=== PATIENT | male | born 1950 | race Caucasian/White ===

== ENCOUNTER 2019-06-11 13:55 | Outpatient (CLI) | payer MEDICARE, OTHER, SELFPAY ==
[2019-06-11 15:05] LABS: Basophils % 0.5 %; Eosinophils # 0.2 10^3/uL (0.0-0.8); Eosinophils % 2.5 %; Hematocrit 45.7 % (42.0-52.0); Hemoglobin 15.5 g/dL (11.7-16.6); Lymphocytes # 1.8 10^3/uL (0.8-4.8); Lymphocytes % 28.9 %; Mean Corpuscular HGB Conc 33.9 g/dL (30.0-36.0); Mean Corpuscular Hemoglobin 32.7 pg (28.0-34.0); Mean Corpuscular Volume 96.4 fL (80-94); Mean Platelet Volume 9.3 fL (7.4-10.4); Monocytes # 0.4 10^3/uL (0.2-0.9); Monocytes % 7.2 %; Neutrophils # 3.7 10^3/uL (1.8-7.7); Neutrophils % 60.6 %; Nucleated Red Blood Cells % 0 %; Platelet Count 262 10^3/cmm (130-400); Red Blood Count 4.74 10^6/uL (4.1-5.3); Red Cell Distribution Width 12.4 % (12.1-15.1); White Blood Count 6.1 10^3/uL (4.0-10.0)
[2019-06-11 15:18] LABS: Alanine Aminotransferase 18 U/L (0-41); Albumin Level 4.1 g/dL (3.5-5.2); Alkaline Phosphatase 75 IU/L (40-130); Anion Gap 17.4 (5-19); Blood Urea Nitrogen 14 mg/dL (8-23); Calcium 9.3 mg/dL (8.5-10.5); Carbon Dioxide 23 mmol/L (22-29); Chloride 103 mmol/L (98-107); Globulin 2.5 g/dL (1.3-4.6); Glomerular Filtration Rate 96.1 mL/min (90-130); Glucose 145 mg/dL (65-115); Osmolality Calculated 287 mOsm/kg (285-295); Potassium 4.4 mmol/L (3.5-5.1); Sodium 139 mmol/L (136-145); Total Bilirubin 0.3 mg/dL (0.15-1.2); Total Protein 6.6 g/dL (6.6-8.7)
[2019-06-11 17:55] LABS: Aspartate Amino Transferase 20 U/L (0-40)
[2019-06-11 17:56] LABS: Lactate Dehydrogenase 202 U/L (135-225)
--- NOTE | 2019-06-11 19:25 | ONC FU_ITS ---
Dr. Pritchard Patient Follow-Up Note Patient: Oscar Marques Unit #: [id number]: 1950 Dicatated By: Earnest Pritchard M.D.Date of Visit:Jun 11, 2019 Onc Med Follow-up/Prog Note Chief Complaint: Lymphoma. History of Present Illness: This is a 68 year-old man with diffuse large B-cell lymphoma, germinal center subtype, by clinical evaluation stage IIA. On 05/04/2017 he had presented to the emergency room after become aware of a lump in his upper right thigh/right groin area. Contrast-enhanced CT of the abdomen/pelvis showed right proximal anterior thigh and inguinal lymphadenopathy measuring up to 4.8 x 3.3 x 5.0 cm. Also noted was central mesenteric adenopathy/mass measuring 3.0 x 2.0 cm. A right iliac chain lymph node measured 9.7 mm. The right midabdomen showed a short segment of small bowel demonstrating wall thickening and enhancement with adjacent fat stranding and nodularity, suspicious for nonobstructing lesion. The liver and spleen appeared unremarkable. He was referred to Dr. Talbot. On 05/09/2017 he underwent right inguinal femoral lymph node biopsy. Pathology showed a monotypic B-cell with germinal center phenotype. The cells were positive for CD19, CD20, CD10, FMC 7, and CD23. There was surface kappa light chain restriction noted. The cells were negative for CD5. Overall, the tumor was felt to be comprised 90% of diffuse large B-cell lymphoma, germinal center subtype, and 10% grade 3A follicular lymphoma. Staging PET/CT on 05/18/2017 showed at least 2 hypermetabolic right inguinal lymph nodes consistent with residual lymphoma, the dominant lesion measuring 1.8 cm with SUV 8.0. A central mesenteric lymph node measured 2.7 cm with SUV 6.0, indicating probable lymphoma. There was subtle, questionable activity noted in a right axillary lymph node. This was felt to be possibly reactive, though lymphoma could not be excluded. An irregular 1 cm right upper lobe pulmonary nodule was FDG negative. Mediastinal lymph nodes appeared radiographically benign and without significant FDG uptake. There were no other areas of abnormal uptake described. He began treatment with R-CHOP chemotherapy, cycle 1 day 1 on 05/23/2017. His baseline echocardiogram showed normal left ventricular ejection fraction at 60%. He tolerated the treatment without any acute toxicity. He did develop some mild constipation, which subsequently resolved. He had only moderately severe neutropenia with a dominique ANC of 900. He recovered uneventfully. He is able to proceed with cycle 2 on 06/19/2017. On 06/26/2017 he presented with acute onset of swelling in the right arm. His venous Doppler showed occlusive thrombus in the right subclavian and internal jugular veins. This was presumably Port-A-Cath related. He began anticoagulation with apixaban. He was seen by Dr. Talbot. At that point the swelling was improving, we opted to try and salvage the port. However, on a follow-up fluoroscopy study, the Port-A-Cath tip had migrated, and it did have to be repositioned. Restaging PET/CT on 07/06/2017 showed only subcentimeter residual right inguinal lymph nodes and residual central mesenteric lesion measuring 1 cm, both FDG negative. The questionable right axillary lymph node also was noted to be subcentimeter and FDG negative. Overall, the findings were consistent with complete response to treatment. He was then continued with cycle 3 of R-CHOP on 07/11/2017, with cycle 4 on 07/31/2017, with cycle 5 on 08/21/2017, and with cycle 6 on 09/11/2017. Restaging PET/CT on 10/05/2017 showed no evidence for recurrent or residual malignancy, consistent with complete response. His other medical illnesses include hypertension, hyperlipidemia, and coronary artery disease. He suffered a very mild heart attack 12 years ago. He also has mild asthma, and he has degenerative arthritis. He is a nonsmoker. INTERIM HISTORY: His surveillance CT scans of the chest, abdomen, and pelvis on 07/11/2018 showed no evidence for recurrent lymphoma. There was no adenopathy noted within the chest, abdomen, or pelvis. He continued on observation/expectant management. He is seen for a followup visit. He has been feeling pretty good generally, though he does have some new complaints. The most significant is that he has been having soreness in the right axillary area and also in the right popliteal area. This is been going on for about 2 months. He has not been aware of any injury or other precipitating cause. His energy is not as good as it used to be, but better than it was right after chemotherapy. He pretty much has normal activity. ECOG score is 0. His appetite is good. He has not had fever. Within the past few weeks he has developed some mild night sweating. His breathing is okay with normal activity. He does not complain of cough and he has not been having chest pain. He has no GI or complaints. He does have some achy joints, mainly the hips, knees, and shoulders. He does not complain of headache. He had a significant episode of vertigo which started shortly after his last visit here. It lasted for about a week. He has no focal neurologic symptoms. Medications: Aspir-81 1 (81 mg) Tablet, enteric coated Oral daily, Calcium 1 (650 mg) Tablet Oral daily, Cholecalciferol 1 (5000 Units) Tablet Oral daily, Co Q10 1 (120 mg) Capsule Oral daily, Colace 1 (100 mg) Capsule Oral daily, Lisinopril 1 (5 mg) Tablet Oral daily, Metoprolol Tartrate 1 (25 mg) Tablet Oral b.i.d., Multivitamin Adult 1 Tablet Oral daily, Saw [place] 1 (1000 mg) Capsule Oral daily, Simvastatin 1 (20 mg) Tablet Oral daily Allergies: bee sting and wasp stings. Review of Systems: Constitutional - His energy level is generally good. He is doing all his normal activity. His appetite is good and weight is stable. No fever, chills or hot flashes. Recently he has been having some sweating at night. ECOG score is 0, ENMT - No sinus congestion/drainage. No mouth sores. No sore throat or difficulty swallowing, Hematologic/Lymphatic - No abnormal bruising or bleeding, Respiratory - No shortness of breath. No cough. No pleuritic pain or hemoptysis, Cardiovascular - No angina pain. No palpitations, Gastrointestinal - No nausea or vomiting. No heartburn or acid reflux. No diarrhea or constipation. No blood in the stool or black stools, Genitourinary (M) - No dysuria or hematuria. No urinary frequency. No urgency or incontinence, Musculoskeletal - He has some new soreness/tenderness in his right axilla and in his right popliteal area. He has some arthritis pain in his hips, knees, and shoulders, Integumentary - No skin complications, Neurologic - No headache. He had an episode of vertigo after his last visit here. It lasted about a week. No numbness/paresthesias or other focal neurologic symptoms, Psychiatric - No anxiety or depression. No insomnia. Vital Signs: Performed on Jun 11, 2019 14:02 Height - 73.00 in Weight - 276.6 lbs (HIGH) BSA - 2.47 sq.m BMI - 36.49 (HIGH) Temperature - 98.4 F Pulse - 85 /min Respiration - 20 /min BP - 117/76 mm(hg) O2 Sat - 95 % (LOW) Pain - 0 Physical Examination: Constitutional - He looks good generally, Eyes - Sclerae nonicteric. Conjunctivae clear, ENMT - No lesions noted in the oral cavity, Hematologic/Lymphatic - There is tenderness in the right axilla and in the right popliteal node area. I do not feel any cervical, clavicular, or axillary, or inguinal adenopathy, Respiratory - Lungs are clear with good air movement bilaterally, Cardiovascular - Heart rhythm is regular. There is no murmur, gallop, or rub noted, Abdomen - Soft. Liver and spleen are not enlarged. There is no abdominal mass noted and there is no apparent ascites, Extremities - Slight edema at the ankles. Dorsalis pedis pulses are palpable bilaterally. The circumference of the upper right arm measures about 1 cm greater than the left, Neurologic - No focal neurologic deficits noted. Lab/Imaging: Test performed on Jun 11, 2019 14:45 LDH (Total) 202 U/L Sodium 139 mmol/L Potassium 4.4 mmol/L Chloride 103 mmol/L CO2 23 mmol/L Anion Gap 17.4 BUN 14 mg/dL Creatinine 0.8 mg/dL Cr Clearance (Est) 149.8000 mL/min eGFR 96.1 mL/min Glucose 145 mg/dL Calcium 9.3 mg/dL Protein, Total 6.6 g/dL Albumin 4.1 g/dL Globulin 2.5 g/dL Bilirubin, Total 0.3 mg/dL ALT (SGPT) 18 U/L AST (SGOT) 20 U/L Alkaline Phosphatase 75 IU/L WBC 6.1 10 3/uL RBC 4.74 10 6/uL HGB 15.5 g/dL HCT 45.7 % MCV 96.4 fL MCH 32.7 pg MCHC 33.9 g/dL RDW 12.4 % Platelet Count 262 10 3/cmm MPV 9.3 fL Neutrophils 3.7 10 3/uL Lymphocytes 1.8 10 3/uL Monocytes 0.4 10 3/uL Eosinophils 0.2 10 3/uL Basophils 0.0 10 3/uL Neutrophil % 60.6 % Lymphocyte % 28.9 % Monocyte % 7.2 % Eosinophil % 2.5 % Basophils % 0.5 % Impression: 1. Patient with diffuse large B-cell lymphoma, germinal center subtype. By clinical evaluation, his disease is stage IIA. 2. He underwent right inguinal femoral lymph node biopsy on 05/09/2017. His other medical illnesses include: 3. Hypertension. 4. Hyperlipidemia. 5. Coronary artery disease with history of light heart attack 12 years ago. He has been managed medically. 6. Mild asthma. 7. Degenerative arthritis. He underwent treatment with 6 cycles of R-CHOP chemotherapy, from 05/29/2017 to 09/11/2017. His treatment was complicated by a Port-A-Cath related thrombosis, requiring repositioning of the catheter tip and anticoagulation with apixaban. Other side effects included neutropenia, fatigue, and mild neuropathy. His restaging PET/CT on 10/05/2017 was consistent with complete response. During follow-up he has continued to have some fatigue and he still has some residual neuropathy, though it did show gradual improvement. His surveillance CT scans in June 2018 showed no evidence for recurrent lymphoma, and he continued observation/expectant management. During the past 2 months he has had soreness in the right axilla and right popliteal area. This is a little worrisome, as there is been no apparent cause for it and they are both lymph node bearing areas. He also has been having some mild night sweating. Plan: I am going to schedule him for a restaging whole-body PET/CT, subject to verification of insurance coverage. He will have further evaluation as indicated. Signed By: Earnest Pritchard M.D. <<Signature on File>>
== END 2019-06-11 13:56 | disposition home or self-care (01) ==
LOC: ONCMED 13:57
PROVIDERS: Family Provider Family Medicine; PCP Family Medicine; Visit Provider Internal Medicine Medical Oncology
DX: Z08 Encounter for follow-up examination after completed treatment for malignant neoplasm (principal); Z85.72 Personal history of non-Hodgkin lymphomas; I10 Essential (primary) hypertension; E78.5 Hyperlipidemia, unspecified; I25.10 Atherosclerotic heart disease of native coronary artery without angina pectoris; I25.2 Old myocardial infarction; J45.20 Mild intermittent asthma, uncomplicated; M19.90 Unspecified osteoarthritis, unspecified site; Z79.82 Long term (current) use of aspirin; Z79.899 Other long term (current) drug therapy; Z92.21 Personal history of antineoplastic chemotherapy
CPT/HCPCS: 36415; 80053; 83615; 85025; 99214

== ENCOUNTER 2020-01-07 14:04 | Outpatient (CLI) | payer MEDICARE, OTHER, SELFPAY ==
[2020-01-07 14:43] LABS: Basophils % 0.5 %; Eosinophils # 0.2 10^3/uL (0.0-0.8); Eosinophils % 2.3 %; Hematocrit 45.4 % (42.0-52.0); Hemoglobin 15.1 g/dL (11.7-16.6); Lymphocytes # 1.8 10^3/uL (0.8-4.8); Lymphocytes % 21.8 %; Mean Corpuscular HGB Conc 33.3 g/dL (30.0-36.0); Mean Corpuscular Hemoglobin 32.2 pg (28.0-34.0); Mean Corpuscular Volume 96.8 fL (80-94); Mean Platelet Volume 9.3 fL (7.4-10.4); Monocytes # 0.5 10^3/uL (0.2-0.9); Neutrophils # 5.83 10^3/uL (1.8-7.7); Nucleated Red Blood Cells % 0 %; Platelet Count 307 10^3/cmm (130-400); Red Blood Count 4.69 10^6/uL (4.1-5.3); Red Cell Distribution Width 12.6 % (12.1-15.1); White Blood Count 8.4 10^3/uL (4.0-10.0)
[2020-01-07 14:55] LABS: Alanine Aminotransferase 18 U/L (0-41); Albumin Level 4.4 g/dL (3.5-5.2); Alkaline Phosphatase 80 IU/L (40-130); Anion Gap 16.2 (5-19); Aspartate Amino Transferase 18 U/L (0-40); Blood Urea Nitrogen 18 mg/dL (8-23); Calcium 10.1 mg/dL (8.5-10.5); Carbon Dioxide 23 mmol/L (22-29); Chloride 102 mmol/L (98-107); Globulin 2.7 g/dL (1.3-4.6); Glomerular Filtration Rate 66.4 mL/min (90-130); Glucose 128 mg/dL (65-115); Lactate Dehydrogenase 184 U/L (135-225); Osmolality Calculated 288 mOsm/kg (285-295); Potassium 4.2 mmol/L (3.5-5.1); Sodium 137 mmol/L (136-145); Total Bilirubin 0.5 mg/dL (0.15-1.2); Total Protein 7.1 g/dL (6.6-8.7)
--- NOTE | 2020-01-11 07:31 | ONC FU_ITS ---
Dr. Pritchard Patient Follow-Up Note Patient: Oscar Marques Unit #: [id number]: 1950 Dicatated By: Earnest Pritchard M.D.Date of Visit:Jan 07, 2020 Onc Med Follow-up/Prog Note Chief Complaint: Lymphoma. History of Present Illness: This is a 69 year-old man with diffuse large B-cell lymphoma, germinal center subtype, by clinical evaluation stage IIA. On 05/04/2017 he had presented to the emergency room after become aware of a lump in his upper right thigh/right groin area. Contrast-enhanced CT of the abdomen/pelvis showed right proximal anterior thigh and inguinal lymphadenopathy measuring up to 4.8 x 3.3 x 5.0 cm. Also noted was central mesenteric adenopathy/mass measuring 3.0 x 2.0 cm. A right iliac chain lymph node measured 9.7 mm. The right midabdomen showed a short segment of small bowel demonstrating wall thickening and enhancement with adjacent fat stranding and nodularity, suspicious for nonobstructing lesion. The liver and spleen appeared unremarkable. He was referred to Dr. Talbot. On 05/09/2017 he underwent right inguinal femoral lymph node biopsy. Pathology showed a monotypic B-cell with germinal center phenotype. The cells were positive for CD19, CD20, CD10, FMC 7, and CD23. There was surface kappa light chain restriction noted. The cells were negative for CD5. Overall, the tumor was felt to be comprised 90% of diffuse large B-cell lymphoma, germinal center subtype, and 10% grade 3A follicular lymphoma. Staging PET/CT on 05/18/2017 showed at least 2 hypermetabolic right inguinal lymph nodes consistent with residual lymphoma, the dominant lesion measuring 1.8 cm with SUV 8.0. A central mesenteric lymph node measured 2.7 cm with SUV 6.0, indicating probable lymphoma. There was subtle, questionable activity noted in a right axillary lymph node. This was felt to be possibly reactive, though lymphoma could not be excluded. An irregular 1 cm right upper lobe pulmonary nodule was FDG negative. Mediastinal lymph nodes appeared radiographically benign and without significant FDG uptake. There were no other areas of abnormal uptake described. He began treatment with R-CHOP chemotherapy, cycle 1 day 1 on 05/23/2017. His baseline echocardiogram showed normal left ventricular ejection fraction at 60%. He tolerated the treatment without any acute toxicity. He did develop some mild constipation, which subsequently resolved. He had only moderately severe neutropenia with a dominique ANC of 900. He recovered uneventfully. He is able to proceed with cycle 2 on 06/19/2017. On 06/26/2017 he presented with acute onset of swelling in the right arm. His venous Doppler showed occlusive thrombus in the right subclavian and internal jugular veins. This was presumably Port-A-Cath related. He began anticoagulation with apixaban. He was seen by Dr. Talbot. At that point the swelling was improving, we opted to try and salvage the port. However, on a follow-up fluoroscopy study, the Port-A-Cath tip had migrated, and it did have to be repositioned. Restaging PET/CT on 07/06/2017 showed only subcentimeter residual right inguinal lymph nodes and residual central mesenteric lesion measuring 1 cm, both FDG negative. The questionable right axillary lymph node also was noted to be subcentimeter and FDG negative. Overall, the findings were consistent with complete response to treatment. He was then continued with cycle 3 of R-CHOP on 07/11/2017, with cycle 4 on 07/31/2017, with cycle 5 on 08/21/2017, and with cycle 6 on 09/11/2017. Restaging PET/CT on 10/05/2017 showed no evidence for recurrent or residual malignancy, consistent with complete response. His other medical illnesses include hypertension, hyperlipidemia, and coronary artery disease. He suffered a very mild heart attack 12 years ago. He also has mild asthma, and he has degenerative arthritis. He is a nonsmoker. INTERIM HISTORY: His surveillance CT scans of the chest, abdomen, and pelvis on 07/11/2018 showed no evidence for recurrent lymphoma. There was no adenopathy noted within the chest, abdomen, or pelvis. He continued on observation/expectant management. He is seen for a followup visit. He has been feeling pretty good generally. His most significant complaint is that both he and his have recently had COVID-19 infection, though at this point he has pretty well recovered. He still tires out real fast, but his energy is otherwise pretty good. His ECOG score is 1. His appetite had declined significantly, but it is getting better. He does not have fever or night sweats. He has some shortness of breath and he has occasional cough. He does not complain of chest pain. He has no GI/ complaints other than some constipation. He has joint pain, which he manages adequately with Excedrin. He does not complain of headache. He does have episodes of inner ear vertigo. 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 Medications: Aspir-81 1 (81 mg) Tablet, enteric coated Oral daily, Calcium 1 (650 mg) Tablet Oral daily, Cholecalciferol 1 (5000 Units) Tablet Oral daily, Co Q10 1 (120 mg) Capsule Oral daily, Colace 1 (100 mg) Capsule Oral daily, Lisinopril 1 (5 mg) Tablet Oral daily, Metoprolol Tartrate 1 (25 mg) Tablet Oral b.i.d., Multivitamin Adult 1 Tablet Oral daily, Saw [place] 1 (1000 mg) Capsule Oral daily, Simvastatin 1 (20 mg) Tablet Oral daily Allergies: bee sting and wasp stings. Review of Systems: Constitutional - His energy has been pretty good, but he does tire out real fast. Appetite had declined with the COVID-19 illness, but is getting better. He does not have fever or night sweats. ECOG score is 1, ENMT - No sinus congestion/drainage. No mouth sores. No sore throat or difficulty swallowing, Hematologic/Lymphatic - No abnormal bruising or bleeding, Respiratory - He has some shortness of breath. He has just occasional cough. No pleuritic pain or hemoptysis, Cardiovascular - No angina pain. No palpitations, Gastrointestinal - No nausea or vomiting. No heartburn or acid reflux. He has had some constipation. No blood in the stool or black stools, Genitourinary (M) - No dysuria or hematuria. No urinary frequency. No urgency or incontinence, Musculoskeletal - He has joint pain, but it is managed adequately with Excedrin, Integumentary - No skin rash, Neurologic - No headache. He has episodes of inner ear vertigo. 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 No other focal neurologic symptoms, Psychiatric - No anxiety or depression. No insomnia. Vital Signs: Performed on Jan 07, 2020 15:02 Height - 73.00 in Weight - 269.8 lbs (LOW) BSA - 2.44 sq.m BMI - 35.60 (HIGH) Temperature - 98.2 F (LOW) Pulse - 99 /min Respiration - 20 /min BP - 118/71 mm(hg) O2 Sat - 97 % Pain - 0 Physical Examination: Constitutional - He looks good generally, Eyes - Sclerae nonicteric. Conjunctivae clear, ENMT - No lesions noted in the oral cavity, Hematologic/Lymphatic - No cervical, clavicular, or axillary adenopathy, Respiratory - Lungs are clear with some decrease in air movement bilaterally, Cardiovascular - Heart rhythm is regular. There is no murmur, gallop, or rub noted, Abdomen - Soft. Liver and spleen are not enlarged. There is no abdominal mass noted and there is no apparent ascites, Extremities - No edema, Neurologic - No focal neurologic deficits noted. Lab/Imaging: Test performed on Jan 07, 2020 14:15 LDH (Total) 184 U/L Sodium 137 mmol/L Potassium 4.2 mmol/L Chloride 102 mmol/L CO2 23 mmol/L Anion Gap 16.2 BUN 18 mg/dL Creatinine 1.1 mg/dL Cr Clearance (Est) 107.4300 mL/min eGFR 66.4 mL/min Glucose 128 mg/dL Osmolality - Calculated 288 mOsm/kg Calcium 10.1 mg/dL Protein, Total 7.1 g/dL Albumin 4.4 g/dL Globulin 2.7 g/dL Bilirubin, Total 0.5 mg/dL ALT (SGPT) 18 U/L AST (SGOT) 18 U/L Alkaline Phosphatase 80 IU/L WBC 8.4 10 3/uL RBC 4.69 10 6/uL HGB 15.1 g/dL HCT 45.4 % MCV 96.8 fL MCH 32.2 pg MCHC 33.3 g/dL RDW 12.6 % Platelet Count 307 10 3/cmm MPV 9.3 fL Neutrophils 5.83 10 3/uL Lymphocytes 1.8 10 3/uL Monocytes 0.5 10 3/uL Eosinophils 0.2 10 3/uL Basophils 0.0 10 3/uL Neutrophil % 69.0 % Lymphocyte % 21.8 % Monocyte % 6.0 % Eosinophil % 2.3 % Basophils % 0.5 % NRBC % 0 % Impression: 1. Patient with diffuse large B-cell lymphoma, germinal center subtype. By clinical evaluation, his disease is stage IIA. 2. He underwent right inguinal femoral lymph node biopsy on 05/09/2017. His other medical illnesses include: 3. Hypertension. 4. Hyperlipidemia. 5. Coronary artery disease with history of light heart attack 12 years ago. He has been managed medically. 6. Mild asthma. 7. Degenerative arthritis. He underwent treatment with 6 cycles of R-CHOP chemotherapy, from 05/29/2017 to 09/11/2017. His treatment was complicated by a Port-A-Cath related thrombosis, requiring repositioning of the catheter tip and anticoagulation with apixaban. Other side effects included neutropenia, fatigue, and mild neuropathy. His restaging PET/CT on 10/05/2017 was consistent with complete response. During follow-up he has continued to have some fatigue and he still has some residual neuropathy, though it did show gradual improvement. His surveillance CT scans in June 2018 showed no evidence for recurrent lymphoma, and he continued observation/expectant management. He has had a recent COVID-19 infection, from which he has now pretty well recovered. He still has some fatigue, but that is getting better. His clinical status has otherwise been stable. He does have some residual neuropathy from the chemotherapy. There has been no evidence, though, of recurrence of the lymphoma. Plan: He remains on observation/expectant management. I will see him again in 6 months. Signed By: Earnest Pritchard M.D. <<Signature on File>>
== END 2020-01-07 14:05 | disposition home or self-care (01) ==
LOC: ONCMED 14:08
PROVIDERS: PCP Family Medicine; Visit Provider Internal Medicine Medical Oncology
DX: Z08 Encounter for follow-up examination after completed treatment for malignant neoplasm (principal); Z85.72 Personal history of non-Hodgkin lymphomas; R53.83 Other fatigue; G62.0 Drug-induced polyneuropathy; T45.1X5S Adverse effect of antineoplastic and immunosuppressive drugs, sequela; I10 Essential (primary) hypertension; I25.10 Atherosclerotic heart disease of native coronary artery without angina pectoris; E78.5 Hyperlipidemia, unspecified; J45.909 Unspecified asthma, uncomplicated; M19.90 Unspecified osteoarthritis, unspecified site; I25.2 Old myocardial infarction; Z92.21 Personal history of antineoplastic chemotherapy
CPT/HCPCS: 36415; 80053; 83615; 85025; G0463

== ENCOUNTER 2020-06-07 11:55 | Observation (INO) | payer MEDICARE, OTHER, SELFPAY ==
[2020-06-07] VITALS (11 sets, daily range): BP systolic 110–146; BP diastolic 69–102; PULSE 70–91; RESP 18–22; TEMP 36.5–37.2; O2SAT 93–99; BMI 34.2
--- NOTE | 2020-06-07 13:08 | ECG_ITS ---
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 Measurements Intervals Cotton Rate: 86 P: 32 NC: 176 QRS: -32 QRSD: 125 T: 9 QT: 368 QTc: 440 Interpretive Statements SINUS RHYTHM MARKED LEFT AXIS DEVIATION [QRS AXIS < -30] RIGHT BUNDLE BRANCH BLOCK [120+ ms QRS DURATION, UPRIGHT V1, 40+ ms S IN I/aVL/V4/V5/V6] No previous ECG available for comparison Electronically Signed On 06-07-2020 20:17:24 CDT by Kirby Santo M.D. [id number]
--- NOTE | 2020-06-07 13:08 | XRR_ITS ---
PROCEDURE INFORMATION: Exam: XR Chest Exam date and time: 06/07/2020 1:15 PM Age: 69 years old Clinical indication: Chest pain; Other: Central; Patient HX: HX of lymphoma; Additional info: Chest pain, central 2-3 days TECHNIQUE: Imaging protocol: XR of the chest Views: 1 view. COMPARISON: CT Chest/Abdomen/Pelvis w IV* 07/11/2018 9:43 AM FINDINGS: Lungs: Hyperinflation. No CHF or focal consolidation. Pleural spaces: Unremarkable. No pleural effusion. No pneumothorax. Heart/Mediastinum: Unremarkable. No cardiomegaly. Bones/joints: No acute findings. XR/XR chest 1V portable [id number] IMPRESSION: No acute findings.
--- NOTE | 2020-06-07 13:34 | W.ED.CHESTPA ---
HPI - Chest Pain General: Chief Complaint: Chest Pain Stated Complaint: CHEST PRESSURE Time Seen by Provider: 06/07/20 13:08 History of Present Illness: HPI narrative: 69-year-old male presents emergency room complaining of chest discomfort. He has no history of coronary disease last several days he has noticed that with exertion he gets chest pressure the last up to 30 minutes it is relieved by rest and nitroglycerin. Today he had some slight pressure in his chest while resting. He had an [place] several years ago but never had any stenting done. He is not had any stress test since then. MD complaint: chest heaviness and chest discomfort Pertinent past history: coronary artery disease Onset (ago): day(s) Timing of current episode: episodic Prior episodes: Yes Onset: during exertion Pain location: substernal and left chest Pain radiation: none Severity: moderate Quality: tightness and heaviness Relieving factors: nitroglycerin and rest Exacerbating factors: nothing Associated symptoms: Reports dyspnea, fever(s) and leg edema; Deny abdominal pain, diaphoresis, nausea, palpitations, sense of impending doom, syncope or vomiting Treatment prior to arrival: none Review of Systems Const: Reports: fever(s); Denies: diaphoresis ENMT: Denies: throat pain, ear or mastoid pain, nasal discharge or nasal congestion Card: Denies: palpitations or syncope Resp: Reports: dyspnea GI: Denies: abdominal pain, nausea or vomiting : Denies: flank pain, dysuria, urinary frequency or urinary urgency Skin/Breast: Denies: rash or pruritus PFS ED PFSH: Medical History Coronary artery disease HTN (hypertension) Hyperlipidemia Lymphoma Social History (Updated 06/07/20 @ 22:12 by John Martin M.D) Marital status: Physical Exam Const: COMMON NORMALS: no acute distress GENERAL APPEARANCE: cooperative and comfortable ORIENTATION/CONSCIOUSNESS: Yes awake, Yes oriented to person, Yes oriented to place and Yes oriented to time HENMT: COMMON NORMALS: normocephalic, atraumatic and hearing grossly normal bilaterally HEAD & SCALP: normocephalic and atraumatic Neck/C-Spine: COMMON NORMALS: no JVD Resp: COMMON NORMALS: normal respiratory effort, No retractions, No use of accessory muscles and clear to auscultation bilaterally AUSCULTATION: clear to auscultation bilaterally Cardio: COMMON NORMALS: no JVD, regular rate, regular rhythm and No murmurs present (Cardio) RATE: regular rate RHYTHM: regular rhythm GI: COMMON NORMALS: Soft to palpation and No hepatosplenomegaly present AUSCULTATION: Yes normoactive bowel sounds PALPATION: Yes Soft to palpation, No Tenderness to palpation present (GI), No Guarding due to palpation present (GI) and Yes No hepatosplenomegaly present Extremity: COMMON NORMALS: normal to inspection, capillary refill normal, no clubbing, cyanosis or edema, no calf tenderness and no pedal edema Neuro: SENSORIUM/ORIENTATION: Yes oriented to person, Yes oriented to place and Yes oriented to time Skin: COMMON NORMALS: no rashes or lesions noted GENERAL SKIN EXAM: no rashes or lesions noted Course Vital Signs: Vital signs: Vital Signs Temperature 98.9 F 06/08/20 12:51 Pulse Rate 86 06/08/20 13:00 Respiratory Rate 21 H 06/08/20 13:00 Blood Pressure 122/79 06/08/20 13:00 Pulse Oximetry 93 06/08/20 13:00 MDM - Chest Pain MDM Narrative: Medical decision making narrative: Patient has unstable angina. Symptoms have been relieved by nitro. We will go ahead and admit to consult Dr. Kelly. Orders have been written. Discussed with Dr. Cross. Lab Data: Labs: Lab Results 06/07/20 06/07/20 06/07/20 Range/Units 13:38 13:38 13:38 WBC 6.6 (4.0-10.0) 10^3/ uL RBC 4.85 (4.1-5.3) 10^6/u L Hgb 15.5 (11.7-16.6) g/dL Hct 47.4 (42.0-52.0) % MCV 97.7 H (80-94) fL MCH 32.0 (28.0-34.0) pg MCHC 32.7 (30.0-36.0) g/dL RDW 12.3 (12.1-15.1) % Plt Count 287 (130-400) 10^3/c mm MPV 9.4 (7.4-10.4) fL Neut % (Auto) 58.9 % Lymph % (Auto) 27.6 % [place] % (Auto) 8.7 % Eos % (Auto) 3.7 % Baso % (Auto) 0.8 % Neut # (Auto) 3.86 (1.8-7.7) 10^3/u L Lymph # (Auto) 1.8 (0.8-4.8) 10^3/u L [place] # (Auto) 0.6 (0.2-0.9) 10^3/u L Eos # (Auto) 0.2 (0.0-0.8) 10^3/u L Baso # (Auto) 0.1 (0.0-0.1) 10^3/u L Nucleated RBC % (a uto) 0 % Nucleated RBCs # 0.0 /100WBC Sodium 138 (136-145) mmol/L Potassium 4.3 (3.5-5.1) mmol/L Chloride 102 (98-107) mmol/L Carbon Dioxide 26 (22-29) mmol/L Anion Gap 14.3 (5-19) BUN 14 (8-23) mg/dL Creatinine 0.7 (0.7-1.2) mg/dL GFR Calculation 111.8 (90-130) mL/min Glucose 93 (65-115) mg/dL Calculated Osmolal ity 286 (285-295) mOsm/k g Calcium 9.8 (8.5-10.5) mg/dL Total Bilirubin 0.4 (0.15-1.2) mg/dL AST 16 (0-40) U/L ALT 17 (0-41) U/L Alkaline Phosphata se 79 (40-130) IU/L Creatine Kinase 106 (39-308) U/L Troponin T Baselin e 11 (0-15) ng/L Total Protein 6.8 (6.6-8.7) g/dL Albumin 4.4 (3.5-5.2) g/dL Globulin 2.4 (1.3-4.6) g/dL Discharge Plan Discharge Patient Disposition: Admitted As Inpatient Admit Provider: Sal Marks Clinical Impression: Unstable angina, Coronary artery disease Condition: Stable Discharge Diet: Cardiac Discharge Activity: Increase activity as tolerated Coding Level of Care Code ED Cable Testers Helper for Chg Fwd Exam Comprehensive
[2020-06-07] MEDS: aspirin 81 mg Chew Tablet 162 MG PO (14:08)
[2020-06-07 14:16] LABS: Basophils # 0.1 10^3/uL (0.0-0.1); Basophils % 0.8 %; Eosinophils # 0.2 10^3/uL (0.0-0.8); Eosinophils % 3.7 %; Hematocrit 47.4 % (42.0-52.0); Hemoglobin 15.5 g/dL (11.7-16.6); Lymphocytes # 1.8 10^3/uL (0.8-4.8); Lymphocytes % 27.6 %; Mean Corpuscular HGB Conc 32.7 g/dL (30.0-36.0); Mean Corpuscular Volume 97.7 fL (80-94); Mean Platelet Volume 9.4 fL (7.4-10.4); Monocytes # 0.6 10^3/uL (0.2-0.9); Monocytes % 8.7 %; Neutrophils # 3.86 10^3/uL (1.8-7.7); Neutrophils % 58.9 %; Nucleated Red Blood Cells % 0 %; Platelet Count 287 10^3/cmm (130-400); Red Blood Count 4.85 10^6/uL (4.1-5.3); Red Cell Distribution Width 12.3 % (12.1-15.1); White Blood Count 6.6 10^3/uL (4.0-10.0)
[2020-06-07 14:29] LABS: Alanine Aminotransferase 17 U/L (0-41); Albumin Level 4.4 g/dL (3.5-5.2); Alkaline Phosphatase 79 IU/L (40-130); Anion Gap 14.3 (5-19); Aspartate Amino Transferase 16 U/L (0-40); Blood Urea Nitrogen 14 mg/dL (8-23); Calcium 9.8 mg/dL (8.5-10.5); Carbon Dioxide 26 mmol/L (22-29); Chloride 102 mmol/L (98-107); Creatine Phosphokinase 106 U/L (39-308); Globulin 2.4 g/dL (1.3-4.6); Glomerular Filtration Rate 111.8 mL/min (90-130); Glucose 93 mg/dL (65-115); Osmolality Calculated 286 mOsm/kg (285-295); Potassium 4.3 mmol/L (3.5-5.1); Sodium 138 mmol/L (136-145); Total Bilirubin 0.4 mg/dL (0.15-1.2); Total Protein 6.8 g/dL (6.6-8.7)
[2020-06-07 14:33] LABS: Troponin(5th) Baseline 11 ng/L (0-15)
--- NOTE | 2020-06-07 15:08 | ECG_ITS ---
[facility] Test Date: 2020-06-07 Pat Name: Oscar Marques Department: Room: Gender: Male Proofer Prepress: : 1950 Requested By: Marco A Alan Order Number: [id number] Varun MD: Kirby Santo M.D. Measurements Intervals [place] Rate: 67 P: 63 NE: 179 QRS: -24 QRSD: 129 T: 26 QT: 407 QTc: 432 Interpretive Statements SINUS RHYTHM WITH SINUS ARRHYTHMIA BORDERLINE LEFT AXIS DEVIATION [QRS AXIS < -20] RIGHT BUNDLE BRANCH BLOCK [120+ ms QRS DURATION, UPRIGHT V1, 40+ ms S IN I/aVL/V4/V5/V6] No previous ECG available for comparison Electronically Signed On 06-07-2020 20:24:21 CDT by Kirby Santo M.D. [id number]
--- NOTE | 2020-06-07 16:38 | P.HP_ITS ---
Providers/Chief Complaint Admitting Physician: Sal Marks Primary Care Provider: Wiley Clifford MD Chief Complaint: CHEST PRESSURE History of Present Illness Oscar Marques is a 69 year old male with past medical history of coronary artery disease, remote [place], hypertension, dyslipidemia who presented to emergency room with complaints of substernal chest pain which started Saturday. The pain is intermittent. Triggered and exacerbated by exertion. Nitroglycerin provides partial relief. He also reports associated shortness of breath which started long time ago but progressively got worse over time. Denies diaphoresis. Reports some palpitations. In the emergency room chest x-ray did not show any acute ischemic changes. First troponin was unremarkable. Currently the pain has resolved. Review of Systems General: Reports: 10 or more systems reviewed and unremarkable except in HPI and below Medications/Allergies Home Medications Medication Instructions Recorded Confirmed Last Taken Type sysusfw-fyvsubpeoapnv-vkekwuqy 1 tab PO DAILY@06/07/20 06/07/20 06/07/20 History [Excedrin Extra Strength] ibuprofen 600 mg PO BEDTIME 06/07/20 06/07/20 06/06/20 History lisinopril 5 mg PO DAILY@06/07/20 06/07/20 06/07/20 History metoprolol tartrate 25 mg PO BID@06/07/20 06/07/20 06/07/20 History simvastatin 20 mg PO DAILY@209906/07/20 06/07/20 06/06/20 History Allergies Allergy/AdvReac Type Severity Reaction Status Date / Time No Known Allergies Allergy Verified 06/07/20 12:21 Vitals/I&O/Wt Last Vital Signs Temp 97.7 F 06/07/20 12:10 Pulse 72 06/07/20 14:12 Resp 22 H 06/07/20 14:12 BP 117/69 06/07/20 14:12 Pulse Ox 98 06/07/20 14:12 Weight last 48 hrs Weight 117.934 kg Physical Exam Narrative: EXAM NARRATIVE: The patient is awake alert and oriented. No acute distress. Mood and affect are appropriate. Responses are adequate. Skin is warm and dry. Moist mucous membranes Neck supple. No JVD Eyes PERRLA, extraocular muscles are intact. Normal speech No focal deficits Heart S1, S2, regular Abdomen is soft, nontender, bowel sounds are present Lungs are clear to auscultation bilaterally. No wheezes or crackles Extremities trace edema. No cyanosis or calf tenderness bilaterally. Data : 06/07/20 13:38 06/07/20 13:38 Other Labs: Laboratory Results WBC 6.6 10^3/uL (4.0-10.0) 06/07/20 13:38 RBC 4.85 10^6/uL (4.1-5.3) 06/07/20 13:38 Hgb 15.5 g/dL (11.7-16.6) 06/07/20 13:38 Hct 47.4 % (42.0-52.0) 06/07/20 13:38 MCV 97.7 fL (80-94) H 06/07/20 13:38 MCH 32.0 pg (28.0-34.0) 06/07/20 13:38 MCHC 32.7 g/dL (30.0-36.0) 06/07/20 13:38 RDW 12.3 % (12.1-15.1) 06/07/20 13:38 Plt Count 287 10^3/cmm (130-400) 06/07/20 13:38 MPV 9.4 fL (7.4-10.4) 06/07/20 13:38 Neut % (Auto) 58.9 % 06/07/20 13:38 Lymph % (Auto) 27.6 % 06/07/20 13:38 [place] % (Auto) 8.7 % 06/07/20 13:38 Eos % (Auto) 3.7 % 06/07/20 13:38 Baso % (Auto) 0.8 % 06/07/20 13:38 Neut # (Auto) 3.86 10^3/uL (1.8-7.7) 06/07/20 13:38 Lymph # (Auto) 1.8 10^3/uL (0.8-4.8) 06/07/20 13:38 [place] # (Auto) 0.6 10^3/uL (0.2-0.9) 06/07/20 13:38 Eos # (Auto) 0.2 10^3/uL (0.0-0.8) 06/07/20 13:38 Baso # (Auto) 0.1 10^3/uL (0.0-0.1) 06/07/20 13:38 Nucleated RBC % (auto) 0 % 06/07/20 13:38 Nucleated RBCs # 0.0 /100WBC 06/07/20 13:38 Sodium 138 mmol/L (136-145) 06/07/20 13:38 Potassium 4.3 mmol/L (3.5-5.1) 06/07/20 13:38 Chloride 102 mmol/L (98-107) 06/07/20 13:38 Carbon Dioxide 26 mmol/L (22-29) 06/07/20 13:38 Anion Gap 14.3 (5-19) 06/07/20 13:38 BUN 14 mg/dL (8-23) 06/07/20 13:38 Creatinine 0.7 mg/dL (0.7-1.2) 06/07/20 13:38 GFR Calculation 111.8 mL/min (90-130) 06/07/20 13:38 Glucose 93 mg/dL (65-115) 06/07/20 13:38 Calculated Osmolality 286 mOsm/kg (285-295) 06/07/20 13:38 Calcium 9.8 mg/dL (8.5-10.5) 06/07/20 13:38 Total Bilirubin 0.4 mg/dL (0.15-1.2) 06/07/20 13:38 AST 16 U/L (0-40) 06/07/20 13:38 ALT 17 U/L (0-41) 06/07/20 13:38 Alkaline Phosphatase 79 IU/L (40-130) 06/07/20 13:38 Creatine Kinase 106 U/L (39-308) 06/07/20 13:38 Troponin T Baseline 11 ng/L (0-15) 06/07/20 13:38 Troponin T 120 Minute 10.22 ng/L (0-15) 06/07/20 15:43 Delta Troponin T -0.78 ABS# (0-10) L 06/07/20 15:43 Total Protein 6.8 g/dL (6.6-8.7) 06/07/20 13:38 Albumin 4.4 g/dL (3.5-5.2) 06/07/20 13:38 Globulin 2.4 g/dL (1.3-4.6) 06/07/20 13:38 Impressions Chest X-Ray 06/07/20 13:08 IMPRESSION: No acute findings. A&P Additional A&P Information 69-year-old male with past medical history of coronary artery disease, dyslipidemia and hypertension who presents with chest pain. Acute coronary syndrome, suspected angina. The patient will be admitted to cardiac unit. Dr. Martin is consulted. The patient was given aspirin. We will continue aspirin, beta-gino, statin, as needed morphine and nitrogl ycerin. Will wait for additional recommendations from recreation therapy director. Hypertension. Currently well controlled. Dyslipidemia. We will check his fasting lipids in the morning. DVT prophylaxis. Teds and SCDs. If he remains longer than 1 midnight we will consider Lovenox. CODE STATUS. He wants to be full code. The plan of care was discussed with the patient and his at the bedside. They verbalized understanding and agreement. Attestations Medical Necessity Statement*: Possible discharge tomorrow Coding Level of Care Code Acute Bootmaker Hand for Yolette Glaser
[2020-06-07 16:39] LABS: Troponin 5 2HR 10.22 ng/L (0-15); Troponin 5 2HR Delta -0.78 ABS# (0-10)
--- NOTE | 2020-06-07 17:13 | PC.NURSE ---
Pt transferred to room 112-1 from ED. Pt A&Ox4, Resp even and non-labored no distress or c/o sob noted. Pt had no c/o chest pain or other pain or discomfort at the present time. Pts IV patent no redness or swelling noted. at bedside. no needs voiced. Pts call light in reach. Will cont to monitor.
--- NOTE | 2020-06-07 18:03 | P.CONIM_ITS ---
Providers/Reason For Consult Consulting Physican/Specialty*: John Martin MD/ Cardiology Reason for Consult*: Chest pain Requesting Physcian: Dr Rueda Attending Physician: Sal Marks Primary Care Provider: Wiley Clifford MD History of Present Illness History of Present Illness Oscar Marques is a 69 year old male with past medical history of coronary artery disease, remote [place], hypertension, dyslipidemia who presented to emergency room with complaints of substernal chest pain which started Saturday. According to patient he was lifting some heavy objects when first noted substernal chest discomfort. Got better with rest but on and off continued with activities through the day. On saturday again he had episodes of chest pain with exertion. Today he decided to come to hospital as he was still having these episodes. Nitros help partially with the discomfort. Says that he had a heart attack in the past during which angiogram showed a small vessel was the culprit. over the last several months he has noted shortness of breath as well that is worsening. EKG in the ER did not show acute ischemic changes. First 2 troponin are not significantly elevated. Review of Systems General: Reports: 10 or more systems reviewed and unremarkable except in HPI and below Const: Denies: diaphoresis Eyes: Denies: change in vision ENMT: Denies: throat pain, ear or mastoid pain, nasal discharge or nasal congestion Card: Reports: chest pain; Denies: palpitations or syncope Resp: Reports: dyspnea GI: Denies: abdominal pain, nausea or vomiting : Denies: flank pain, dysuria, urinary frequency or urinary urgency Skin/Breast: Denies: rash or pruritus Neuro: Denies: headache(s) Psych: Denies: anxiety Meds/Allergies Home Medications and Allergies Home Medications Medication Instructions Recorded Confirmed Last Taken Type jcsysqg-lzabhzubgmhvn-xlplmiws 1 tab PO DAILY@06/07/20 06/07/20 06/07/20 History [Excedrin Extra Strength] ibuprofen 600 mg PO BEDTIME 06/07/20 06/07/20 06/06/20 History lisinopril 5 mg PO DAILY@06/07/20 06/07/20 06/07/20 History metoprolol tartrate 25 mg PO BID@06/07/20 06/07/20 06/07/20 History simvastatin 20 mg PO DAILY@2100 06/07/20 06/07/20 06/06/20 History Allergies Allergy/AdvReac Type Severity Reaction Status Date / Time No Known Allergies Allergy Verified 06/07/20 12:21 PFSH Acute PFSH: Medical History Coronary artery disease HTN (hypertension) Hyperlipidemia Lymphoma Social History (Updated 06/07/20 @ 22:12 by John Martin M.D) Marital status: Vitals/I&O/Wt Last Vital Signs Temp 97.7 F 06/07/20 12:10 Pulse 73 06/07/20 16:35 Resp 21 H 06/07/20 16:25 BP 127/79 06/07/20 16:35 Pulse Ox 99 06/07/20 16:35 Weight last 48 hrs Weight 260 lb Physical Exam Narrative: EXAM NARRATIVE: GENERAL:Alert and oriented x3 Skin is warm and dry. Moist mucous membranes Neck: supple. No JVD Eyes:PERRLA Heart: S1, S2, regular. No lower extremity edema Abdomen is soft, nontender, bowel sounds are present Lungs are clear to auscultation bilaterally. No wheezes or crackles A&P Assessment and plan (1) Coronary artery disease: Status: Acute (2) Hyperlipidemia: Status: Acute (3) HTN (hypertension): Status: Acute (4) Unstable angina: Status: Acute Patient has been having exertional and rest chest pain symptoms that are concerning for unstable angina. We will assess with coronary angiography with possible percutaneous coronary intervention. Risks and benefits of the procedure have been discussed. Risks including bleeding, infection, abnormal heart rhythm, kidney function worsening, heart attack, stroke and discussed.Patient understands the risks and benefits and wants to proceed with the procedure. Aspirin, beta gino, lisinopril and atorvastatin Order echocardiogram Trend troponin NPO past midnight Thank you for involving us with care of this patient. We will continue to follow. 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
[2020-06-07] MEDS: atorvastatin 40 mg Tablet PO (20:47)
[2020-06-07] MEDS: metoprolol tartrate 25 mg Tablet PO (20:47)
[2020-06-07 21:27] LABS: Troponin 5 6HR Delta 0 ng/L (0-12)
[2020-06-08] VITALS (27 sets, daily range): BP systolic 106–159; BP diastolic 53–104; PULSE 72–115; RESP 15–29; TEMP 36.6–37.2; O2SAT 90–97
[2020-06-08 04:52] LABS: Basophils % 0.6 %; Eosinophils # 0.3 10^3/uL (0.0-0.8); Eosinophils % 3.6 %; Lymphocytes # 1.6 10^3/uL (0.8-4.8); Lymphocytes % 22.7 %; Mean Corpuscular HGB Conc 33.3 g/dL (30.0-36.0); Mean Corpuscular Hemoglobin 31.9 pg (28.0-34.0); Mean Corpuscular Volume 95.7 fL (80-94); Mean Platelet Volume 9.2 fL (7.4-10.4); Monocytes # 0.6 10^3/uL (0.2-0.9); Monocytes % 8.5 %; Neutrophils # 4.64 10^3/uL (1.8-7.7); Neutrophils % 64.3 %; Nucleated Red Blood Cells % 0 %; Platelet Count 252 10^3/cmm (130-400); Red Blood Count 4.39 10^6/uL (4.1-5.3); Red Cell Distribution Width 12.2 % (12.1-15.1); White Blood Count 7.2 10^3/uL (4.0-10.0)
[2020-06-08 05:16] LABS: Chol HDL Ratio 3.48 mg/dL (1.0-5.00); Cholesterol 108 mg/dL (0-200); HDL Cholesterol 31 mg/dL (60-100); LDL Cholesterol Calculated 50 mg/dL (50-129); LDL HDL Ratio 1.61 RATIO (0.00-3.22); Triglycerides 134 mg/dL (0-150)
[2020-06-08 05:17] LABS: Alanine Aminotransferase 15 U/L (0-41); Albumin Level 3.7 g/dL (3.5-5.2); Alkaline Phosphatase 71 IU/L (40-130); Anion Gap 12.8 (5-19); Aspartate Amino Transferase 14 U/L (0-40); Blood Urea Nitrogen 11 mg/dL (8-23); Calcium 8.7 mg/dL (8.5-10.5); Carbon Dioxide 25 mmol/L (22-29); Chloride 104 mmol/L (98-107); Globulin 2.4 g/dL (1.3-4.6); Glomerular Filtration Rate 111.8 mL/min (90-130); Glucose 99 mg/dL (65-115); Osmolality Calculated 285 mOsm/kg (285-295); Potassium 3.8 mmol/L (3.5-5.1); Sodium 138 mmol/L (136-145); Total Bilirubin 0.5 mg/dL (0.15-1.2); Total Protein 6.1 g/dL (6.6-8.7)
[2020-06-08] MEDS: diphenhydrAMINE 50 mg Capsule PO (05:47)
[2020-06-08] MEDS: sodium chloride 0.9% 1,000 ML 50 ML IV (05:47)
--- NOTE | 2020-06-08 06:21 | XACV_ITS ---
Exam Room: [facility] Ht: 185 cm Wt: 118 kg BSA: 2.50 m2 Gender: Male : 1950 Exam Priority: Routine Procedure(s): Procedure Description: Diagnostic procedure Procedure Description: Coronary angiography Diagnostic Cath Status: Urgent Diagnostic Findings * LM has luminal irregularities. * LAD has luminal irregularities, gives rise to 3 diagonal arteries that do not have significant disease. * RCA has diffuse luminal irregularities without significant stenosis. * LCx gives rise to a large OM branch. Luminal irregularies are seen. Mid Left circumflex artery is totally occluded after takoff of the OM branch. mCIRC: Severe 100% stenosis, JOHN: 0 flow. * Coronary angiography shows right dominance. Interventional Findings * Procedure detail: We planned on attempting to intervene on BOTTLE ASSEMBLER of left circumflex artery. We engaged the left main artery with XB 3.5 guide catheter. We used 0.014 run-through guidewire to attempt to cross the totally occluded segment. This was followed by attempt with a Fielder XT guidewire. However wire could not cross the occluded segment. Procedure was aborted. Final angiogram showed unchanged findings from before without any complications. Guidewire and guide catheter were removed. TR band was applied to achieve hemostasis.. * ;. Conclusions 1. 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 Unsuccessful revascularization attempt. 2. Otherwise no obstructive coronary artery disease. 3. Normal left ventricular systolic function. Ejection fraction of 50%. Recommendations * Aggressive risk factor modification. * Aspirin and statint therapy. * Blood pressure control. * Outpatient cardiology follow up. Interventional RX Recommendation: medical therapy and/or counseling Diagnostic RX Recommendation: medical therapy and/or counseling Ventriculography Ejection Fraction: 50.0 % Pressures Phase:Rest AO : 118 / 52 ( 78 ) @ 3:01:00 AM LV : 131 / -20 / @ 2:59:00 AM 129 / -11 / @ 3:00:00 AM 288 / 242 / @ 3:01:00 AM 95 / 39 / @ 3:01:00 AM Clinical Evaluation EBL: 5mL-10mL Procedural Details Admit Source: In Patient. Pre-Procedure Time Out. Identified patient by full name and date of as verbalized by the patient/guarantor. Does the consent match the physician's order: Yes. Accurate & Complete Informed Consent: Yes. Inpatient/Outpatient History & Physical on Chart: Yes. If H&P is completed, is and addenduem needed: N/A; If yes, is the addendum complete: N/A. Visualize and Verify Site with Patient/Guarantor: N/A. Relevant Radiology Images available: N/A. Pre-op teaching completed and patient verbalized understanding. The risks, benefits, and alternatives of sedation and/or procedure were discussed by physician. The patient agrees to continue. Procedure started. [facility] Clinical Fraility Score: 3: Managing Well. 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 Chest Pain Symptom Assessment: Typical Angina Symptoms. Cardiovascular Instability: No. PERRLA. Strong, equal hand baseball inspector and repairer bilaterally. Lungs clear x 5 lobes. IV Site on Arrival: 20 gauge in the left anticubital. Oxygen started at 2liters/min via nasal canula. bilateral groins was prepped with chloroprep then draped in the usual sterile fashion. right radial was prepped with chloroprep then draped in the usual sterile fashion. Baseline sample Acquired. HR: 92 BPM. Physician notified. Physician arrived. Physician scrubbed in. Immediate Pre-Procedure Time Out. Correct Patient: Yes; Correct Procedure: Yes; Correct Site: Yes; Correct Patient Position: Yes; Correct Supplies: Yes; Dried Flammable Prep: Yes; Blood Products Available: N/A;. Lidocaine 1% infiltrated to the right radial. Arterial access obtained. A 5 spanish TIG catheter in over wire. Multiple views taken of left coronary artery. Catheter redirected to the RCA. Multiple views taken of right coronary artery. Catheter out. 6 spanish XB 3.5 guide catheter was inserted over the wire. Runthrough guidewire was advanced through the guide catheter to lesion in the mid Circ. PTCA Guidewire Fielder XT, was advanced through the guide catheter to lesion in the mid Circ. both wires out. Catheter out. A 6 spanish Angled Pig catheter in over wire. LV gram performed in MUSTAFA @ 10 mL/second for a total of 30 mL. EDP Sample taken: LV 129/-12,3; HR: 98 BPM; SpO2: 99%. EDP Sample taken: LV 95/39,46; HR: 156 BPM; SpO2: 99%. Pullback taken: LV Off; AO Off; Mean: , Peak to Peak: , SEP: ; HR: 136 BPM; SpO2: 99%. Catheter out. TR band placed. Hemostasis obtained. Post Procedure: Pulses reassessed and unchanged. PERRLA. Strong, equal hand baseball inspector and repairer bilaterally. No VTE prophylaxis required. A TR Band was successful obtaining hemostatsis at the Right Radial artery insertion site. Contrast type used: Omnipaque 300 mgI/mL, 500 mL bottle. Omnipaque 134mL. Complications: none. Medication's Wasted: Lidocaine 1% = 18 mL. Medication's Wasted: Nitro = 49.8 mg. Medication's Wasted: Heparin = 2000 units. Total IV fluids: 100 mL. Estimated blood loss: 5mL-10mL. Post-op diagnosis: BOTTLE ASSEMBLER of left circ. Procedure completed. Patient transferred by wheelchair to 1st floor. Vital chart was stopped. Access Site Site: Right Radial artery Sheath Size: 6 Fr Hemostasis Method: TR Band Hemostasis Success: Successful Procedure Medications Start: 7:25 AM Stop: 7:25 AM Medication: Versed Amount: 1 mg Route: I.V. Start: 7:25 AM Stop: 7:25 AM Medication: Fentanyl Amount: 50 mcg Route: I.V. Start: 7:33 AM Stop: 7:33 AM Medication: Nitrogylcerin Amount: 200 mcg Route: I.A. Start: 7:35 AM Stop: 7:35 AM Medication: Heparin Amount: 5000 units Route: I.V. Start: 7:43 AM Stop: 7:43 AM Medication: Heparin Amount: 5000 units Route: I.V. Start: 7:58 AM Stop: 7:58 AM Medication: Versed Amount: 1 mg Route: I.V. Start: 7:58 AM Stop: 7:58 AM Medication: Fentanyl Amount: 50 mcg Route: I.V. I, the attending physician, have reviewed and verified all procedure medications. Yes, all medications given per verbal order History/Risk Factors Hypertension: Yes Dyslipidemia: Yes Peripheral Arterial Disease (PAD): No Myocardial Infarction (FL): No Obesity: No Renal Disease: No Tobacco Use: Never Prior Interventions PCI: No CABG: No Valve Surgery: No Report Signatures Finalized by John Martin MD on 06/21/2020 09:51 AM
--- NOTE | 2020-06-08 07:24 | W.PM.OPSUD ---
Surgery/Procedure H&P Update DATE OF PROCEDURE: June 08, 2020 DATE H&P PERFORMED: 06/07/20 H&P UPDATE INFORMATION: I have reviewed H&P completed within last 30 days, I have examined patient prior to procedure and No changes to prior documentation PREOP DIAGNOSIS: Unstable angina PRIMARY INDICATION FOR PROCEDURE: Unstable angina PLANNED PROCEDURE: Operation Date: 06/08/20 07:00 Proposed Procedures p Cardiac Catheterization(Not Applicable) - John Martin M.D PATIENT REASSESSED PRIOR TO SEDATION, WITH NO CHANGE NOTED: Yes PHYSICAL EXAM: alert, oriented x 3 and clear to auscultation bilaterally AIRWAY EVAL/ANESTHESIA PLAN: ASA III, Risks, benefits & alternatives of sedation and/or procedure discussed and Patient agrees to continue as planned
--- NOTE | 2020-06-08 08:37 | P.PN_ITS ---
Subjective Subjective: Interval history: Patient is doing well. he underwent coronary angiogram yesterday that showed LUMBER HACKER of LCx in distal segment but otherwise no significant coronary artery disease. Bried attempt at revascularization of the LUMBER HACKER was made but was not successful and given patient's lack of symptoms and relatively small distal vessel, procedure was aborted Vitals/I&O/Wt Last Vital Signs Temp 98 F 06/08/20 04:00 Pulse 84 06/08/20 05:02 Resp 20 H 06/08/20 04:00 BP 111/71 06/08/20 04:00 Pulse Ox 97 06/08/20 04:00 06/07/20 06/08/20 06/08/20 22:59 06:59 14:59 Output Total 350 / 350 Balance -350 / -350 Weight last 48 hrs Weight 260 lb Physical Exam Narrative: EXAM NARRATIVE: GENERAL:Alert and oriented x3 Skin is warm and dry. Moist mucous membranes Neck: supple. No JVD Eyes:PERRLA Heart: S1, S2, regular. No lower extremity edema Abdomen is soft, nontender, bowel sounds are present Lungs are clear to auscultation bilaterally. No wheezes or crackles Data : 06/08/20 04:25 06/08/20 04:25 A&P Assessment and plan (1) Coronary artery disease: Status: Acute (2) Hyperlipidemia: (3) HTN (hypertension): (4) Unstable angina: Status: Acute Patient's chest pain was typical however does not have acute lesions. There is a LUMBER HACKER of the distal LCx which could not be revascularized. Medical therapy. Patient could be from microvascular dysfunction. Will add Imdur. ECHO shows normal LV function Outpatient cardiology follow up Thank you for involving us with care of this patient. Patient is stable to be discharged home today. Please call with questions Attestations Medical Necessity Statement*: Care expected to cross 2 midnights. 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
--- NOTE | 2020-06-08 09:23 | PC.CHAP ---
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 record press supervisor visit [] Patient/Family/Request visit [] Outpatient visit [] Follow-up visit [] Physician referral [] Code/Alert [x] Routine visit [] Staff referral [] Actively dying [] Patient sleeping [x] Family support [] [] Out of room [] Palliative care [] [] Receiving care in room [] Pre-surgical visit [] Trauma [] Long length of stay [] ICU visit [] Other: Relational/Emotional Strength [] Patient feels connected with others/family/visitors/staff [] Distress [] Loneliness/isolation [] Abandonment Spirituality of Patient [] Person of Arlette [] Attends Buddhism of their [place] [] Believes in Prayer [] Reads Bible or Amish materials [] There are Spiritual issues to be addressed Gear Lapper Interventions x] Prayer [x] Active listening [x] Non-anxious presence [x] Spiritual/emotional support [] Crisis/trauma care [] Spiritual counseling [] Bereavement support [] Provided bereavement packet [] Provided Bible/devotional materials [] Provided toy/stuffed animal, coloring book to patient or family member [] Provided Communion [] Anointing/[place] [] Salvation [x] Completed spiritual assessment [] Other: Impact on Illness or Injury [] Angry [] Fearful [] Anxious [] Often cries [] Exhaustion [] Unable to work [] Unable to attend adventism [] Unable to walk/stand [] Unable to read [] Unable to drive [] Unable to eat/drink [] Unable to sleep [] Unable to be with family [] Patient intubated [] Other: Summary present with patient.. 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 all seems normal.. waiting on doctor for additional reports Time spent with patient 10 min
--- NOTE | 2020-06-08 09:27 | USCV_ITS ---
Oscar Marques Age: 69 Gender: M : 1950 Exam Date: 06/08/2020 09:59 Ordering Phys: Sal Marks MD Technologist: Catracho Snyder [place]am [place] [facility] [place]ication: ABNORMAL ANGIOGRAM BP: 125 / 77 HR: 99 Rhythm: Sinus Technical Quality: Adequate MEASUREMENTS (Male / Female) Normal Values 2D ECHO LV Diastolic Diameter PLAX 4.5 cm 4.2 - 5.9 / 3.9 - 5.3 cm LV Systolic Diameter PLAX 2.4 cm IVS Diastolic Thickness 0.9 cm 0.6 - 1.0 / 0.6 - 0.9 cm IVS Systolic Thickness 1.7 cm LVPW Diastolic Thickness 1.0 cm 0.6 - 1.0 / 0.6 - 0.9 cm LVPW Systolic Thickness 1.2 cm LVOT Diameter 2.0 cm LV Ejection Fraction 2D Teich 76.4 % LV Ejection Fraction MOD 2C 67.0 % LV Ejection Fraction 2C AL 67.1 % LA Diameter 3.8 cm M-MODE LV Diastolic Diameter MM 5.4 cm 4.2 - 5.9 / 3.9 - 5.3 cm LV Systolic Diameter MM 3.3 cm LV Ejection Fraction MM Teich 69.1 % IVS Diastolic Thickness MM 1.2 cm 0.6 - 1.0 / 0.6 - 0.9 cm IVS Systolic Thickness MM 1.7 cm LVPW Diastolic Thickness MM 0.9 cm 0.6 - 1.0 / 0.6 - 0.9 cm LVPW Systolic Thickness MM 1.5 cm RV Diastolic Diameter MM 1.8 cm Aortic Annulus Diameter 3.6 cm LA Ao Ratio MM 1.1 MV E Point Septal Separation 1.3 cm DOPPLER AV Peak Velocity 124.0 cm/s LVOT Peak Velocity 89.0 cm/s AV Area Cont Eq vti 3.0 cm squared AV Area Cont Eq pk 2.3 cm squared MV Area PHT 5.0 cm squared Mitral E to A Ratio 0.9 MV E' Velocity 36.5 cm/s Mitral E to MV E' Ratio 11.0 Mitral E to LV E' Lateral Ratio 8.6 Mitral E to LV E' Septal Ratio 15.9 TR Peak Velocity 115.7 cm/s TR Peak Gradient 5.4 mmHg TV Peak E Velocity 85.0 cm/s Right Atrial Pressure 3.0 mmHg Pulmonary Artery Systolic Pressu 8.4 mmHg PV Peak Velocity 100.0 cm/s FINDINGS Left Ventricle Normal left ventricular size and systolic function, EF 67%. No gross wall motion abnormalities. Right Ventricle The right ventricle is normal in size and function. Right Atrium The right atrium is normal in size. Left Atrium The left atrium is normal in size. Mitral Valve No Gross abnormalities noted Aortic Valve No Gross abnormalities noted Tricuspid Valve No Gross abnormalities noted Pulmonic Valve Pulmonic valve not well visualized. Pericardium Normal pericardium without effusion. Aorta Normal ascending aorta dimension. CONCLUSIONS Normal left ventricular size and systolic function, EF 67%. No gross wall motion abnormalities. No significant stenotic or regurgitant lesions. Normal cardiac chamber sizes. There is no pericardial effusion. Compared to the previous study from May 22, 2017, there may not be a significant change Dr Kirby Santo MD FACC (Electronically Signed) Final Date: 08 June 2020 21:04 S
[2020-06-08] MEDS: metoprolol tartrate 25 mg Tablet PO (09:38)
[2020-06-08] MEDS: lisinopril 5 mg Tablet PO (09:38)
[2020-06-08] MEDS: aspirin 81 mg EC Tablet PO (09:39)
--- NOTE | 2020-06-08 10:22 | PM.DCS ---
Discharge Providers Date of Admission: 06/07/20 14:53 Date of Discharge: June 08, 2020 Attending Provider at Admission: Sal Marks Attending Provider at Discharge: Sal Marks Primary Care Provider: Wiley Clifford MD Diagnoses at Discharge Discharge Diagnosis (1) Coronary artery disease: Status: Acute (2) Hyperlipidemia: Status: Acute (3) HTN (hypertension): Status: Acute (4) Unstable angina: Status: Acute Reason for Visit Reason for Visit: CHEST PRESSURE Hospital Course Hospital Course 69-year-old male with past medical history of coronary artery disease, dyslipidemia and hypertension who presents with chest pain. Acute coronary syndrome, unstable angina. Dr. Martin was consulted. The patient underwent cardiac catheterization. Defect in distal segment of circumflex artery was identified. No PCI or stent placement was performed due to caliber of the vessel. Medical management was recommended. The patient is started on aspirin and isosorbide. We will continue beta-gino, statin, lisinopril. The patient was cleared for discharge by Dr. Martin with close outpatient follow-up. Chest pain has currently resolved. The patient is eager to go home. He also denies any shortness of breath, diaphoresis, dizziness or lightheadedness. He is instructed to come back to emergency room if he develops any new symptoms. He verbalized understanding and agreement. Echo is pending. Hypertension. Currently well controlled. Dyslipidemia. Well-controlled. Physical Exam Narrative: EXAM NARRATIVE: The patient is awake alert and oriented. No acute distress. Mood and affect are appropriate. Responses are adequate. Skin is warm and dry. Moist mucous membranes Neck supple. No JVD Eyes PERRLA, extraocular muscles are intact. Normal speech No focal deficits Heart S1, S2, regular Abdomen is soft, nontender, bowel sounds are present Lungs are clear to auscultation bilaterally. No wheezes or crackles Extremities trace edema. No cyanosis or calf tenderness bilaterally. Discharge Data Data Completed and Pending: Completed Studies During Hospitalization Category Date Time Status XR chest 1V noman ble [id number] Stat Exams 06/07/20 13:08 Completed Pending at discharge Category Date Time Status [employer] request for service Routin e Exams 06/08/20 06:21 Ordered CV echo complete* [id number] Routine Ultrasound 06/08/20 09:27 Taken Labs from last 24 hours 06/08/20 06/08/2006/08/21 04:25 04:25 04:25 WBC 7.2 RBC 4.39 Hgb 14.0 Hct 42.0 MCV 95.7 H MCH 31.9 MCHC 33.3 RDW 12.2 Plt Count 252 MPV 9.2 Neut % (Auto) 64.3 Lymph % (Auto) 22.7 [place] % (Auto) 8.5 Eos % (Auto) 3.6 Baso % (Auto) 0.6 Neut # (Auto) 4.64 Lymph # (Auto) 1.6 [place] # (Auto) 0.6 Eos # (Auto) 0.3 Baso # (Auto) 0.0 Nucleated RBC % (a uto) 0 Nucleated RBCs # 0.0 Sodium 138 Potassium 3.8 Chloride 104 Carbon Dioxide 25 Anion Gap 12.8 BUN 11 Creatinine 0.7 GFR Calculation 111.8 Glucose 99 Calculated Osmolal ity 285 Calcium 8.7 Total Bilirubin 0.5 AST 14 ALT 15 Alkaline Phosphata se 71 Creatine Kinase Troponin T Baselin e Troponin T 120 Min elizabeth Delta Troponin T Troponin T Hi Sens 6Hr Troponin T Hi Sens 6Hr Delta Total Protein 6.1 L Albumin 3.7 Globulin 2.4 Triglycerides 134 Cholesterol 108 LDL Cholesterol, C alc 50 HDL Cholesterol 31 L LDL/HDL Ratio 1.61 Cholesterol/HDL Ra latrice 3.48 06/07/20 06/07/20 06/07/20 20:02 15:43 13:38 WBC RBC Hgb Hct MCV MCH MCHC RDW Plt Count MPV Neut % (Auto) Lymph % (Auto) [place] % (Auto) Eos % (Auto) Baso % (Auto) Neut # (Auto) Lymph # (Auto) [place] # (Auto) Eos # (Auto) Baso # (Auto) Nucleated RBC % (a uto) Nucleated RBCs # Sodium Potassium Chloride Carbon Dioxide Anion Gap BUN Creatinine GFR Calculation Glucose Calculated Osmolal ity Calcium Total Bilirubin AST ALT Alkaline Phosphata se Creatine Kinase Troponin T Baselin e 11 Troponin T 120 Min elizabeth 10.22 Delta Troponin T -0.78 L Troponin T Hi Sens 6Hr 11.00 Troponin T Hi Sens 6Hr Delta 0 Total Protein Albumin Globulin Triglycerides Cholesterol LDL Cholesterol, C alc HDL Cholesterol LDL/HDL Ratio Cholesterol/HDL Ra latrice 06/07/20 06/07/20 13:38 13:38 WBC 6.6 RBC 4.85 Hgb 15.5 Hct 47.4 MCV 97.7 H MCH 32.0 MCHC 32.7 RDW 12.3 Plt Count 287 MPV 9.4 Neut % (Auto) 58.9 Lymph % (Auto) 27.6 [place] % (Auto) 8.7 Eos % (Auto) 3.7 Baso % (Auto) 0.8 Neut # (Auto) 3.86 Lymph # (Auto) 1.8 [place] # (Auto) 0.6 Eos # (Auto) 0.2 Baso # (Auto) 0.1 Nucleated RBC % (a uto) 0 Nucleated RBCs # 0.0 Sodium 138 Potassium 4.3 Chloride 102 Carbon Dioxide 26 Anion Gap 14.3 BUN 14 Creatinine 0.7 GFR Calculation 111.8 Glucose 93 Calculated Osmolal ity 286 Calcium 9.8 Total Bilirubin 0.4 AST 16 ALT 17 Alkaline Phosphata se 79 Creatine Kinase 106 Troponin T Baselin e Troponin T 120 Min elizabeth Delta Troponin T Troponin T Hi Sens 6Hr Troponin T Hi Sens 6Hr Delta Total Protein 6.8 Albumin 4.4 Globulin 2.4 Triglycerides Cholesterol LDL Cholesterol, C alc HDL Cholesterol LDL/HDL Ratio Cholesterol/HDL Ra latrice Vitals: Last Vital Signs Temp 98 F 06/08/20 04:00 Pulse 101 H 06/08/20 09:45 Resp 21 H 06/08/20 09:45 BP 134/81 06/08/20 09:45 Pulse Ox 97 (confirmed by t nurse) 06/08/20 09:30 Discharge Plan Discharge Patient Disposition: Home Condition: Stable Prescriptions: New acetaminophen 325 mg Tablet 650 mg PO Q6H PRN (Reason: Mild/Mod Pain Or Temp >/= 101) Qty: 0 RF: 0 aspirin 81 mg Tablet,Delayed Release (Dr/Ec) 81 mg PO DAILY Qty: 30 RF: 0 isosorbide mononitrate 30 mg tablet extended release 24 hr 30 mg PO DAILY Qty: 30 RF: 0 Continued simvastatin 20 mg tablet 20 mg PO DAILY@2099 RF: 0 lisinopril 5 mg tablet 5 mg PO DAILY@ RF: 0 metoprolol tartrate 25 mg tablet 25 mg PO BID@ RF: 0 Discontinued ibuprofen 600 mg Tablet 600 mg PO BEDTIME RF: 0 Excedrin Extra Strength 250-250-65 mg Tablet 1 tab PO DAILY@ RF: 0 Discharge Orders: Discharge Order (Routine); Ordered 06/08/20 Ordered By: Sal Marks Referrals: John Martin M.D [Physician] - 1 week Wiley Clifford MD [Primary Care Provider] - 2 weeks Discharge Diet: Cardiac Discharge Activity: Increase activity as tolerated Patient Instructions: Coronary Artery Disease (DC), Left Heart Catheterization (DC), Right Heart Catheterization (DC), Chronic Hypertension (DC) Activity Restrictions/Additional Instructions: Please follow-up with Dr. Martin and your primary care physician as instructed. Please return to emergency room if you develop any new chest pain, diaphoresis, shortness of breath, dizziness or lightheadedness, low blood pressure, or any other new complaints. Please monitor your blood pressure regularly and discuss with your primary care provider possible adjustments of your medications if needed. Discharge Attestations Time Spent in Discharge Care*: less than 30 min Quality Metrics Clinical Quality Measures During this hospital stay, did patient experience: AMI Clinical Trial Participant: No Contraindication to aspirin (AMI): Aspirin given Contraindication to statin: Statin prescribed Coding Level of Care Code Acute Chg FW DC note Diagnoses Coronary artery disease I25.10 Hyperlipidemia E78.5 HTN (hypertension) I10 Unstable angina I20.0
== END 2020-06-08 13:40 | disposition home or self-care (01) ==
LOC: ER 13:08 → CSU 06-08 02:39
PROVIDERS: Internal Medicine; Admitting Provider Internal Medicine; Emergency Provider Family Medicine; PCP Family Medicine; Visit Provider Internal Medicine
DX: I25.110 Atherosclerotic heart disease of native coronary artery with unstable angina pectoris (principal); E78.5 Hyperlipidemia, unspecified; I10 Essential (primary) hypertension; I25.2 Old myocardial infarction; Z79.82 Long term (current) use of aspirin
CPT/HCPCS: 36415; 71045; 80053; 80061; 82550; 84484; 85025; 93005; 93306; 93452; 96360; 96361; 99285; C1769; C1887; C1894; G0378; J1644; J2250; J3010; J3490; J7030; J7050; Q0163; Q9967

== ENCOUNTER → 2020-06-21 15:33 | Outpatient (BNVA) | payer MEDICARE, OTHER, SELFPAY | PROVIDERS: PCP Family Medicine; Visit Provider Nurse Practitioner Family | DX: I25.10 Atherosclerotic heart disease of native coronary artery without angina pectoris (principal); I10 Essential (primary) hypertension | CPT/HCPCS: 80048 ==

== ENCOUNTER 2020-07-19 14:20 | Outpatient (CLI) | payer MEDICARE, OTHER, SELFPAY ==
[2020-07-19 15:10] LABS: Basophils % 0.6 %; Eosinophils # 0.2 10^3/uL (0.0-0.8); Eosinophils % 3.3 %; Hematocrit 43.5 % (42.0-52.0); Hemoglobin 14.4 g/dL (11.7-16.6); Lymphocytes # 1.6 10^3/uL (0.8-4.8); Lymphocytes % 23.6 %; Mean Corpuscular HGB Conc 33.1 g/dL (30.0-36.0); Mean Corpuscular Hemoglobin 31.4 pg (28.0-34.0); Mean Platelet Volume 9.4 fL (7.4-10.4); Monocytes # 0.5 10^3/uL (0.2-0.9); Monocytes % 7.4 %; Neutrophils # 4.48 10^3/uL (1.8-7.7); Neutrophils % 64.8 %; Nucleated Red Blood Cells % 0 %; Platelet Count 278 10^3/cmm (130-400); Red Blood Count 4.58 10^6/uL (4.1-5.3); Red Cell Distribution Width 12.3 % (12.1-15.1); White Blood Count 6.9 10^3/uL (4.0-10.0)
[2020-07-19 15:31] LABS: Alanine Aminotransferase 17 U/L (0-41); Alkaline Phosphatase 80 IU/L (40-130); Aspartate Amino Transferase 16 U/L (0-40); Blood Urea Nitrogen 14 mg/dL (8-23); Calcium 8.6 mg/dL (8.5-10.5); Carbon Dioxide 24 mmol/L (22-29); Chloride 105 mmol/L (98-107); Globulin 2.2 g/dL (1.3-4.6); Glomerular Filtration Rate 83.4 mL/min (90-130); Glucose 118 mg/dL (65-115); Lactate Dehydrogenase 166 U/L (135-225); Osmolality Calculated 290 mOsm/kg (285-295); Sodium 139 mmol/L (136-145); Total Bilirubin 0.3 mg/dL (0.15-1.2); Total Protein 6.2 g/dL (6.6-8.7)
--- NOTE | 2020-07-20 07:41 | ONC FU_ITS ---
Dr. Pritchard Patient Follow-Up Note Patient: Oscar Marques Unit #: [id number]: 1950 Dicatated By: Earnest Pritchard M.D.Date of Visit:July 19, 2020 Onc Med Follow-up/Prog Note Chief Complaint: Lymphoma. 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 On 05/04/2017 he had presented to the emergency room after become aware of a lump in his upper right thigh/right groin area. Contrast-enhanced CT of the abdomen/pelvis showed right proximal anterior thigh and inguinal lymphadenopathy measuring up to 4.8 x 3.3 x 5.0 cm. Also noted was central mesenteric adenopathy/mass measuring 3.0 x 2.0 cm. A right iliac chain lymph node measured 9.7 mm. The right midabdomen showed a short segment of small bowel demonstrating wall thickening and enhancement with adjacent fat stranding and nodularity, suspicious for nonobstructing lesion. The liver and spleen appeared unremarkable. He was referred to Dr. Talbot. On 05/09/2017 he underwent right inguinal femoral lymph node biopsy. Pathology showed a monotypic B-cell with germinal center phenotype. The cells were positive for CD19, CD20, CD10, FMC 7, and CD23. There was surface kappa light chain restriction noted. The cells were negative for CD5. Overall, the tumor was felt to be comprised 90% of diffuse large B-cell lymphoma, germinal center subtype, and 10% grade 3A follicular lymphoma. Staging PET/CT on 05/18/2017 showed at least 2 hypermetabolic right inguinal lymph nodes consistent with residual lymphoma, the dominant lesion measuring 1.8 cm with SUV 8.0. A central mesenteric lymph node measured 2.7 cm with SUV 6.0, indicating probable lymphoma. There was subtle, questionable activity noted in a right axillary lymph node. This was felt to be possibly reactive, though lymphoma could not be excluded. An irregular 1 cm right upper lobe pulmonary nodule was FDG negative. Mediastinal lymph nodes appeared radiographically benign and without significant FDG uptake. There were no other areas of abnormal uptake described. He began treatment with R-CHOP chemotherapy, cycle 1 day 1 on 05/23/2017. His baseline echocardiogram showed normal left ventricular ejection fraction at 60%. He tolerated the treatment without any acute toxicity. He did develop some mild constipation, which subsequently resolved. He had only moderately severe neutropenia with a dominique ANC of 900. He recovered uneventfully. He is able to proceed with cycle 2 on 06/19/2017. On 06/26/2017 he presented with acute onset of swelling in the right arm. His venous Doppler showed occlusive thrombus in the right subclavian and internal jugular veins. This was presumably Port-A-Cath related. He began anticoagulation with apixaban. He was seen by Dr. Talbot. At that point the swelling was improving, we opted to try and salvage the port. However, on a follow-up fluoroscopy study, the Port-A-Cath tip had migrated, and it did have to be repositioned. Restaging PET/CT on 07/06/2017 showed only subcentimeter residual right inguinal lymph nodes and residual central mesenteric lesion measuring 1 cm, both FDG negative. The questionable right axillary lymph node also was noted to be subcentimeter and FDG negative. Overall, the findings were consistent with complete response to treatment. He was then continued with cycle 3 of R-CHOP on 07/11/2017, with cycle 4 on 07/31/2017, with cycle 5 on 08/21/2017, and with cycle 6 on 09/11/2017. Restaging PET/CT on 10/05/2017 showed no evidence for recurrent or residual malignancy, consistent with complete response. His other medical illnesses include hypertension, hyperlipidemia, and coronary artery disease. He suffered a very mild heart attack 12 years ago. He also has mild asthma, and he has degenerative arthritis. He is a nonsmoker. INTERIM HISTORY: His surveillance CT scans of the chest, abdomen, and pelvis on 07/11/2018 showed no evidence for recurrent lymphoma. There was no adenopathy noted within the chest, abdomen, or pelvis. A repeat PET/CT on 06/27/2019 showed no evidence for recurrent or residual malignancy. He continued on observation/expectant management. In May 2020 he had a sewed of significant chest pain. He ultimately was evaluated with coronary angiography. It showed total occlusion of the mid circumflex artery, but it was not able to be successfully revascularized. There was no other obstructive coronary disease noted. His left ventricular systolic function was normal with ejection fraction 50%. He is seen for a followup visit. He has been feeling pretty good generally. He says his energy still is not great, but he works and he still has normal activity. ECOG score is 0. His appetite is good. He has continued to gain weight. He does not have fever or night sweats. He has some shortness of breath with activity. Overall his breathing is not as good. He does not complain of cough. He has had no further chest pain. He has no GI/ complaints other than occasional upset stomach. He does have some osteoarthritis, which is unchanged. He does not complain of headache. He has occasional inner ear dizziness. He still has numbness in his feet, which does tend to affect his balance/equilibrium. Medications: Aspir-81 1 (81 mg) Tablet, enteric coated Oral daily, Calcium 1 (650 mg) Tablet Oral daily, Cholecalciferol 1 (5000 Units) Tablet Oral daily, Co Q10 1 (120 mg) Capsule Oral daily, Colace 1 (100 mg) Capsule Oral daily, Lisinopril 1 (5 mg) Tablet Oral daily, Metoprolol Tartrate 1 (25 mg) Tablet Oral b.i.d., Multivitamin Adult 1 Tablet Oral daily, Saw [place] 1 (1000 mg) Capsule Oral daily, Simvastatin 1 (20 mg) Tablet Oral daily Allergies: bee sting and wasp stings. Vital Signs: Performed on July 19, 2020 16:03 Height - 73.00 in Weight - 276 lbs (HIGH) BSA - 2.47 sq.m BMI - 36.41 (HIGH) Temperature - 98.4 F Pulse - 79 /min Respiration - 18 /min BP - 137/75 mm(hg) O2 Sat - 96 % Pain - 0 Fatigue - 3 Physical Examination: Constitutional - He looks good generally, Eyes - Sclerae nonicteric. Conjunctivae clear, ENMT - No lesions noted in the oral cavity, Hematologic/Lymphatic - No cervical, clavicular, or axillary adenopathy, Respiratory - Lungs are clear, Cardiovascular - Heart rhythm is regular. There is no murmur, gallop, or rub noted, Abdomen - Soft. Liver and spleen are not enlarged. There is no abdominal mass noted and there is no apparent ascites, Extremities - Slight edema, Neurologic - No focal neurologic deficits noted. Lab/Imaging: Test performed on July 19, 2020 14:35 LDH (Total) 166 U/L Sodium 139 mmol/L Potassium 4.0 mmol/L Chloride 105 mmol/L CO2 24 mmol/L Anion Gap 14.0 BUN 14 mg/dL Creatinine 0.9 mg/dL Cr Clearance (Est) 129.4600 mL/min eGFR 83.4 mL/min Glucose 118 mg/dL Osmolality - Calculated 290 mOsm/kg Calcium 8.6 mg/dL Protein, Total 6.2 g/dL Albumin 4.0 g/dL Globulin 2.2 g/dL Bilirubin, Total 0.3 mg/dL ALT (SGPT) 17 U/L AST (SGOT) 16 U/L Alkaline Phosphatase 80 IU/L WBC 6.9 10 3/uL RBC 4.58 10 6/uL HGB 14.4 g/dL HCT 43.5 % MCV 95.0 fL MCH 31.4 pg MCHC 33.1 g/dL RDW 12.3 % Platelet Count 278 10 3/cmm MPV 9.4 fL Neutrophils 4.48 10 3/uL Lymphocytes 1.6 10 3/uL Monocytes 0.5 10 3/uL Eosinophils 0.2 10 3/uL Basophils 0.0 10 3/uL Neutrophil % 64.8 % Lymphocyte % 23.6 % Monocyte % 7.4 % Eosinophil % 3.3 % Basophils % 0.6 % NRBC % 0 % Problem List: 1. Diffuse large B-cell lymphoma, germinal center subtype. By clinical evaluation, his disease was stage IIA. 2. Hypertension. 3. Hyperlipidemia. 4. Coronary artery disease with history of light heart attack 12 years ago. He has been managed medically. 5. Mild asthma. 6. Degenerative arthritis. 7. He had COVID-19 infection in 2020. Problems Addressed with this Encounter and Plan: Patient with diffuse large B-cell lymphoma, germinal center subtype. He underwent right inguinal femoral lymph node biopsy on 05/09/2017. By clinical evaluation, his disease was stage IIA. He underwent treatment with 6 cycles of R-CHOP chemotherapy, from 05/29/2017 to 09/11/2017. His treatment was complicated by a Port-A-Cath related thrombosis, requiring repositioning of the catheter tip and anticoagulation with apixaban. Other side effects included neutropenia, fatigue, and mild neuropathy. His restaging PET/CT on 10/05/2017 was consistent with complete response. During follow-up he has had some residual fatigue and neuropathy, but overall he has been doing well clinically with no evidence of recurrence of the lymphoma. He remains on observation/expectant management. He will be scheduled for surveillance CT scans of the chest, abdomen, and pelvis. Assuming those are negative, I will see him again in 6 months. Signed By: Earnest Pritchard M.D. <<Signature on File>>
== END 2020-07-19 14:21 | disposition home or self-care (01) ==
LOC: ONCMED 14:23
PROVIDERS: PCP Family Medicine; Visit Provider Internal Medicine Medical Oncology
DX: C83.30 Diffuse large B-cell lymphoma, unspecified site (principal); I10 Essential (primary) hypertension; E78.5 Hyperlipidemia, unspecified; I25.10 Atherosclerotic heart disease of native coronary artery without angina pectoris; J45.20 Mild intermittent asthma, uncomplicated; M19.90 Unspecified osteoarthritis, unspecified site; Z86.16 Personal history of COVID-19; Z79.899 Other long term (current) drug therapy
CPT/HCPCS: 36415; 80053; 83615; 85025; G0463

== ENCOUNTER 2020-07-26 11:21 | Outpatient (CLI) | payer MEDICARE, OTHER, SELFPAY ==
--- NOTE | 2020-07-26 11:32 | CT_ITS ---
WS: [id number] CT CHEST, ABDOMEN, AND PELVIS TECHNIQUE: Contrast-enhanced CT of the chest, abdomen, and pelvis with coronal and sagittal reformatt ed images. CLINICAL INFORMATION: LYMPHOMA COMPARISON: CT , PET/CT June 27, 2019, October 05, 2017 and . Additional PET/CT May. DLP: 2335.[address] scans at [facility] use at least one of these dose optimization techniques: automat ed exposure control; mA and/or kV adjustment per patient size (includes targeted exams where dose is matched to clinical indication); or iterative reconstruction. CT CHEST: Mild chronic emphysematous changes. No acute pulmonary infiltrates. No focal pneumonia or pleural flu id. No suspicious pulmonary parenchymal opacities. Coronary calcification. Minimal aortic calcificati on. No mediastinal or hilar lymphadenopathy. No axillary lymphadenopathy. Hypertrophic changes thoracic spine. Normal caliber thoracic aorta. Small esophageal hiatal hernia. CT ABDOMEN AND PELVIS: Diffuse fatty infiltration of the liver. Normal gallbladder. Small esophageal hiatal hernia. Portal v ein and splenic vein are normal. Tiny hepatic cyst undersurface right hepatic lobe unchanged. Normal spleen. Fatty atrophy of the pancreas. Adrenal glands are normal. Normal renal parenchymal enhancemen t. No hydronephrosis. Normal caliber abdominal aorta. Enlarged calcified prostate 4.7 x 6.1 cm. Diffuse bladder wall thickening likely due to bladder outle t obstruction. Normal sigmoid colon. No evidence of small or large bowel obstruction. Small inferior pole right renal cyst. No abdominal or retroperitoneal lymphadenopathy. No pelvic or i nguinal lymphadenopathy. No inguinal lymphadenopathy. Fat-containing right inguinal hernia. Slight an terolisthesis L5 on S1. CT/CT chest abd pel w con* IMPRESSION: 1. No adenopathy in the chest abdomen or pelvis. 2. No evidence of new or progressive disease. 3. Mild diffuse fatty infiltration of the liver. Normal spleen. 4. Small esophageal hiatal hernia. 5. Enlarged prostate with evidence of bladder outlet obstruction. Recommend co rrelation PSA. 6. Fat-containing right inguinal hernia unchanged.
== END 2020-07-26 11:22 | disposition home or self-care (01) ==
LOC: RAD 11:26
PROVIDERS: PCP Family Medicine; Visit Provider Internal Medicine Medical Oncology
DX: C83.38 Diffuse large B-cell lymphoma, lymph nodes of multiple sites (principal); K76.0 Fatty (change of) liver, not elsewhere classified; K44.9 Diaphragmatic hernia without obstruction or gangrene; N40.0 Benign prostatic hyperplasia without lower urinary tract symptoms; K40.90 Unilateral inguinal hernia, without obstruction or gangrene, not specified as recurrent
CPT/HCPCS: 71260; 74177; Q9967

== ENCOUNTER → 2020-11-11 08:33 | Outpatient (BNVA) | payer MEDICARE, OTHER, SELFPAY | PROVIDERS: PCP Family Medicine; Visit Provider Urology | DX: N20.1 Calculus of ureter; N40.1 Benign prostatic hyperplasia with lower urinary tract symptoms; Z12.5 Encounter for screening for malignant neoplasm of prostate | CPT/HCPCS: 81003; G0103 ==

== ENCOUNTER 2021-02-02 13:02 | Outpatient (CLI) | payer MEDICARE, OTHER, SELFPAY ==
[2021-02-02 13:55] LABS: Basophils # 0.1 10^3/uL (0.0-0.1); Basophils % 0.9 %; Eosinophils # 0.3 10^3/uL (0.0-0.8); Hematocrit 44.6 % (42.0-52.0); Hemoglobin 15.3 g/dL (11.7-16.6); Lymphocytes # 1.6 10^3/uL (0.8-4.8); Lymphocytes % 22.6 %; Mean Corpuscular HGB Conc 34.3 g/dL (30.0-36.0); Mean Corpuscular Hemoglobin 32.6 pg (28.0-34.0); Mean Corpuscular Volume 95.1 fl (80-94); Mean Platelet Volume 9.2 fL (7.4-10.4); Monocytes # 0.5 10^3/uL (0.2-0.9); Monocytes % 6.8 %; Neutrophils # 4.61 10^3/uL (1.8-7.7); Neutrophils % 65.4 %; Nucleated Red Blood Cells % 0 %; Platelet Count 295 10^3/cmm (130-400); Red Blood Count 4.69 10^6/uL (4.1-5.3); Red Cell Distribution Width 12.2 % (12.1-15.1)
[2021-02-02 14:06] LABS: Alanine Aminotransferase 17 U/L (0-41); Albumin Level 4.1 g/dL (3.5-5.2); Alkaline Phosphatase 81 IU/L (40-130); Anion Gap 19.4 (5-19); Aspartate Amino Transferase 16 U/L (0-40); Blood Urea Nitrogen 18 mg/dL (8-23); Carbon Dioxide 21 mmol/L (22-29); Chloride 103 mmol/L (98-107); Globulin 2.9 g/dL (1.3-4.6); Glomerular Filtration Rate 95.6 mL/min (90-130); Glucose 110 mg/dL (65-115); Lactate Dehydrogenase 172 U/L (135-225); Osmolality Calculated 291 mOsm/kg (285-295); Potassium 4.4 mmol/L (3.5-5.1); Sodium 139 mmol/L (136-145); Total Bilirubin 0.4 mg/dL (0.15-1.2)
--- NOTE | 2021-02-06 06:45 | ONC FU_ITS ---
Dr. Pritchard Patient Follow-Up Note Patient: Oscar Marques Unit #: [id number]: 1950 Dicatated By: Earnest Pritchard M.D.Date of Visit:Feb 02, 2021 Onc Med Follow-up/Prog Note Chief Complaint: Lymphoma. 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 On 05/04/2017 he had presented to the emergency room after become aware of a lump in his upper right thigh/right groin area. Contrast-enhanced CT of the abdomen/pelvis showed right proximal anterior thigh and inguinal lymphadenopathy measuring up to 4.8 x 3.3 x 5.0 cm. Also noted was central mesenteric adenopathy/mass measuring 3.0 x 2.0 cm. A right iliac chain lymph node measured 9.7 mm. The right midabdomen showed a short segment of small bowel demonstrating wall thickening and enhancement with adjacent fat stranding and nodularity, suspicious for nonobstructing lesion. The liver and spleen appeared unremarkable. He was referred to Dr. Talbot. On 05/09/2017 he underwent right inguinal femoral lymph node biopsy. Pathology showed a monotypic B-cell with germinal center phenotype. The cells were positive for CD19, CD20, CD10, FMC 7, and CD23. There was surface kappa light chain restriction noted. The cells were negative for CD5. Overall, the tumor was felt to be comprised 90% of diffuse large B-cell lymphoma, germinal center subtype, and 10% grade 3A follicular lymphoma. Staging PET/CT on 05/18/2017 showed at least 2 hypermetabolic right inguinal lymph nodes consistent with residual lymphoma, the dominant lesion measuring 1.8 cm with SUV 8.0. A central mesenteric lymph node measured 2.7 cm with SUV 6.0, indicating probable lymphoma. There was subtle, questionable activity noted in a right axillary lymph node. This was felt to be possibly reactive, though lymphoma could not be excluded. An irregular 1 cm right upper lobe pulmonary nodule was FDG negative. Mediastinal lymph nodes appeared radiographically benign and without significant FDG uptake. There were no other areas of abnormal uptake described. He began treatment with R-CHOP chemotherapy, cycle 1 day 1 on 05/23/2017. His baseline echocardiogram showed normal left ventricular ejection fraction at 60%. He tolerated the treatment without any acute toxicity. He did develop some mild constipation, which subsequently resolved. He had only moderately severe neutropenia with a dominique ANC of 900. He recovered uneventfully. He is able to proceed with cycle 2 on 06/19/2017. On 06/26/2017 he presented with acute onset of swelling in the right arm. His venous Doppler showed occlusive thrombus in the right subclavian and internal jugular veins. This was presumably Port-A-Cath related. He began anticoagulation with apixaban. He was seen by Dr. Talbot. At that point the swelling was improving, we opted to try and salvage the port. However, on a follow-up fluoroscopy study, the Port-A-Cath tip had migrated, and it did have to be repositioned. Restaging PET/CT on 07/06/2017 showed only subcentimeter residual right inguinal lymph nodes and residual central mesenteric lesion measuring 1 cm, both FDG negative. The questionable right axillary lymph node also was noted to be subcentimeter and FDG negative. Overall, the findings were consistent with complete response to treatment. He was then continued with cycle 3 of R-CHOP on 07/11/2017, with cycle 4 on 07/31/2017, with cycle 5 on 08/21/2017, and with cycle 6 on 09/11/2017. Restaging PET/CT on 10/05/2017 showed no evidence for recurrent or residual malignancy, consistent with complete response. His other medical illnesses include hypertension, hyperlipidemia, and coronary artery disease. He suffered a very mild heart attack 12 years ago. He also has mild asthma, and he has degenerative arthritis. He is a nonsmoker. INTERIM HISTORY: His surveillance CT scans of the chest, abdomen, and pelvis on 07/11/2018 showed no evidence for recurrent lymphoma. There was no adenopathy noted within the chest, abdomen, or pelvis. A repeat PET/CT on 06/27/2019 showed no evidence for recurrent or residual malignancy. In May 2020 he had an episode of significant chest pain. He ultimately was evaluated with coronary angiography. It showed total occlusion of the mid circumflex artery, but it was not able to be successfully revascularized. There was no other obstructive coronary disease noted. His left ventricular systolic function was normal with ejection fraction 50%. Surveillance CT scans on 07/26/2020 showed no adenopathy in the chest, abdomen, or pelvis. There was evidence of diffuse fatty infiltration of the liver. The prostate was noted to be enlarged with evidence of bladder outlet obstruction. He continued expectant management for the lymphoma. He is seen for a followup visit. He has been feeling pretty good generally, though he continues to have some fatigue. His ECOG score is 1. His appetite is good. He has no fever or night sweats. He has not had sore mouth or throat. He does not complain of cough, and he has not been having shortness of breath or chest pain. He has a little bit of acid reflux and he complains it is bowels tend to be a little slow. He has no complaints. He does have some joint pain, which is about the same. He does not complain of headache. 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 Medications: Aspir-81 1 (81 mg) Tablet, enteric coated Oral daily, Cholecalciferol 1 (5000 Units) Tablet Oral daily, Co Q10 1 (120 mg) Capsule Oral daily, Colace 1 (100 mg) Capsule Oral daily, Lisinopril 1 (5 mg) Tablet Oral daily, Metoprolol Tartrate 1 (25 mg) Tablet Oral b.i.d., Multivitamin Adult 1 Tablet Oral daily, Red Yeast Rice 1 (600 mg) Tablet Oral daily, Saw [place] 1 (1000 mg) Capsule Oral daily Allergies: bee sting and wasp stings. Vital Signs: Performed on Feb 02, 2021 15:16 Height - 73.00 in Weight - 273.6 lbs (LOW) BSA - 2.46 sq.m BMI - 36.10 (HIGH) Temperature - 97.7 F (LOW) Pulse - 83 /min Respiration - 20 /min BP - 128/78 mm(hg) O2 Sat - 97 % Pain - 0 Fatigue - 0 Physical Examination: Constitutional - He looks good generally, Eyes - Sclerae nonicteric. Conjunctivae clear, ENMT - No lesions noted in the oral cavity, Hematologic/Lymphatic - No cervical, clavicular, or axillary adenopathy, Respiratory - Lungs are clear, Cardiovascular - Heart rhythm is regular. There is no murmur, gallop, or rub noted, Abdomen - Soft. Liver and spleen are not enlarged. There is no abdominal mass noted and there is no apparent ascites, Extremities - No edema, Neurologic - No focal neurologic deficits noted. Lab/Imaging: Test performed on Feb 02, 2021 13:22 LDH (Total) 172 U/L Sodium 139 mmol/L Potassium 4.4 mmol/L Chloride 103 mmol/L CO2 21 mmol/L Anion Gap 19.4 BUN 18 mg/dL Creatinine 0.8 mg/dL Cr Clearance (Est) 145.6400 mL/min eGFR 95.6 mL/min Glucose 110 mg/dL Osmolality - Calculated 291 mOsm/kg Calcium 9.0 mg/dL Protein, Total 7.0 g/dL Albumin 4.1 g/dL Globulin 2.9 g/dL Bilirubin, Total 0.4 mg/dL ALT (SGPT) 17 U/L AST (SGOT) 16 U/L Alkaline Phosphatase 81 IU/L WBC 7.0 10 3/uL RBC 4.69 10 6/uL HGB 15.3 g/dL HCT 44.6 % MCV 95.1 fl MCH 32.6 pg MCHC 34.3 g/dL RDW 12.2 % Platelet Count 295 10 3/cmm MPV 9.2 fL Neutrophils 4.61 10 3/uL Lymphocytes 1.6 10 3/uL Monocytes 0.5 10 3/uL Eosinophils 0.3 10 3/uL Basophils 0.1 10 3/uL Neutrophil % 65.4 % Lymphocyte % 22.6 % Monocyte % 6.8 % Eosinophil % 4.0 % Basophils % 0.9 % NRBC % 0 % Problem List: 1. Diffuse large B-cell lymphoma, germinal center subtype. By clinical evaluation, his disease was stage IIA. 2. Hypertension. 3. Hyperlipidemia. 4. Coronary artery disease with history of light heart attack 12 years ago. He has been managed medically. 5. Mild asthma. 6. Degenerative arthritis. 7. He had COVID-19 infection in 2019. Problems Addressed with this Encounter and Plan: Patient with diffuse large B-cell lymphoma, germinal center subtype. He underwent right inguinal femoral lymph node biopsy on 05/09/2017. By clinical evaluation, his disease was stage IIA. He underwent treatment with 6 cycles of R-CHOP chemotherapy, from 05/29/2017 to 09/11/2017. His treatment was complicated by a Port-A-Cath related thrombosis, requiring repositioning of the catheter tip and anticoagulation with apixaban. Other side effects included neutropenia, fatigue, and mild neuropathy. His restaging PET/CT on 10/05/2017 was consistent with complete response. During follow-up he has had persistent fatigue and he has residual neuropathy, but overall he has been doing well clinically with no evidence of recurrence of the lymphoma. He continues expectant management. I will see him again in 6 months. Signed By: Earnest Pritchard M.D. <<Signature on File>>
== END 2021-02-02 13:03 | disposition home or self-care (01) ==
LOC: ONCMED 13:04
PROVIDERS: PCP Family Medicine; Visit Provider Internal Medicine Medical Oncology
DX: Z08 Encounter for follow-up examination after completed treatment for malignant neoplasm (principal); Z85.72 Personal history of non-Hodgkin lymphomas; I10 Essential (primary) hypertension; E78.5 Hyperlipidemia, unspecified; I25.10 Atherosclerotic heart disease of native coronary artery without angina pectoris; J45.20 Mild intermittent asthma, uncomplicated; M19.90 Unspecified osteoarthritis, unspecified site; Z86.16 Personal history of COVID-19; Z79.899 Other long term (current) drug therapy; Z92.21 Personal history of antineoplastic chemotherapy
CPT/HCPCS: 36415; 80053; 83615; 85025; 99214

== ENCOUNTER → 2021-06-12 16:22 | Outpatient (BNVA) | payer MEDICARE, OTHER, SELFPAY | PROVIDERS: PCP Family Medicine; Visit Provider Urology | DX: N40.1 Benign prostatic hyperplasia with lower urinary tract symptoms (principal) | CPT/HCPCS: 81003 ==

== ENCOUNTER 2021-09-13 10:24 | Outpatient (CLI) | payer MEDICARE, OTHER, SELFPAY ==
[2021-09-13 11:26] LABS: Basophils % 0.7 %; Eosinophils # 0.2 10^3/uL (0.0-0.8); Eosinophils % 3.3 %; Hematocrit 41.6 % (42.0-52.0); Hemoglobin 14.5 g/dL (11.7-16.6); Lymphocytes # 1.7 10^3/uL (0.8-4.8); Lymphocytes % 27.2 %; Mean Corpuscular HGB Conc 34.9 g/dL (30.0-36.0); Mean Corpuscular Hemoglobin 32.9 pg (28.0-34.0); Mean Corpuscular Volume 94.3 fl (80-94); Mean Platelet Volume 9.5 fL (7.4-10.4); Monocytes # 0.5 10^3/uL (0.2-0.9); Monocytes % 7.3 %; Neutrophils # 3.78 10^3/uL (1.8-7.7); Neutrophils % 61.3 %; Nucleated Red Blood Cells % 0 %; Platelet Count 281 10^3/cmm (130-400); Red Blood Count 4.41 10^6/uL (4.1-5.3); Red Cell Distribution Width 12.5 % (12.1-15.1); White Blood Count 6.2 10^3/uL (4.0-10.0)
[2021-09-13 11:43] LABS: Albumin Level 4.3 g/dL (3.5-5.2); Chloride 104 mmol/L (98-107); Potassium 4.2 mmol/L (3.5-5.1); Sodium 139 mmol/L (136-145)
[2021-09-13 12:05] LABS: Alanine Aminotransferase 16 U/L (0-41); Alkaline Phosphatase 84 IU/L (40-130); Anion Gap 15.2 (5-19); Aspartate Amino Transferase 19 U/L (0-40); Blood Urea Nitrogen 16 mg/dL (8-23); Calcium 9.1 mg/dL (8.5-10.5); Carbon Dioxide 24 mmol/L (22-29); Globulin 2.5 g/dL (1.3-4.6); Glucose 117 mg/dL (65-115); Lactate Dehydrogenase 158 U/L (135-225); Osmolality Calculated 290 mOsm/kg (285-295); Total Bilirubin 0.6 mg/dL (0.15-1.2); Total Protein 6.8 g/dL (6.6-8.7)
== END 2021-09-13 10:25 | disposition home or self-care (01) ==
PROVIDERS: PCP Family Medicine; Visit Provider Internal Medicine Medical Oncology
DX: C83.38 Diffuse large B-cell lymphoma, lymph nodes of multiple sites (principal)
CPT/HCPCS: 80053; 83615; 85025

== ENCOUNTER 2021-10-06 09:20 | Oncology outpatient (recurring) (ONCR) | payer MEDICARE, OTHER, SELFPAY | END 2021-10-06 23:59 | disposition home or self-care (01) | PROVIDERS: PCP Family Medicine; Visit Provider Nurse Practitioner Family | DX: C83.38 Diffuse large B-cell lymphoma, lymph nodes of multiple sites (principal); G62.0 Drug-induced polyneuropathy; T45.1X5A Adverse effect of antineoplastic and immunosuppressive drugs, initial encounter; Z79.899 Other long term (current) drug therapy; Z79.01 Long term (current) use of anticoagulants | CPT/HCPCS: 99214 ==

== ENCOUNTER → 2022-03-29 13:03 | Outpatient (BNVA) | payer MEDICARE, OTHER, SELFPAY | PROVIDERS: PCP Family Medicine; Visit Provider Internal Medicine | DX: I25.119 Atherosclerotic heart disease of native coronary artery with unspecified angina pectoris (principal); I10 Essential (primary) hypertension | CPT/HCPCS: 99214 ==

== ENCOUNTER → 2022-07-26 10:38 | Outpatient (BNVA) | payer MEDICARE, OTHER, SELFPAY | PROVIDERS: PCP Family Medicine; Visit Provider Nurse Practitioner Family | DX: L57.8 Other skin changes due to chronic exposure to nonionizing radiation (principal); L24.4 Irritant contact dermatitis due to drugs in contact with skin; Z85.828 Personal history of other malignant neoplasm of skin; L81.4 Other melanin hyperpigmentation; D22.5 Melanocytic nevi of trunk; Z71.89 Other specified counseling; L85.3 Xerosis cutis | CPT/HCPCS: 99214 ==

== ENCOUNTER 2022-08-22 06:21 | Observation (INO) | payer MEDICARE, OTHER, SELFPAY ==
[2022-08-22] VITALS (13 sets, daily range): BP systolic 115–158; BP diastolic 75–109; PULSE 58–88; RESP 14–22; TEMP 36.9–37.2; O2SAT 94–97; BMI 34.7
--- NOTE | 2022-08-22 06:26 | ECG_ITS ---
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 Measurements Intervals [place] Rate: 70 P: 50 ND: 185 QRS: -24 QRSD: 129 T: 34 QT: 392 QTc: 423 Interpretive Statements SINUS RHYTHM BORDERLINE LEFT AXIS DEVIATION [QRS AXIS < -20] RIGHT BUNDLE BRANCH BLOCK [120+ ms QRS DURATION, UPRIGHT V1, 40+ ms S IN I/aVL/V4/V5/V6] Compared to ECG 06/07/2020 15:13:53 Sinus arrhythmia no longer present Electronically Signed On 08-22-2022 12:29:21 CDT by John Martin M.D. [id number]
--- NOTE | 2022-08-22 06:35 | XRR_ITS ---
PROCEDURE INFORMATION: Exam: XR Chest Exam date and time: 08/22/2022 6:39 AM Age: 72 years old Clinical indication: Pain; Chest pressure; Additional info: Chest pain TECHNIQUE: Imaging protocol: Radiologic exam of the chest. Views: 1 view. COMPARISON: CT chest abdpel w/*[id number] 07/26/2020 1:17 PM FINDINGS: Lungs: Lungs are well aerated without a focal area of consolidation. Pleural spaces: Unremarkable. No pleural effusion. No pneumothorax. Heart/Mediastinum: The cardiac silhouette appears enlarged, some of which is magnification related to the AP projection. Bones/joints: Unremarkable. XR/XR chest 1V portable [id number] IMPRESSION: Lungs are well aerated without a focal area of consolidation.
--- NOTE | 2022-08-22 06:36 | ED_ITS ---
HPI - Chest Pain General: Chief Complaint: ER Hold Stated Complaint: chest pain Time Seen by Provider: 08/22/22 06:32 Source: patient History of Present Illness: 72 yo male who presents to the ER with complaints of chest pain that was present on awakening. Pt took nitro and had relief of chest pain from 5-6/10 to 1-2. Pt has known history of CAD with cath in 06/05 with finding of chronic total occlusion of mid circ that was not ammenable to intervention. Pt reports a episode of excessive dyspnea 1 wk ago with no chest pain. Pt denies chest pain at that time. Hx of HTN and hyperlipidemia. MD complaint: chest pain Pertinent past history: coronary artery disease Onset (ago): hour(s) Timing of current episode: episodic Onset: during rest Pain location: left chest Relieving factors: nothing Exacerbating factors: nothing Associated symptoms: Reports dyspnea; Deny abdominal pain, diaphoresis, fever(s), leg edema, nausea, palpitations, sense of impending doom, syncope or vomiting Review of Systems Const: Denies: fever(s), chills, night sweats or diaphoresis ENMT: Denies: throat pain, ear or mastoid pain, nasal discharge or nasal congestion Card: Reports: chest pain; Denies: palpitations, irregular heart rhythm, edema, swelling of feet/ankles, lightheadedness or syncope Resp: Reports: dyspnea; Denies: productive cough, non-productive cough or wheezing GI: Denies: abdominal pain, nausea or vomiting : Denies: flank pain, dysuria, urinary frequency or urinary urgency Musc: Denies: neck pain Skin/Breast: Denies: rash or pruritus PFSH ED PFSH: Medical History Asthma BPH loc w urin obs/LUTS Coronary artery disease Diverticulitis Enlarged prostate History of nonmelanoma skin cancer HTN (hypertension) Hyperlipidemia Lymphoma Osteoarthritis Port-A-Cath in place 05/23/2017 - right side Surgical History History of colonoscopy 2009 History of ventral hernia repair x2 Hx of bilateral inguinal hernia repair Hx of umbilical hernia repair Family History Father , AT AGE 65 CAD (coronary artery disease) Mother , AT AGE 86 Lung disease Hypertension Brother Cancer PROSTATE Denies family history of Diabetes Clotting disorder Dementia Hyperlipidemia Psychiatric illness Chronic kidney disease (CKD) Suicide Anesthesia complication Bleeding disorder Stroke Social History Smoking and tobacco status: never smoked Alcohol intake: never Marital status: Current occupational status: retired Physical Exam Const: GENERAL APPEARANCE: cooperative and comfortable ORIENTATION/CONSCIOUSNESS: Yes awake, Yes oriented to person, Yes oriented to place and Yes oriented to time HENMT: COMMON NORMALS: normocephalic, atraumatic and hearing grossly normal bilaterally HEAD & SCALP: normocephalic and atraumatic Resp: COMMON NORMALS: normal respiratory effort, No retractions, No use of accessory muscles and clear to auscultation bilaterally AUSCULTATION: clear to auscultation bilaterally Cardio: COMMON NORMALS: regular rate, regular rhythm and No murmurs present (Cardio) RATE: regular rate RHYTHM: regular rhythm GI: COMMON NORMALS: Soft to palpation and No hepatosplenomegaly present AUSCULTATION: Yes normoactive bowel sounds PALPATION: Yes Soft to palpation, No Tenderness to palpation present (GI), No Guarding due to palpation present (GI) and Yes No hepatosplenomegaly present Extremity: COMMON NORMALS: normal to inspection, capillary refill normal, no clubbing, cyanosis or edema, no calf tenderness and no pedal edema Neuro: SENSORIUM/ORIENTATION: Yes oriented to person, Yes oriented to place and Yes oriented to time Skin: COMMON NORMALS: no rashes or lesions noted GENERAL SKIN EXAM: no rashes or lesions noted Course Vital Signs: Vital signs: Vital Signs Temperature 98.9 F 08/22/22 06:27 Pulse Rate 81 08/22/22 12:57 Respiratory Rate 20 H 08/22/22 12:57 Blood Pressure 142/86 08/22/22 12:57 Pulse Oximetry 96 08/22/22 12:57 Oxygen Delivery Me thod Room Air 08/22/22 12:57 MDM - Chest Pain Medical Decision Making Positive delta troponin and 2-hour. Given his known history of coronary disease and findings on his angiogram from 2 years ago. We will heparinize the patient he is pain-free now with a topical nitro discussed Dr. Martin and with hospitalist will admit for further evaluation. Medical Records I reviewed the patient's medical records. Lab Data I reviewed the patient's lab results. 08/22/22 06:31 08/22/22 07:18 Radiology Impressions Chest X-Ray 08/22/22 06:35 IMPRESSION: Lungs are well aerated without a focal area of consolidation. Laboratory Results WBC 8.5 10^3/uL (4.0-10.0) 08/22/22 06:31 RBC 4.54 10^6/uL (4.1-5.3) 08/22/22 06:31 Hgb 14.5 g/dL (11.7-16.6) 08/22/22 06:31 Hct 43.5 % (42.0-52.0) 08/22/22 06:31 MCV 95.8 fl (80-94) H 08/22/22 06:31 MCH 31.9 pg (28.0-34.0) 08/22/22 06:31 MCHC 33.3 g/dL (30.0-36.0) 08/22/22 06:31 RDW 12.8 % (12.1-15.1) 08/22/22 06:31 Plt Count 238 10^3/cmm (130-400) 08/22/22 06:31 MPV 9.1 fL (7.4-10.4) 08/22/22 06:31 Neut % (Auto) 58.6 % 08/22/22 06:31 Lymph % (Auto) 27.6 % 08/22/22 06:31 [place] % (Auto) 7.5 % 08/22/22 06:31 Eos % (Auto) 5.1 % 08/22/22 06:31 Baso % (Auto) 0.8 % 08/22/22 06:31 Neut # (Auto) 4.97 10^3/uL (1.8-7.7) 08/22/22 06:31 Lymph # (Auto) 2.3 10^3/uL (0.8-4.8) 08/22/22 06:31 [place] # (Auto) 0.6 10^3/uL (0.2-0.9) 08/22/22 06:31 Eos # (Auto) 0.4 10^3/uL (0.0-0.8) 08/22/22 06:31 Baso # (Auto) 0.1 10^3/uL (0.0-0.1) 08/22/22 06:31 Nucleated RBC % (auto) 0 % 08/22/22 06:31 Nucleated RBCs # 0.0 /100WBC 08/22/22 06:31 PT 13.50 SECONDS (12.1-14.9) 08/22/22 06:31 INR 1.00 (0.8-1.2) 08/22/22 06:31 APTT 31.5 SECONDS (23.9-36.7) 08/22/22 06:31 Sodium 138 mmol/L (136-145) 08/22/22 07:18 Potassium 4.2 mmol/L (3.5-5.1) 08/22/22 07:18 Chloride 103 mmol/L (98-107) 08/22/22 07:18 Carbon Dioxide 26 mmol/L (22-29) 08/22/22 07:18 Anion Gap 13.2 (5-19) 08/22/22 07:18 BUN 11 mg/dL (8-23) 08/22/22 07:18 Creatinine 0.9 mg/dL (0.7-1.2) 08/22/22 07:18 GFR Calculation Not Reportable 08/22/22 07:18 Glucose 96 mg/dL (65-115) 08/22/22 07:18 Calculated Osmolality 285 mOsm/kg (285-295) 08/22/22 07:18 Calcium 9.2 mg/dL (8.5-10.5) 08/22/22 07:18 Total Bilirubin 0.3 mg/dL (0.15-1.2) 08/22/22 07:18 AST 18 U/L (0-40) 08/22/22 07:18 ALT 16 U/L (0-41) 08/22/22 07:18 Alkaline Phosphatase 81 U/L (40-130) 08/22/22 07:18 Troponin T Baseline 6 ng/L (0-15) 08/22/22 06:31 Troponin T 120 Minute 16.01 ng/L (0-15) H 08/22/22 08:52 Delta Troponin T 10.01 ABS# (0-10) H* 08/22/22 08:52 Total Protein 6.4 g/dL (6.6-8.7) L 08/22/22 07:18 Albumin 3.9 g/dL (3.5-5.2) 08/22/22 07:18 Globulin 2.5 g/dL (1.3-4.6) 08/22/22 07:18 Urine Color Yellow (Yellow) 08/22/22 06:55 Urine Appearance Clear (CLEAR) 08/22/22 06:55 Urine pH 5 (5-7) 08/22/22 06:55 Ur Specific [place] 1.015 (1.005-1.030) 08/22/22 06:55 Urine Protein Neg (Negative) 08/22/22 06:55 Urine Glucose (UA) Norm (Normal) 08/22/22 06:55 Urine Ketones Negative (Negative) 08/22/22 06:55 Urine Blood Neg (Negative) 08/22/22 06:55 Urine Nitrate Negative (Negative) 08/22/22 06:55 Urine Bilirubin Neg (Negative) 08/22/22 06:55 Urine Urobilinogen Neg mg/dL (Negative) 08/22/22 06:55 Ur Leukocyte Esterase Negative (Negative) 08/22/22 06:55 Discharge Plan Discharge Patient Disposition: Admitted As Inpatient Admit Provider: Nader uBsch Clinical Impression: Unstable angina, HTN (hypertension), Coronary artery disease, Non-ST elevation VT (NSTEMI) Condition: Stable Coding Level of Care Code ED Assistant Financial Accountant for Yolette Glaser
[2022-08-22] MEDS: aspirin 81 mg Chew Tablet 324 MG PO (06:38)
[2022-08-22 06:48] LABS: Basophils # 0.1 10^3/uL (0.0-0.1); Basophils % 0.8 %; Eosinophils # 0.4 10^3/uL (0.0-0.8); Eosinophils % 5.1 %; Hematocrit 43.5 % (42.0-52.0); Hemoglobin 14.5 g/dL (11.7-16.6); Lymphocytes # 2.3 10^3/uL (0.8-4.8); Lymphocytes % 27.6 %; Mean Corpuscular HGB Conc 33.3 g/dL (30.0-36.0); Mean Corpuscular Hemoglobin 31.9 pg (28.0-34.0); Mean Corpuscular Volume 95.8 fl (80-94); Mean Platelet Volume 9.1 fL (7.4-10.4); Monocytes # 0.6 10^3/uL (0.2-0.9); Monocytes % 7.5 %; Neutrophils # 4.97 10^3/uL (1.8-7.7); Neutrophils % 58.6 %; Nucleated Red Blood Cells % 0 %; Platelet Count 238 10^3/cmm (130-400); Red Blood Count 4.54 10^6/uL (4.1-5.3); Red Cell Distribution Width 12.8 % (12.1-15.1); White Blood Count 8.5 10^3/uL (4.0-10.0)
[2022-08-22 07:02] LABS: Add Urine Microscopic? NO; Charge for UA Resulting for Rev
[2022-08-22 07:05] LABS: Troponin(5th) Baseline 6 ng/L (0-15)
[2022-08-22 07:13] LABS: Bilirubin Urine Neg (Negative); Blood Urine Neg (Negative); Glucose Urine UA Norm (Normal); Ketones Urine Negative (Negative); Leukocyte Esterase Urine Negative (Negative); Nitrate Urine Negative (Negative); Protein Urine Neg (Negative); Specific Gravity, Urine 1.015 (1.005-1.030); Urine Appearance Clear (CLEAR); Urine Color Yellow (Yellow); Urobilinogen Urine Neg (Negative); pH Urine 5 (5-7)
[2022-08-22] MEDS: nitroglycerin 1 gm/inch oint Pkt 1 INCH TOPICAL (07:19)
[2022-08-22 07:41] LABS: Alanine Aminotransferase 16 U/L (0-41); Albumin Level 3.9 g/dL (3.5-5.2); Alkaline Phosphatase 81 U/L (40-130); Anion Gap 13.2 (5-19); Aspartate Amino Transferase 18 U/L (0-40); Blood Urea Nitrogen 11 mg/dL (8-23); Calcium 9.2 mg/dL (8.5-10.5); Carbon Dioxide 26 mmol/L (22-29); Chloride 103 mmol/L (98-107); Globulin 2.5 g/dL (1.3-4.6); Glucose 96 mg/dL (65-115); Osmolality Calculated 285 mOsm/kg (285-295); Potassium 4.2 mmol/L (3.5-5.1); Sodium 138 mmol/L (136-145); Total Bilirubin 0.3 mg/dL (0.15-1.2); Total Protein 6.4 g/dL (6.6-8.7)
--- NOTE | 2022-08-22 08:36 | ECG_ITS ---
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 Measurements Intervals [place] Rate: 66 P: 60 [place]: 194 QRS: -22 QRSD: 121 T: 5 QT: 424 QTc: 447 Interpretive Statements SINUS RHYTHM BORDERLINE LEFT AXIS DEVIATION [QRS AXIS < -20] RIGHT BUNDLE BRANCH BLOCK [120+ ms QRS DURATION, UPRIGHT V1, 40+ ms S IN I/aVL/V4/V5/V6] Compared to ECG 08/22/2022 06:26:43 No significant changes Electronically Signed On 08-22-2022 12:30:54 CDT by John Martin M.D. [id number]
[2022-08-22 09:19] LABS: Troponin 5 2HR 16.01 ng/L (0-15)
[2022-08-22 09:21] LABS: Troponin 5 2HR Delta 10.01 ABS# (0-10)
[2022-08-22] MEDS: heparin 5,000 unit/mL INJ 1 mL IV (10:21)
[2022-08-22 10:30] LABS: Partial Thromboplastin Time 31.5 SECONDS (23.9-36.7)
[2022-08-22] MEDS: heparin drip 25,000 UNIT/500 ML PREMIX 34.29 UNIT IV (10:30)
[2022-08-22 12:30] LABS: Troponin 5 6HR 11.69 ng/L (0-15)
--- NOTE | 2022-08-22 12:36 | ECG_ITS ---
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 Measurements Intervals [place] Rate: 67 P: 50 CO: 189 QRS: -33 QRSD: 124 T: 12 QT: 419 QTc: 443 Interpretive Statements SINUS RHYTHM WITH SINUS ARRHYTHMIA LEFT AXIS DEVIATION [QRS AXIS < -30] RIGHT BUNDLE BRANCH BLOCK [120+ ms QRS DURATION, UPRIGHT V1, 40+ ms S IN I/aVL/V4/V5/V6] Compared to ECG 08/22/2022 08:42:47 No significant changes Electronically Signed On 08-22-2022 18:20:37 CDT by John Martin M.D. [id number]
[2022-08-22 12:51] LABS: Troponin 5 6HR Delta 5.69 ng/L (0-12)
--- NOTE | 2022-08-22 13:01 | USCV_ITS ---
Oscar Marques Age: 72 Gender: M : 1950 Exam Date: 08/22/2022 15:12 Ordering Phys: Nader Busch MD Technologist: MACHO Exam Location: [facility] Indication: CAD, CHEST PAIN, ELEVATED TROP BP: 142 / 86 HR: 74 Rhythm: Sinus Technical Quality: Adequate MEASUREMENTS (Male / Female) Normal Values 2D ECHO LVOT Diameter 2.0 cm LV Ejection Fraction MOD 2C 64.0 % LV Ejection Fraction 2C AL 64.4 % LA Diameter 3.8 cm LA Width 3.7 cm LA Height 4.7 cm RA Width 3.5 cm RA Height 4.1 cm Aorta at Sinotubular Diameter 3.1 cm M-MODE Aortic Annulus Diameter 3.4 cm LA Ao Ratio MM 1.2 MV E Point Septal Separation 0.9 cm DOPPLER AV Peak Velocity 124.0 cm/s LVOT Peak Velocity 80.0 cm/s AV Area Cont Eq vti 1.9 cm squared AV Area Cont Eq pk 2.0 cm squared MV Peak Velocity 87.0 cm/s MV Area PHT 3.7 cm squared Mitral E to A Ratio 0.8 MV E' Velocity 31.0 cm/s Mitral E to MV E' Ratio 6.3 Mitral E to LV E' Lateral Ratio 7.4 Mitral E to LV E' Septal Ratio 5.5 TR Peak Velocity 153.4 cm/s TR Peak Gradient 9.4 mmHg TR Mean Velocity 128.3 cm/s TR Mean Gradient 6.8 mmHg TR Velocity Time Integral 35.8 cm TV Peak E Velocity 46.0 cm/s Right Atrial Pressure 8.0 mmHg Pulmonary Artery Systolic Pressu 17.4 mmHg PV Peak Velocity 103.0 cm/s RV Acceleration Time 0.1 s RV Ejection Time 0.4 s RV AcT/ET 0.2 FINDINGS Left Ventricle Left ventricle is normal in size. LV systolic function is normal with EF 55 to 60%. No regional wall motion abnormalities are seen. Grade 1 diastolic dysfunction Right Ventricle Normal in size and function Right Atrium Normal in size Left Atrium Normal in size Mitral Valve Structurally normal mitral valve. Trace mitral regurgitation. Aortic Valve Structurally normal aortic valve. No significant stenosis or regurgitation. Tricuspid Valve Mild tricuspid regurgitation. Insufficient TR jet to calculate RVSP Pulmonic Valve Not well visualized Pericardium Normal Aorta Normal in size IVC Appears to be normal CONCLUSIONS LV systolic function is normal with EF of 55 to 60%. Grade 1 diastolic dysfunction. Trace mitral regurgitation. Mild tricuspid regurgitation. Compared to prior echocardiogram from 2020, no significant changes are seen John Martin MD (Electronically Signed) Final Date: 23 August 2022 07:15 S
--- NOTE | 2022-08-22 13:05 | PM.HP ---
Providers/Chief Complaint Admitting Physician: Nader Busch Primary Care Provider: Wiley Clifford MD Chief Complaint: chest pain History of Present Illness Oscar Marques is a 72 year old male Pleasant 72-year-old gentleman was admitted for assessment management after episode of chest pain which woke him up at 4 AM this morning. On and off he has been having some chest discomfort last several days and noticed has been getting more short of breath with exertion. Denies lower extremity edema. No orthopnea. Chest pain did not improve after he took antacids at home. Symptoms did show improvement with nitro. In ER troponin is 6 at baseline, at 2 hours up to 16 with positive delta of 10. EKG without acute ischemic changes. He is currently free of chest pain. 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 Review of Systems Const: Denies: fever(s), chills, body aches or malaise Eyes: Denies: change in vision, eye discomfort or eye redness ENMT: Denies: throat pain, oral sores or ear or mastoid pain Card: Reports: chest pain and dyspnea on exertion; Denies: edema or pre-syncope Resp: Denies: dyspnea, productive cough, change in phlegm color or hemoptysis GI: Denies: abdominal pain, nausea, vomiting, diarrhea, constipation, hematochezia or melena : Denies: flank pain, difficulty urinating, urinary frequency or hematuria Musc: Denies: back pain, joint swelling or joint redness Skin/Breast: Denies: rash or new lesions Neuro: Denies: headache(s), numbness in extremities, weakness in extremities, dizziness, confusion or seizure-like activity Endo: Denies: polyuria or polydipsia Joel/Lymph: Denies: easy bleeding or tender lymph nodes All/Imm: Denies: urticaria or tongue swelling Medications/Allergies Home Medications Medication Instructions Recorded Confirmed Last Taken Type metoprolol tartrate 25 mg tablet 25 mg PO BID@06/07/20 08/22/22 08/22/22 05:30 History simvastatin 20 mg tablet 20 mg PO DAILY@06/07/20 08/22/22 08/21/22 History rerghjw-dpolttazhqrnr-ghemsscv 250 1 tab PO DAILY@06/21/20 08/22/22 08/21/22 History mg-250 mg-65 mg tablet (Excedrin Extra Strength) coenzyme Q10 75 mg capsule (Ultra 75 mg PO BEDTIME 11/11/20 08/22/22 08/21/22 History CoQ10) saw palm 160 mg-vit E 100 1 tab PO DAILY@08 11/11/20 08/22/22 08/21/22 History unit-selen 100 odi-jlqs-pgvhih-pygeum tablet (Prostate Health) cholecalciferol (vitamin D3) 125 5,000 unit PO BEDTIME 08/22/22 08/22/22 08/21/22 History mcg (5,000 unit) tablet (Vitamin D3) docusate sodium 100 mg capsule 100 mg PO BEDTIME 08/22/22 08/22/22 08/21/22 History (Colace) inulin 2 gram chewable tablet 4 g PO BEDTIME 08/22/22 08/22/22 08/21/22 History (Fiber Gummies) lisinopril 2.5 mg tablet 2.5 mg PO DAILY@08/22/22 08/22/22 08/22/22 05:30 History multivitamin with minerals-folic 2 tab PO DAILY@08/22/22 08/22/22 08/21/22 History acid 200 mcg chewable tablet (Adult Multivitamin Gummies) tamsulosin 0.4 mg capsule 0.4 mg PO DAILY@08/22/22 08/22/22 08/21/22 History Allergies Allergy/AdvReac Type Severity Reaction Status Date / Time Bee and Wasps Allergy shock Uncoded 03/29/22 14:33 PFSH Acute PFSH: Medical History Asthma BPH loc w urin obs/LUTS Coronary artery disease Diverticulitis Enlarged prostate History of nonmelanoma skin cancer HTN (hypertension) Hyperlipidemia Lymphoma Osteoarthritis Port-A-Cath in place 05/23/2017 - right side Surgical History History of colonoscopy 2009 History of ventral hernia repair x2 Hx of bilateral inguinal hernia repair Hx of umbilical hernia repair Family History Father , AT AGE 65 CAD (coronary artery disease) Mother , AT AGE 86 Lung disease Hypertension Brother Cancer PROSTATE Denies family history of Diabetes Clotting disorder Dementia Hyperlipidemia Psychiatric illness Chronic kidney disease (CKD) Suicide Anesthesia complication Bleeding disorder Stroke Social History Smoking and tobacco status: never smoked Alcohol intake: never Marital status: Current occupational status: retired Vitals/I&O/Wt Last Vital Signs Temp 98.9 F 08/22/22 06:27 Pulse 81 08/22/22 12:57 Resp 20 H 08/22/22 12:57 BP 142/86 08/22/22 12:57 Pulse Ox 96 08/22/22 12:57 O2 Del Method Room Air 08/22/22 12:57 Weight last 48 hrs Weight 122.47 kg Physical Exam Const: COMMON NORMALS: patient oriented x3 and alert GENERAL APPEARANCE: cooperative ORIENTATION/CONSCIOUSNESS: Yes awake HENMT: COMMON NORMALS: oropharynx normal Neck/C-Spine: COMMON NORMALS: no JVD Resp: COMMON NORMALS: normal respiratory effort and clear to auscultation bilaterally AUSCULTATION: clear to auscultation bilaterally Cardio: COMMON NORMALS: no JVD, regular rhythm, S1 normal heart sound present, S2 normal heart sound present and No murmurs present (Cardio) RHYTHM: regular rhythm HEART SOUNDS: S1 normal heart sound present and S2 normal heart sound present GI: COMMON NORMALS: Normal to inspection, nondistended, normoactive bowel sounds present, Soft to palpation and non-tender PALPATION: Yes Soft to palpation Extremity: COMMON NORMALS: no joint enlargement and no pedal edema Neuro: COMMON NORMALS: patient oriented x3 and moves all extremities SENSORIUM/ORIENTATION: Yes alert Skin: COMMON NORMALS: no rashes or lesions noted GENERAL SKIN EXAM: no rashes or lesions noted Data 08/22/22 06:31 08/22/22 07:18 A&P Assessment and plan (1) Non-ST elevation AL (NSTEMI): Possible NSTEMI, episode of chest pain woke him up this morning, with some response to nitro's. Troponin with mild elevation at 2 hours, but positive delta over 10. 6-hour troponin noted normal with some decrease. Chest x-ray unremarkable. Will check D-dimer as discussed with him. Chest pain is not pleuritic. Denies any cough. He has received nitro and aspirin. Continue nitro as needed, currently he is chest pain-free. He was started on heparin drip, for now continue. Pending cardiology evaluation. Requested TTE. Risk of severe and/or life-threatening complications, including arrhythmia, monitor on telemetry. Discussed with ER physician. ER documentation reviewed. Plan History of childhood asthma BPH: Continue Flomax HTN: Continue metoprolol, lisinopril HLD OA Lymphoma Port-A-Cath: On my review of x-ray I do not see Port-A-Cath so this must of been removed. Attestations Medical Necessity Statement*: Place in observation for additional assessment of possible NSTEMI after episode of chest pain, abnormal troponin delta gentleman with underlying CAD. Diagnoses Non-ST elevation AL (NSTEMI) I21.4
[2022-08-22 13:41] LABS: Magnesium 2.1 mg/dL (1.7-2.3)
--- NOTE | 2022-08-22 14:30 | PC.NURSE ---
Patient arrives to [facility] at 1420 from the ER.
[2022-08-22] MEDS: perflutren protein-a microsphr 0.22 mg/mL SDV 3 mL IV (15:49)
--- NOTE | 2022-08-22 17:05 | P.CONIM_ITS ---
Providers/Reason For Consult Consulting Physician/Specialty*: John Martin MD/ Cardiology Reason for Consult*: Chest pain Requesting Physician: Dr Rueda Attending Physician: Nader Busch Primary Care Provider: Wiley Clifford MD History of Present Illness History of Present Illness Oscar Marques is a 72 year old male with past medical history of CAD, hypertension who presented to hospital after he woke up with significant substernal chest discomfort. For the last several days he is noticing subst ernal pressure. Also is getting more short of breath. His baseline troponin was 6 mild elevation to 16 at 2 hours. EKG does not show significant ischemic changes. Review of Systems Const: Denies: fatigue Card: Reports: dyspnea on exertion; Denies: chest pain, palpitations, irregular heart rhythm, swelling of feet/ankles, lightheadedness, pre-syncope, orthopnea or leg pain with exertion Resp: Denies: dyspnea Musc: Denies: neck pain or back pain Neuro: Denies: headache(s) or dizziness Psych: Denies: anxiety, depression, suicidal ideation or homicidal ideation Joel/Lymph: Denies: easy bruising or easy bleeding Medications/Allergies Home Medications Medication Instructions Recorded Confirmed Last Taken Type metoprolol tartrate 25 mg tablet 25 mg PO BID@06/07/20 08/22/22 08/22/22 05:30 History simvastatin 20 mg tablet 20 mg PO DAILY@06/07/20 08/22/22 08/21/22 History ohabvzl-gfwspxnhwtnvq-cklwerqw 250 1 tab PO DAILY@06/21/20 08/22/22 08/21/22 History mg-250 mg-65 mg tablet (Excedrin Extra Strength) coenzyme Q10 75 mg capsule (Ultra 75 mg PO BEDTIME 11/11/20 08/22/22 08/21/22 History CoQ10) saw palm 160 mg-vit E 100 1 tab PO DAILY@11/11/20 08/22/22 08/21/22 History unit-selen 100 cay-yjhn-lmeqqu-pygeum tablet (Prostate Health) cholecalciferol (vitamin D3) 125 5,000 unit PO BEDTIME 08/22/22 08/22/22 08/21/22 History mcg (5,000 unit) tablet (Vitamin D3) docusate sodium 100 mg capsule 100 mg PO BEDTIME 08/22/22 08/22/22 08/21/22 History (Colace) inulin 2 gram chewable tablet 4 g PO BEDTIME 08/22/22 08/22/22 08/21/22 History (Fiber Gummies) lisinopril 2.5 mg tablet 2.5 mg PO DAILY@08/22/22 08/22/22 08/22/22 05:30 History multivitamin with minerals-folic 2 tab PO DAILY@08/22/22 08/22/22 08/21/22 History acid 200 mcg chewable tablet (Adult Multivitamin Gummies) tamsulosin 0.4 mg capsule 0.4 mg PO DAILY@08/22/22 08/22/22 08/21/22 History Allergies Allergy/AdvReac Type Severity Reaction Status Date / Time Bee and Wasps Allergy shock Uncoded 03/29/22 14:33 Current Medications Generic Name Dose Route Start Last Admin Trade Name Freq PRN Reason Stop Dose Admin Heparin Sodium (Porcine) 0 unit 08/22/22 10:01 08/22/22 10:21 Heparin 5,000 Unit/Ml Inj 1 Ml IV 4,000 unit PRN PRN Administration Heparin weight-base protocol Protocol Heparin Sodium/Sodium Chloride 25,000 unit in 500 mls @ 0 mls/hr 08/22/22 10:15 08/22/22 10:30 Heparin Drip IV 14 unit/kg/hr .Q0M DILLON 34.29 mls/hr Administration Protocol Per Protocol PFSH Acute PFSH: Medical History Asthma BPH loc w urin obs/LUTS Coronary artery disease Diverticulitis Enlarged prostate History of nonmelanoma skin cancer HTN (hypertension) Hyperlipidemia Lymphoma Osteoarthritis Port-A-Cath in place 05/23/2017 - right side Surgical History History of colonoscopy 2009 History of ventral hernia repair x2 Hx of bilateral inguinal hernia repair Hx of umbilical hernia repair Family History Father , AT AGE 65 CAD (coronary artery disease) Mother , AT AGE 86 Lung disease Hypertension Brother Cancer PROSTATE Denies family history of Diabetes Clotting disorder Dementia Hyperlipidemia Psychiatric illness Chronic kidney disease (CKD) Suicide Anesthesia complication Bleeding disorder Stroke Social History Smoking and tobacco status: never smoked Alcohol intake: never Marital status: Current occupational status: retired Vitals/I&O/Wt Last Vital Signs Temp 98.9 F 08/22/22 06:27 Pulse 85 08/22/22 16:00 Resp 17 08/22/22 16:00 BP 116/80 08/22/22 16:12 Pulse Ox 94 08/22/22 16:00 O2 Del Method Room Air 08/22/22 16:00 Weight last 48 hrs Weight 270 lb Physical Exam Narrative: GENERAL: Patient is alert, awake and oriented x3. [] NECK: No jugular vein distension. [] HEENT: No cyanosis. No icterus. No pallor. [] HEART: Regular S1 and S2. No murmur, rub or gallop. [] LUNGS: Clear to auscultate bilaterally. [] CENTRAL NERVOUS SYSTEM: Grossly nonfocal. [] EXTREMITIES: Lower extremities with 1+ Data 08/22/22 06:31 08/22/22 07:18 A&P Assessment and plan (1) HTN (hypertension): (2) Coronary artery disease: (3) Unstable angina: Plan Patient has presented with typical chest pain symptoms that have been worsening recently. His troponin had mild increase from 6-16 at 2 hours with a delta of 10. Given his symptoms and prior coronary artery disease history, we will proceed with coronary angiogram with possible percutaneous coronary intervention. Risks and benefits of the procedure have been discussed with the patient. N.p.o. past midnight. Echocardiogram ordered. Continue heparin gtt for now Thank you for involving us with care of this patient. We will continue to follow. Please call with questions. Consult Attestations Medical Necessity Statement: Care expected to cross 2 midnights. Coding Level of Care Code Acute Code for Chg Fwd Diagnoses HTN (hypertension) I10 Coronary artery disease I25.10 Unstable angina I20.0
[2022-08-22 18:17] LABS: D Dimer 3.39 ug/mIFEU (0-0.59)
[2022-08-22] MEDS: metoprolol tartrate 25 mg Tablet PO (19:54)
[2022-08-22] MEDS: docusate sodium 100 mg Capsule PO (19:54)
[2022-08-22 20:31] LABS: Partial Thromboplastin Time 159.5 SECONDS (23.9-36.7)
--- NOTE | 2022-08-22 20:36 | PC.NURSE ---
Dr. Shea contacted about critical PTT of 159.5. Given verbal order to hold Heparin for 30 mins, the decrease the rate by 5 mls/ hr for a toatl of 29/ mls per hour. Recheck PTT in one hour.
[2022-08-22 22:38] LABS: Partial Thromboplastin Time 93.1 SECONDS (23.9-36.7)
[2022-08-23] VITALS (13 sets, daily range): BP systolic 111–138; BP diastolic 67–90; PULSE 72–88; RESP 15–24; TEMP 36.9; O2SAT 90–97
[2022-08-23] MEDS: heparin drip 25,000 UNIT/500 ML PREMIX 27 UNIT IV (03:19)
--- NOTE | 2022-08-23 05:24 | XACV_ITS ---
Exam Room: [facility] Ht: 188 cm Wt: 122 kg BSA: 2.57 m2 Gender: Male : 1950 Exam Priority: Routine Procedure(s): Procedure Description: Diagnostic procedure Procedure Description: Left Heart Catheterization Procedure Description: Left ventriculography Procedure Description: Miscellaneous Procedure Description: Angio-Seal Procedure Description: Coronary Angiography Diagnostic Cath Status: Urgent Diagnostic Findings * INDICATION: 72 year old male with past medical history of CAD, hypertension who presented to hospital after he woke up with significant substernal chest discomfort. For the last several days he is noticing substernal pressure. Also is getting more short of breath. His baseline troponin was 6 mild elevation to 16 at 2 hours. EKG does not show significant ischemic changes. Initially I recommended a stress test however patient does not want to have stress testing done. Plan for coronary angiogram with possible percutaneous coronary intervention.. * No significant disease noted in the Left Main, Left Anterior Descending, right coronary artery.. * AV groove circumflex artery is chronic total occlusion after giving ofF large sized OM branch. * first Obtuse Marginal Branch Segment: mild 40% stenosis, JOHN: 3 flow. * Coronary angiography shows right dominance. Conclusions 1. No significant disease noted in the Left Main, Left Anterior Descending, right coronary artery.. 2. AV groove circumflex artery has ICU MANAGER. OM branch has mild to 40% stenosis. 3. Normal left ventricular systolic function. Ejection fraction of 50%. Recommendations * Aggressive risk factor modification. * Further work-up for alternative causes of chest discomfort and shortness of breath. * Outpatient cardiology follow-up in 2 weeks. Interventional RX Recommendation: medical therapy and/or counseling Diagnostic RX Recommendation: medical therapy and/or counseling Anticoagulation: Heparin Ventriculography Ejection Fraction: 50.0 % Pressures Phase:Rest AO : 104 / 84 ( 95 ) @ 7:36:00 AM 102 / 86 ( 94 ) @ 7:39:00 AM 129 / 52 ( 56 ) @ 7:44:00 AM 121 / 61 ( 85 ) @ 7:47:00 AM 119 / 60 ( 82 ) @ 7:47:00 AM LV : 138 / -14 / 11 @ 7:43:00 AM 122 / -17 / 5 @ 7:44:00 AM 129 / -21 / 6 @ 7:47:00 AM 127 / -17 / 5 @ 7:47:00 AM Valves Phase:DefaultPhase AV : 2.0 @ 10:18:03 AM 2.0 @ 10:18:03 AM AV Mean Gradient: 21.0 @ 10:18:03 AM Clinical Evaluation EBL: 5mL-10mL Procedural Details Procedure Consent Obtained. Admit Source: In Patient. Pre-Procedure Time Out. Identified patient by full name and date of as verbalized by the patient/guarantor. Does the consent match the physician's order: Yes. Accurate & Complete Informed Consent: Yes. Inpatient/Outpatient History & Physical on Chart: Yes. If H&P is completed, is and addenduem needed: No; If yes, is the addendum complete: N/A. Visualize and Verify Site with Patient/Guarantor: N/A. Relevant Radiology Images available: N/A. Pre-op teaching completed and patient verbalized understanding. The risks, benefits, and alternatives of sedation and/or procedure were discussed by physician. The patient agrees to continue. Procedure started. HA Clinical Fraility Score: 3: Managing Well. Commissary Officer Indications: New Onset Angina. Chest Pain Symptom Assessment: Typical Angina Symptoms. Correct patient, site and procedure confirmed by cath team. Current diagnosis: NSTEMI. PERRLA. Strong, equal hand oral and maxillofacial surgery resident bilaterally. Lungs clear x 5 lobes. IV Site on Arrival: 18 gauge in the left forearm. IV Fluids: 0.9% NaCl at KVO. 0 mL infused prior to computer laboratory technician. Pre Procedural Pulses: right radial was 3+. Pre Procedural Pulses: bilateral dorsalis pedis was Doppled. Oxygen started at 2liters/min via nasal canula. right groin was prepped with chloroprep then draped in the usual sterile fashion. right radial was prepped with chloroprep then draped in the usual sterile fashion. Physician notified. Baseline sample Acquired. HR: 85 BPM. Physician arrived. Physician scrubbed in. Immediate Pre-Procedure Time Out. Correct Patient: Yes; Correct Procedure: Yes; Correct Site: Yes; Correct Patient Position: Yes; Correct Supplies: Yes; Dried Flammable Prep: Yes; Blood Products Available: N/A;. Lidocaine 1% infiltrated to the right radial. Arterial access obtained. Needle access out. Manual compression held. Radial access aborted d/t spasm. R groin access attempted at this time. Lidocaine 1% infiltrated to the right groin. Ultrasound used to obtain R groin arterial access. Arterial access obtained with micropuncture set. A 5 pitcairn islander JL4 catheter in over wire. Multiple views taken of left coronary artery. Catheter removed over the standard wire. A 5 pitcairn islander JR4 catheter in over wire. Multiple views taken of right coronary artery. Catheter removed over the standard wire. A 5 pitcairn islander Angled Pig catheter in over wire. EDP Sample taken: LV 138/-15,11; HR: 82 BPM; SpO2: 87%. LV gram performed in MUSTAFA @ 10 mL/second for a total of 30 mL. EDP Sample taken: LV 122/-18,5; HR: 82 BPM; SpO2: 91%. EDP Sample taken: LV 129/-22,6; HR: 93 BPM; SpO2: 89%. Pullback taken: LV 127/-18,5; AO 121/61(85); Mean: 21mmHg, Peak to Peak: 2mmHg, SEP: 10sec/min; HR: 98 BPM; SpO2: 90%. Catheter out. A Right femoral angiogram was performed to determine safe placement of closure device. Lidocaine 1% infiltrated to the right groin. Angio-seal VIP inserted into R groin. A Angio-Seal VIP ([employer]) Lot# [id number] Exp 03/07/2023 was successful obtaining hemostatsis at the Right Femoral artery insertion site. Angioseal placed without complications. No signs or symptoms of hematoma noted. Sterile dressing applied per usual sterile fashion. Post Procedure: Pulses reassessed and unchanged. PERRLA. Strong, equal hand oral and maxillofacial surgery resident bilaterally. No VTE prophylaxis required. Medication's Wasted: Nitro = 49.95 mg. Medication's Wasted: Heparin = 1000 u. Medication's Wasted: Other = Benadryl 25 mg. Total IV fluids: 40 mL. Post-op diagnosis: Non Obstructive CAD. Complications: none. Estimated blood loss: 5mL-10mL. Responsiveness - Normal response to verbal stimuli; alert and oriented, PERRLA. Airway - Unaffected, no intervention required; spontaneous ventilation. Circulation: W/N/L, pulses unchanged. Procedure completed. Nausea/Vomiting: No. Patient transferred by bed to 1st floor. Vital chart was stopped. Access Site Site: Right Femoral artery Sheath Size: 6 Fr Hemostasis Method: Angio-Seal VIP ([employer]) Hemostasis Success: Successful Procedure Medications Start: 6:14 AM Stop: 6:14 AM Medication: Diphendryamine Amount: 25 mg Route: I.V. Start: 6:14 AM Stop: 6:14 AM Medication: Aspirin Amount: 324 mg Route: P.O. Start: 6:19 AM Stop: 6:19 AM Medication: Versed Amount: 1 mg Route: I.V. Start: 6:19 AM Stop: 6:19 AM Medication: Fentanyl Amount: 50 mcg Route: I.V. Start: 6:24 AM Stop: 6:24 AM Medication: Nitrogylcerin Amount: 50 mcg Route: I.A. Start: 6:31 AM Stop: 6:31 AM Medication: Versed Amount: 1 mg Route: I.V. Start: 6:31 AM Stop: 6:31 AM Medication: Fentanyl Amount: 25 mcg Route: I.V. Start: 6:51 AM Stop: 6:51 AM Medication: Fentanyl Amount: 25 mcg Route: I.V. I, the attending physician, have reviewed and verified all procedure medications. Yes, all medications given per verbal order History/Risk Factors Hypertension: Yes Dyslipidemia: Yes Peripheral Arterial Disease (PAD): No Myocardial Infarction ([place]): No Obesity: No Renal Disease: No Tobacco Use: Never Prior Interventions PCI: No CABG: No Valve Surgery: No Report Signatures Finalized by John Martin MD on 08/26/2022 03:51 PM
[2022-08-23 05:28] LABS: Partial Thromboplastin Time 93.1 SECONDS (23.9-36.7)
--- NOTE | 2022-08-23 06:10 | PC.NURSE ---
Pt. taken to [facility] at 0600.
--- NOTE | 2022-08-23 06:18 | W.PM.OPSUD ---
Surgery/Procedure H&P Update DATE OF PROCEDURE: August 23, 2022 DATE H&P PERFORMED: 08/22/22 H&P UPDATE INFORMATION: I have reviewed H&P completed within last 30 days, I have examined patient prior to procedure and No changes to prior documentation PREOP DIAGNOSIS: Worsening angina PRIMARY INDICATION FOR PROCEDURE: Worsening angina PLANNED PROCEDURE: Left heart cath with possible percutaneous coronary intervention PATIENT REASSESSED PRIOR TO SEDATION, WITH NO CHANGE NOTED: Yes PHYSICAL EXAM: alert, oriented x 3, clear to auscultation bilaterally and regular rate & rhythm AIRWAY EVAL/ANESTHESIA PLAN: normal airway, ASA III, Local Anesthesia, Risks, benefits & alternatives of sedation and/or procedure discussed and Patient agrees to continue as planned
--- NOTE | 2022-08-23 07:06 | P.PN_ITS ---
Subjective Subjective: Patient is doing well. Underwent coronary angiogram that showed patent coronary arteries with HOUSEKEEPING WORKER of distal left circumflex artery which is unchanged from before. Vitals/I&O/Wt Last Vital Signs Temp 98.4 F 08/23/22 04:07 Pulse 81 08/23/22 05:46 Resp 19 H 08/23/22 04:07 BP 128/72 08/23/22 04:07 Pulse Ox 93 08/23/22 04:07 O2 Del Method Room Air 08/22/22 23:56 08/22/22 08/23/22 08/23/22 22:59 06:59 14:59 Intake Total 390.055 / 390.055 109.945 / 500.000 Balance 390.055 / 390.055 109.945 / 500.000 Weight last 48 hrs Weight 270 lb Physical Exam Narrative: GENERAL: Patient is alert, awake and oriented x3. [] NECK: No jugular vein distension. [] HEENT: No cyanosis. No icterus. No pallor. [] HEART: Regular S1 and S2. No murmur, rub or gallop. [] LUNGS: Clear to auscultate bilaterally. [] CENTRAL NERVOUS SYSTEM: Grossly nonfocal. [] EXTREMITIES: Lower extremities with 1+ Data 08/22/22 06:31 08/22/22 07:18 A&P Assessment and plan (1) HTN (hypertension): (2) Coronary artery disease: (3) Unstable angina: Plan Coronary arteries are patent. He has HOUSEKEEPING WORKER of proximal left circumflex artery which is unchanged from before. Continue medical therapy. Recommend dual antiplatelet therapy with aspirin and Plavix. Can add low-dose Imdur. N.p.o. past midnight. Thank you for involving us with care of this patient. Patient is stable to be discharged from cardiology standpoint. Please call with questions. Attestations Medical Necessity Statement*: Care expected to cross 2 midnights. Coding Level of Care Code Acute Code for [facility] Fwd Diagnoses HTN (hypertension) I10 Coronary artery disease I25.10 Unstable angina I20.0
--- NOTE | 2022-08-23 10:33 | PC.CHAP ---
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 superintendent pipelines visit [] Patient/Family/Request visit [] Outpatient visit [] Follow-up visit [] Physician referral [] Code/Alert [x] Routine visit [] Staff referral [] Actively dying [] Patient sleeping [] Family support [] [] Out of room [] Palliative care [] [x] Receiving care in room [] Pre-surgical visit [] Trauma [] Long length of stay [] ICU visit [] Other: Relational/Emotional Strength [x] Patient feels connected with others/family/visitors/staff [] Distress [] Loneliness/isolation [] Abandonment Spirituality of Patient [x] Person of Arlette [] Attends Protestant of their [place] [x] Believes in Prayer [] Reads Bible or Voodoo materials [] There are Spiritual issues to be addressed Craniologist Interventions [x] Prayer [x] Active listening [x] Non-anxious presence [x] Spiritual/emotional support [] Crisis/trauma care [x] Spiritual counseling [] Bereavement support [] Provided bereavement packet [] Provided Bible/devotional materials [] Provided toy/stuffed animal, coloring book to patient or family member [] Provided Communion [] Anointing/[place] [] Salvation [x] Completed spiritual assessment [] Other: Impact on Illness or Injury [] Angry [] Fearful [] Anxious [] Often cries [] Exhaustion [] Unable to work [] Unable to attend protestant [] Unable to walk/stand [] Unable to read [] Unable to drive [] Unable to eat/drink [] Unable to sleep [] Unable to be with family [] Patient intubated [] Other: Summary check up heart positive going home + 1 wfe Time spent with patient 10 mins
--- NOTE | 2022-08-23 11:22 | CT_ITS ---
WS: [id number] CTA OF THE CHEST WITH PULMONARY EMBOLISM PROTOCOL TECHNIQUE: High-resolution contrast enhanced CTA of the chest with coronal and sagittal reformatted i mages with pulmonary embolism protocol. MIP images are also reviewed. CLINICAL INFORMATION: assess for PE COMPARISON: None. DLP: 512.[address] scans at [facility] use at least one of these dose optimization techniques: automated e xposure control; mA and/or kV adjustment per patient size (includes targeted exams where dose is matc hed to clinical indication); or iterative reconstruction. FINDINGS: Proximal main coronary arteries are normal. Extensive bilateral RIGHT greater than LEFT filling defec ts in the segmental and subsegmental pulmonary arteries throughout both lungs compatible with pulmona ry embolus. Evidence of RIGHT heart strain. Mild chronic emphysematous changes. Slight bibasilar atelectasis. Normal caliber thoracic aorta. Hammad nary calcification. No mediastinal or hilar lymphadenopathy. No axillary lymphadenopathy. Small esophageal hiatal hernia. Adrenal glands are normal. Partially visualized hepatomegaly. Hypertrophic changes thoracic spine. CT/CT angio chest PE protcl [id number] IMPRESSION: 1. Extensive bilateral pulmonary embolus RIGHT greater than LEFT. Proximal jeffrey n pulmonary arteries are normal. 2. Evidence of RIGHT heart strain. This can be further evaluated with echocard iography. 3. No acute pulmonary infiltrates. Slight bibasilar atelectasis. Mild chronic emphysematous changes. 4. Normal caliber thoracic aorta. Coronary calcification. Discussed with patient's nurse at 08/23/2022 12:27 PM.
[2022-08-23] MEDS: iohexol 350 mg/mL 500 mL Btl (per mL) IV (11:52)
[2022-08-23] MEDS: apixaban 5 mg Tablet 10 MG PO (13:57)
--- NOTE | 2022-08-23 15:45 | PM.DCS ---
Discharge Providers Date of Admission: 08/22/22 10:10 Date of Discharge: August 23, 2022 Attending Provider at Admission: Nader Busch Attending Provider at Discharge: Nader Busch Primary Care Provider: Wiley Clifford MD Diagnoses at Discharge Discharge Diagnosis (1) Pulmonary emboli: Status: Acute (2) HTN (hypertension): Status: Acute (3) Coronary artery disease: Status: Acute (4) Unstable angina: Status: Acute Reason for Visit Reason for Visit: chest pain Brief History: Oscar Marques is a 72 year old male Pleasant 72-year-old gentleman was admitted for assessment management after episode of chest pain which woke him up at 4 AM this morning.? On and off he has been having some chest discomfort last several days and noticed has been getting more short of breath with exertion.? Denies lower extremity edema.? No orthopnea.? Chest pain did not improve after he took antacids at home.? Symptoms did show improvement with nitro.? In ER troponin is 6 at baseline, at 2 hours up to 16 with positive delta of 10.? EKG without acute ischemic changes.? He is currently free of chest pain.? Has had a prior angiogram back in May 2020 with [employer] mid LCx. Hospital Course Hospital Course He was started empirically on anticoagulation, aspirin, monitored with telemetry. TTE was assessed with finding of normal ejection fraction, grade 1 diastolic dysfunction, trace MVR, trace TVR. He was assessed by cardiology. With chest pain symptoms, positive troponin delta, history of coronary disease he was assessed by coronary angiography. [employer] of distal LCx found unchanged from before. He will continue on Plavix per discussion with cardiology. He did not have pleuritic pain, no cough, no tachycardia, did have some exertional dyspnea, lower extremity edema. D-dimer was not reassuring, however. He initially wanted to return home, but on discussion subsequently agreed for additional evaluation. VQ scan was requested, patient preferred CTA in the interest of time which was performed after discussion of risk of TILA. This showed extensive bilateral pulmonary emboli, evidence of right heart strain. Discussed with him and his . On TTE right ventricle noted with normal size and function. He has been maintaining blood pressure, maintain saturation. He does not want to stay longer in the hospital, but is willing to start oral anticoagulation with DOAC after discussion of options. Discussed, Eliquis possibly slightly lower risk of bleeding, initially started, however, they found that Xarelto is likely going to be more affordable, so requested medication change for discharge. He understands the risks, and knows to look for any new or concerning symptoms to seek help. Please reassess his vitals and oxygenation, recovery from PEs, anticoagulation, blood counts. Monitor for pulmonary hypertension. Reassess for post phlebitis syndrome. Continue to optimize cardiovascular risk factors. Physical Exam Narrative: Accompanied by his spouse. Const: COMMON NORMALS: patient oriented x3 and alert GENERAL APPEARANCE: cooperative ORIENTATION/CONSCIOUSNESS: Yes awake HENMT: COMMON NORMALS: oropharynx normal Neck/C-Spine: COMMON NORMALS: no JVD Resp: COMMON NORMALS: normal respiratory effort and clear to auscultation bilaterally AUSCULTATION: clear to auscultation bilaterally Cardio: COMMON NORMALS: no JVD, regular rhythm, S1 normal heart sound present, S2 normal heart sound present and No murmurs present (Cardio) RHYTHM: regular rhythm HEART SOUNDS: S1 normal heart sound present and S2 normal heart sound present GI: COMMON NORMALS: Normal to inspection, nondistended, normoactive bowel sounds present, Soft to palpation and non-tender PALPATION: Yes Soft to palpation Extremity: COMMON NORMALS: no joint enlargement and no pedal edema OTHER: Right groin without any bleeding, bruising or swelling. No pulsatile mass. Neuro: COMMON NORMALS: patient oriented x3 and moves all extremities SENSORIUM/ORIENTATION: Yes alert Skin: COMMON NORMALS: no rashes or lesions noted GENERAL SKIN EXAM: no rashes or lesions noted Discharge Data Studies Completed and Pending Completed Studies During Hospitalization Category Date Time Status CTA chest [CT angio chest PE protcl [id number]] Stat Cat Scan 08/23/22 11:22 Completed XR chest 1V portable [id number] Stat Exams 08/22/22 06:35 Completed CV. echo wo/w contrast [id number] Routine Ultrasound 08/22/22 13:01 Completed Pending at discharge Category Date Time Status SLAG WHEELER request for service Routine Exams 08/23/22 05:24 Taken Radiology Impressions Chest X-Ray 08/22/22 06:35 IMPRESSION: Lungs are well aerated without a focal area of consolidation. Chest CTA 08/23/22 11:22 IMPRESSION: 1. Extensive bilateral pulmonary embolus RIGHT greater than LEFT. Proximal main pulmonary arteries are normal. 2. Evidence of RIGHT heart strain. This can be further evaluated with echocardiography. 3. No acute pulmonary infiltrates. Slight bibasilar atelectasis. Mild chronic emphysematous changes. 4. Normal caliber thoracic aorta. Coronary calcification. Discussed with patient's nurse at 08/23/2022 12:27 PM. Laboratory Results WBC 8.5 10^3/uL (4.0-10.0) 08/22/22 06:31 RBC 4.54 10^6/uL (4.1-5.3) 08/22/22 06:31 Hgb 14.5 g/dL (11.7-16.6) 08/22/22 06:31 Hct 43.5 % (42.0-52.0) 08/22/22 06:31 MCV 95.8 fl (80-94) H 08/22/22 06:31 MCH 31.9 pg (28.0-34.0) 08/22/22 06:31 MCHC 33.3 g/dL (30.0-36.0) 08/22/22 06:31 RDW 12.8 % (12.1-15.1) 08/22/22 06:31 Plt Count 238 10^3/cmm (130-400) 08/22/22 06:31 MPV 9.1 fL (7.4-10.4) 08/22/22 06:31 Neut % (Auto) 58.6 % 08/22/22 06:31 Lymph % (Auto) 27.6 % 08/22/22 06:31 Geary % (Auto) 7.5 % 08/22/22 06:31 Eos % (Auto) 5.1 % 08/22/22 06:31 Baso % (Auto) 0.8 % 08/22/22 06:31 Neut # (Auto) 4.97 10^3/uL (1.8-7.7) 08/22/22 06:31 Lymph # (Auto) 2.3 10^3/uL (0.8-4.8) 08/22/22 06:31 Geary # (Auto) 0.6 10^3/uL (0.2-0.9) 08/22/22 06:31 Eos # (Auto) 0.4 10^3/uL (0.0-0.8) 08/22/22 06:31 Baso # (Auto) 0.1 10^3/uL (0.0-0.1) 08/22/22 06:31 Nucleated RBC % (auto) 0 % 08/22/22 06:31 Nucleated RBCs # 0.0 /100WBC 08/22/22 06:31 PT 13.50 SECONDS (12.1-14.9) 08/22/22 06:31 INR 1.00 (0.8-1.2) 08/22/22 06:31 APTT 93.1 SECONDS (23.9-36.7) H 08/23/22 04:27 D-Dimer 3.39 ug/mIFEU (0-0.59) H 08/22/22 17:54 Sodium 138 mmol/L (136-145) 08/22/22 07:18 Potassium 4.2 mmol/L (3.5-5.1) 08/22/22 07:18 Chloride 103 mmol/L (98-107) 08/22/22 07:18 Carbon Dioxide 26 mmol/L (22-29) 08/22/22 07:18 Anion Gap 13.2 (5-19) 08/22/22 07:18 BUN 11 mg/dL (8-23) 08/22/22 07:18 Creatinine 0.9 mg/dL (0.7-1.2) 08/22/22 07:18 GFR Calculation Not Reportable 08/22/22 07:18 Glucose 96 mg/dL (65-115) 08/22/22 07:18 Calculated Osmolality 285 mOsm/kg (285-295) 08/22/22 07:18 Calcium 9.2 mg/dL (8.5-10.5) 08/22/22 07:18 Magnesium 2.1 mg/dL (1.7-2.3) 08/22/22 07:18 Total Bilirubin 0.3 mg/dL (0.15-1.2) 08/22/22 07:18 AST 18 U/L (0-40) 08/22/22 07:18 ALT 16 U/L (0-41) 08/22/22 07:18 Alkaline Phosphatase 81 U/L (40-130) 08/22/22 07:18 Troponin T Baseline 6 ng/L (0-15) 08/22/22 06:31 Troponin T 120 Minute 16.01 ng/L (0-15) H 08/22/22 08:52 Delta Troponin T 10.01 ABS# (0-10) H* 08/22/22 08:52 Troponin T Hi Sens 6Hr 11.69 ng/L (0-15) 08/22/22 12:06 Troponin T Hi Sens 6Hr Delta 5.69 ng/L (0-12) 08/22/22 12:06 Total Protein 6.4 g/dL (6.6-8.7) L 08/22/22 07:18 Albumin 3.9 g/dL (3.5-5.2) 08/22/22 07:18 Globulin 2.5 g/dL (1.3-4.6) 08/22/22 07:18 Urine Color Yellow (Yellow) 08/22/22 06:55 Urine Appearance Clear (CLEAR) 08/22/22 06:55 Urine pH 5 (5-7) 08/22/22 06:55 Ur Specific [place] 1.015 (1.005-1.030) 08/22/22 06:55 Urine Protein Neg (Negative) 08/22/22 06:55 Urine Glucose (UA) Norm (Normal) 08/22/22 06:55 Urine Ketones Negative (Negative) 08/22/22 06:55 Urine Blood Neg (Negative) 08/22/22 06:55 Urine Nitrate Negative (Negative) 08/22/22 06:55 Urine Bilirubin Neg (Negative) 08/22/22 06:55 Urine Urobilinogen Neg mg/dL (Negative) 08/22/22 06:55 Ur Leukocyte Esterase Negative (Negative) 08/22/22 06:55 Vitals Last Vital Signs Temp 98.4 F 08/23/22 04:07 Pulse 80 08/23/22 14:00 Resp 16 08/23/22 12:16 BP 128/90 08/23/22 12:16 Pulse Ox 96 08/23/22 14:39 O2 Del Method Room Air 08/23/22 12:16 Discharge Plan Discharge Patient Disposition: Home Condition: Stable Prescriptions: New clopidogrel 75 mg tablet 75 mg PO DAILY Qty: 90 0RF Xarelto 15 mg tablet 15 mg PO BID 21 Days Qty: 42 0RF Rx Instructions: must administer with a meal/food Xarelto 20 mg tablet 20 mg PO DAILY Qty: 90 0RF Rx Instructions: After 21 days of 15mg BID. Must administer with evening meal furosemide 20 mg tablet 20 mg PO DAILY PRN (Reason: edema) Qty: 30 0RF Rx Instructions: If worsening edema Continued Ultra CoQ10 75 mg capsule 75 mg PO BEDTIME Prostate Health 160-100-100 mg-unit-mcg tablet 1 tab PO DAILY@08 simvastatin 20 mg tablet 20 mg PO DAILY@08 metoprolol tartrate 25 mg tablet 25 mg PO BID@08,20 Colace 100 mg Capsule 100 mg PO BEDTIME lisinopril 2.5 mg tablet 2.5 mg PO DAILY@08 Vitamin D3 125 mcg (5,000 unit) Tablet 5,000 unit PO BEDTIME Adult Multivitamin Gummies 200 mcg Tablet,Chewable 2 tab PO DAILY@08 Fiber Gummies 2 gram Tablet,Chewable 4 g PO BEDTIME tamsulosin 0.4 mg capsule 0.4 mg PO DAILY@08 Discontinued Excedrin Extra Strength 250-250-65 mg tablet 1 tab PO DAILY@08 Discharge Orders: Discharge Order (Routine); Ordered 08/23/22 Ordered By: Nader Busch Referrals: Melisa Avila FNP [Nurse Practitioner] - 08/30/22 11:00 am Wiley Clifford MD [Primary Care Provider] - 09/03/22 8:40 am Discharge Diet: Cardiac Discharge Activity: Increase activity as tolerated and Limit activity as instructed Patient Instructions: Furosemide (By mouth) (Lasix), Clopidogrel (By mouth) (Plavix), Rivaroxaban (By mouth) (Xarelto, Xarelto Starter Pack), Pulmonary Embolism (GEN), Heart Catheterization (DC), Opioid Safety, Post Angiogram Home Care Instructions, Post Heart Attack Stoplight Activity Restrictions/Additional Instructions: Follow-up with your primary doctor regarding pulmonary emboli and continued optimization of cardiovascular risk factors due to known coronary artery disease. Consider reassessment, monitoring for development of pulmonary hypertension. Avoid injury, exercise caution due to being on blood thinners. Take Xarelto 15 mg twice daily for 21 days, then switch to 20 mg once daily. In case you experience any significant worsening of shortness of breath, chest pain, feeling faint or losing consciousness, low blood pressures, low oxygen saturation, bleeding that will not stop or any other concerning or significant bleeding seek medical attention immediately. Take Lasix only if edema is worsening. Monitor blood pressure at least twice daily, write down values to bring to appointment. Discharge Attestations Time Spent in Discharge Care*: greater than 30 min Quality Metrics Clinical Quality Measures [ No reported AMI, CVA or VTE this stay] Coding Level of Care Code 16329 Total time (in minutes) for Discharge: 75 Diagnoses Pulmonary emboli I26.99 HTN (hypertension) I10 Coronary artery disease I25.10 Unstable angina I20.0
== END 2022-08-23 16:45 | disposition home or self-care (01) ==
LOC: ER 09:31 → CSU 13:19 → ER IP 08-23 06:53
PROVIDERS: Internal Medicine; Admitting Provider Internal Medicine; Emergency Provider Family Medicine; PCP Family Medicine; Visit Provider Internal Medicine
DX: I26.99 Other pulmonary embolism without acute cor pulmonale (principal); I10 Essential (primary) hypertension; I25.110 Atherosclerotic heart disease of native coronary artery with unstable angina pectoris; N40.1 Benign prostatic hyperplasia with lower urinary tract symptoms; N13.8 Other obstructive and reflux uropathy; E78.5 Hyperlipidemia, unspecified; M19.90 Unspecified osteoarthritis, unspecified site; I45.10 Unspecified right bundle-branch block; Z79.4 Long term (current) use of insulin
CPT/HCPCS: 36415; 71045; 71275; 80053; 81003; 83735; 84484; 85025; 85378; 85610; 85730; 93005; 93458; 94760; 96365; 96366; 96375; 99152; 99153; 99285; C1760; C1769; C1887; C1894; C8929; G0378; J1200; J1644; J2250; J3010; J3490; J7030; Q9956; Q9967

== ENCOUNTER → 2022-08-30 09:30 | Outpatient (BNVA) | payer MEDICARE, OTHER, SELFPAY | PROVIDERS: PCP Family Medicine; Visit Provider Nurse Practitioner Family | DX: L57.8 Other skin changes due to chronic exposure to nonionizing radiation (principal); L57.0 Actinic keratosis; L81.4 Other melanin hyperpigmentation; D22.5 Melanocytic nevi of trunk; Z71.89 Other specified counseling; L85.3 Xerosis cutis; Z09 Encounter for follow-up examination after completed treatment for conditions other than malignant neoplasm; Z85.828 Personal history of other malignant neoplasm of skin | CPT/HCPCS: 17004; 99213 ==

== ENCOUNTER → 2022-08-30 10:36 | Outpatient (BNVA) | payer MEDICARE, OTHER, SELFPAY | PROVIDERS: PCP Family Medicine; Visit Provider Nurse Practitioner Family | DX: I26.99 Other pulmonary embolism without acute cor pulmonale (principal); I25.10 Atherosclerotic heart disease of native coronary artery without angina pectoris; I10 Essential (primary) hypertension; Z09 Encounter for follow-up examination after completed treatment for conditions other than malignant neoplasm | CPT/HCPCS: 36415; 80048 ==

== ENCOUNTER → 2022-08-30 10:36 | Outpatient (BNVA) | payer MEDICARE, OTHER, SELFPAY | PROVIDERS: PCP Family Medicine; Visit Provider Nurse Practitioner Family | DX: I26.99 Other pulmonary embolism without acute cor pulmonale (principal); I25.10 Atherosclerotic heart disease of native coronary artery without angina pectoris; I10 Essential (primary) hypertension; Z09 Encounter for follow-up examination after completed treatment for conditions other than malignant neoplasm | CPT/HCPCS: 36415; 80048; 99214 ==

== ENCOUNTER 2022-09-04 12:25 | Outpatient (CLI) | payer MEDICARE, OTHER, SELFPAY ==
--- NOTE | 2022-09-04 13:25 | USCV_ITS ---
Oscar Marques Age: 72 Gender: M : 1950 Exam Date: 09/04/2022 13:31 Ordering Phys: Melisa Avila Technologist: MACHO Exam Location: [facility] – [place]_ Indication: H/O PE HISTORY: Patient has history of. Pulmonary embolism. PROCEDURES: Venous duplex imaging was performed in bilateral lower extremities. The following venous structures were evaluated: common femoral vein, profunda vein, proximal portion of the greater saphenous vein, superficial femoral vein, and the popliteal vein. In addition, the posterior tibial and peroneal trunk were evaluated. Serial compression, augmentation maneuvers, and spectral Doppler flow evaluation were performed. FINDINGS: + DVT seen in Left PTV at calf. All other veins appear patent in BLE Patient currently on blood thinners CONCLUSIONS DVT Left PTV in the calf Remaining veins bilateral are patent Computational Geneticist left message for provider at time of exam Patient currently on blood thinners Damien Luis MD (Electronically Signed) Final Date: 04 September 2022 13:58 S
== END 2022-09-04 12:26 | disposition home or self-care (01) ==
LOC: RAD 12:29
PROVIDERS: PCP Family Medicine; Visit Provider Nurse Practitioner Family
DX: I82.442 Acute embolism and thrombosis of left tibial vein (principal); Z86.718 Personal history of other venous thrombosis and embolism
CPT/HCPCS: 93970

== ENCOUNTER 2022-10-03 14:57 | Outpatient (CLI) | payer MEDICARE, OTHER, SELFPAY ==
--- NOTE | 2022-10-03 16:30 | CT_ITS ---
WS: [id number] CT CHEST, ABDOMEN AND PELVIS WITH CONTRAST HISTORY: Lymphoma surveillance. TECHNIQUE: Contiguous 5 mm axial imaging performed through the chest, abdomen and pelvis with IV cont rast, oral contrast has been provided. Coronal and sagittal reformats chest. Coronal and sagittal ref ormats through the abdomen and pelvis. All CT scans at [facility] use at least one of these d ose optimization techniques: automated exposure control; mA and/or kV adjustment per patient size (in cludes targeted exams where dose is matched to clinical indication); or iterative reconstruction. CONTRAST: Omnipaque 350; 100 mL IV. DLP: 1466.21 mGy.cm COMPARISON: 08/23/2022, 07/26/2020 and 07/11/[address]: Mildly expanded lungs. No mass or pneumonia. Mild dependent changes and a few 3 mm nodules at the lung bases. A similar to the prior study. There is very minimal groundglass attenuation RIGHT lower lobe. Normal size aorta and pulmonary artery. No residual pulmonary embolism. Heart is normal s ize. No mediastinal or hilar adenopathy. No axillary lymph nodes. Abdomen CT: Mild hepatic steatosis. 5 mm cyst RIGHT lobe. Normal portal vein. Normal gallbladder and pancreas. Normal size spleen. Normal adrenal glands. Very mild bilateral perinephric stranding with n o obstruction. No renal mass identified. Normal aorta. Stomach is fluid distended with mixed debris. No small bowel obstruction. Mild diffuse constipation t hroughout the colon. Normal appendix. Distal colon diverticula. No ascites or adenopathy. Small fat-containing abdominal wall hernia. Pelvic CT: Prostate gland is enlarged encroaching into the urinary bladder. Small RIGHT lateral blad manolo diverticulum. No free fluid or adenopathy. No inguinal lymph nodes. Mild degenerative disc disease and spondylosis. No destructive bone lesions identified. CT/CT chest abdpel w/*[id number] IMPRESSION: 1. No lymphadenopathy within the chest, abdomen or pelvis. 2. Normal size spleen. 3. Prostate enlargement. 4. Hepatic steatosis. 5. RIGHT lateral bladder diverticulum.
[2022-10-03] MEDS: iohexol 350 mg/mL 500 mL Btl (per mL) PO (16:34)
[2022-10-03] MEDS: iohexol 350 mg/mL 500 mL Btl (per mL) IV (16:35)
== END 2022-10-03 14:58 | disposition home or self-care (01) ==
LOC: RAD 14:59
PROVIDERS: PCP Family Medicine; Visit Provider Internal Medicine Medical Oncology
DX: C85.90 Non-Hodgkin lymphoma, unspecified, unspecified site (principal)
CPT/HCPCS: 71260; 74177; Q9967

== ENCOUNTER 2022-10-16 12:53 | Oncology outpatient (recurring) (ONCR) | payer MEDICARE, OTHER, SELFPAY ==
[2022-10-16 13:12] VITALS: BP 109/70; PULSE 78; RESP 16; TEMP 36.6; O2SAT 94; BMI 35.1
[2022-10-16 13:31] LABS: Basophils % 0.5 %; Eosinophils # 0.2 10^3/uL (0.0-0.8); Hematocrit 42.1 % (42.0-52.0); Hemoglobin 14.1 g/dL (11.7-16.6); Lymphocytes # 1.7 10^3/uL (0.8-4.8); Lymphocytes % 22.5 %; Mean Corpuscular HGB Conc 33.5 g/dL (30.0-36.0); Mean Corpuscular Hemoglobin 32.3 pg (28.0-34.0); Mean Corpuscular Volume 96.6 fl (80-94); Mean Platelet Volume 8.7 fL (7.4-10.4); Monocytes # 0.5 10^3/uL (0.2-0.9); Monocytes % 6.3 %; Neutrophils # 5.15 10^3/uL (1.8-7.7); Neutrophils % 67.3 %; Nucleated Red Blood Cells % 0 %; Platelet Count 243 10^3/cmm (130-400); Red Blood Count 4.36 10^6/uL (4.1-5.3); Red Cell Distribution Width 12.6 % (12.1-15.1); White Blood Count 7.7 10^3/uL (4.0-10.0)
[2022-10-16 13:46] LABS: Alanine Aminotransferase 16 U/L (0-41); Albumin Level 3.9 g/dL (3.5-5.2); Alkaline Phosphatase 69 U/L (40-130); Anion Gap 11.3 (5-19); Aspartate Amino Transferase 14 U/L (0-40); Blood Urea Nitrogen 11 mg/dL (8-23); Calcium 8.9 mg/dL (8.5-10.5); Carbon Dioxide 28 mmol/L (22-29); Chloride 106 mmol/L (98-107); Globulin 2.3 g/dL (1.3-4.6); Glucose 102 mg/dL (65-115); Lactate Dehydrogenase 152 U/L (135-225); Osmolality Calculated 292 mOsm/kg (285-295); Potassium 4.3 mmol/L (3.5-5.1); Sodium 141 mmol/L (136-145); Total Bilirubin 0.3 mg/dL (0.15-1.2); Total Protein 6.2 g/dL (6.6-8.7)
== END 2022-11-15 23:59 | disposition home or self-care (01) ==
PROVIDERS: Internal Medicine Medical Oncology; PCP Family Medicine; Visit Provider Nurse Practitioner Family
DX: Z08 Encounter for follow-up examination after completed treatment for malignant neoplasm (principal); Z85.72 Personal history of non-Hodgkin lymphomas; R53.0 Neoplastic (malignant) related fatigue; G62.0 Drug-induced polyneuropathy; T45.1X5A Adverse effect of antineoplastic and immunosuppressive drugs, initial encounter; I26.99 Other pulmonary embolism without acute cor pulmonale; I82.502 Chronic embolism and thrombosis of unspecified deep veins of left lower extremity; Z79.01 Long term (current) use of anticoagulants; Z79.899 Other long term (current) drug therapy; Z92.21 Personal history of antineoplastic chemotherapy; Z92.3 Personal history of irradiation
CPT/HCPCS: 36415; 80053; 83615; 85025; 99214

== ENCOUNTER → 2022-11-21 13:51 | Outpatient (BNVA) | payer MEDICARE, OTHER, SELFPAY | PROVIDERS: PCP Family Medicine; Visit Provider Podiatrist Foot & Ankle Surgery | DX: L60.3 Nail dystrophy (principal) | CPT/HCPCS: 99213 ==

== ENCOUNTER → 2022-12-13 09:47 | Outpatient (BNVA) | payer MEDICARE, OTHER, SELFPAY | PROVIDERS: PCP Family Medicine; Visit Provider Podiatrist Foot & Ankle Surgery | DX: L60.3 Nail dystrophy (principal) | CPT/HCPCS: 11750 ==

== ENCOUNTER 2023-02-25 08:11 | Outpatient (CLI) | payer MEDICARE, OTHER, SELFPAY ==
--- NOTE | 2023-02-25 08:45 | USCV_ITS ---
Oscar Marques Age: 72 Gender: M : 1950 Exam Date: 02/25/2023 08:43 Ordering Phys: Melisa Avila Technologist: Exam Location: [facility] [place]_ Indication: bilat edema PROCEDURES: The venous duplex Doppler examination of both lower extremities was performed in the standard fashion. The following venous structures were evaluated: common femoral vein, profunda vein, proximal portion of the greater saphenous vein, superficial femoral vein, and the popliteal vein. In addition, the posterior tibial and peroneal trunk were evaluated. FINDINGS: Normal 2-D Doppler and augmentation and compressibility throughout the lower extremity venous structures. Additional imaging through the proximal calf veins also reveals no thrombus. Limited evaluation of the greater saphenous vein is patent with no thrombus. CONCLUSIONS No evidence of right lower extremity DVT. No evidence of left lower extremity DVT. Damien Luis MD (Electronically Signed) Final Date: 25 February 2023 09:15 S
--- NOTE | 2023-02-25 09:30 | CT_ITS ---
WS: [id number] CTA OF THE CHEST WITH PULMONARY EMBOLISM PROTOCOL TECHNIQUE: High-resolution contrast enhanced CTA of the chest with coronal and sagittal reformatted i mages with pulmonary embolism protocol. MIP images are also reviewed. CLINICAL INFORMATION: bilat PE COMPARISON: CTA 08/23/2022 DLP: 492.[address] scans at [facility] use at least one of these dose optimization techniques: automated e xposure control; mA and/or kV adjustment per patient size (includes targeted exams where dose is matc hed to clinical indication); or iterative reconstruction. FINDINGS: Proximal pulmonary arteries are normal. Normal segmental and subsegmental pulmonary arteries. No evid ence of pulmonary embolus. Previously described pulmonary embolus has resolved. Normal caliber thoracic aorta. Aortic calcification. Coronary calcification. No mediastinal or hilar lymphadenopathy. Chronic emphysematous changes. Slight subsegmental atelectasis in the lung bases. No acute pulmonary infiltrates. Adrenal glands are normal. Small esophageal hiatal hernia. IMPRESSION: 1. No evidence of pulmonary embolus. 2. Chronic emphysematous changes. 3. Small esophageal hiatal hernia. 4. No mediastinal or hilar lymphadenopathy.
[2023-02-25 09:47] LABS: Blood Urea Nitrogen 10 mg/dL (8-23)
[2023-02-25] MEDS: iohexol 350 mg/mL 500 mL Btl (per mL) IV (09:58)
== END 2023-02-25 08:12 | disposition home or self-care (01) ==
PROVIDERS: PCP Family Medicine; Visit Provider Nurse Practitioner Family
DX: I26.99 Other pulmonary embolism without acute cor pulmonale (principal); I25.10 Atherosclerotic heart disease of native coronary artery without angina pectoris; Z09 Encounter for follow-up examination after completed treatment for conditions other than malignant neoplasm; J43.9 Emphysema, unspecified
CPT/HCPCS: 36415; 71275; 80048; 82565; 84520; 93970; Q9967

== ENCOUNTER → 2023-03-28 12:27 | Outpatient (BNVA) | payer MEDICARE, OTHER, SELFPAY | PROVIDERS: PCP Family Medicine; Visit Provider Internal Medicine | DX: I26.99 Other pulmonary embolism without acute cor pulmonale (principal); I25.10 Atherosclerotic heart disease of native coronary artery without angina pectoris; I10 Essential (primary) hypertension; Z79.01 Long term (current) use of anticoagulants | CPT/HCPCS: 99214 ==

== ENCOUNTER → 2023-04-25 14:46 | Outpatient (BNVA) | payer MEDICARE, OTHER, SELFPAY | PROVIDERS: PCP Family Medicine; Visit Provider Dermatology | DX: Z85.828 Personal history of other malignant neoplasm of skin (principal); L57.0 Actinic keratosis; L82.0 Inflamed seborrheic keratosis; L81.4 Other melanin hyperpigmentation; L57.8 Other skin changes due to chronic exposure to nonionizing radiation; L82.1 Other seborrheic keratosis | CPT/HCPCS: 17000; 17110; 99213 ==

== ENCOUNTER → 2023-08-13 12:42 | Outpatient (BNVA) | payer MEDICARE, OTHER, SELFPAY | PROVIDERS: PCP Family Medicine; Visit Provider Podiatrist Foot & Ankle Surgery | DX: S92.425B Nondisplaced fracture of distal phalanx of left great toe, initial encounter for open fracture; L03.032 Cellulitis of left toe; W20.8XXA Other cause of strike by thrown, projected or falling object, initial encounter | CPT/HCPCS: 11730; 73630; 99213 ==

== ENCOUNTER → 2023-08-20 14:39 | Outpatient (BNVA) | payer MEDICARE, OTHER, SELFPAY | PROVIDERS: PCP Family Medicine; Visit Provider Podiatrist Foot & Ankle Surgery | DX: S92.425D Nondisplaced fracture of distal phalanx of left great toe, subsequent encounter for fracture with routine healing (principal); X58.XXXD Exposure to other specified factors, subsequent encounter | CPT/HCPCS: 99213 ==

== ENCOUNTER → 2023-10-03 15:24 | Outpatient (BNVA) | payer MEDICARE, OTHER, SELFPAY | PROVIDERS: PCP Family Medicine; Visit Provider Internal Medicine | DX: I26.99 Other pulmonary embolism without acute cor pulmonale (principal); I25.10 Atherosclerotic heart disease of native coronary artery without angina pectoris; I10 Essential (primary) hypertension | CPT/HCPCS: 99214 ==

== ENCOUNTER → 2023-10-31 14:15 | Outpatient (BNVA) | payer MEDICARE, OTHER, SELFPAY | PROVIDERS: PCP Family Medicine; Visit Provider Nurse Practitioner Family | DX: D48.5 Neoplasm of uncertain behavior of skin (principal); L57.0 Actinic keratosis; L81.4 Other melanin hyperpigmentation; L82.1 Other seborrheic keratosis; L57.8 Other skin changes due to chronic exposure to nonionizing radiation; Z85.828 Personal history of other malignant neoplasm of skin | CPT/HCPCS: 11102; 17000; 99213 ==

== ENCOUNTER → 2024-01-01 14:11 | Outpatient (BNVA) | payer MEDICARE, OTHER, SELFPAY | PROVIDERS: PCP Family Medicine; Visit Provider Dermatology | DX: D22.72 Melanocytic nevi of left lower limb, including hip (principal); L73.8 Other specified follicular disorders; L81.4 Other melanin hyperpigmentation; L21.8 Other seborrheic dermatitis; L57.8 Other skin changes due to chronic exposure to nonionizing radiation | CPT/HCPCS: 96573; J7308 ==

== ENCOUNTER 2024-02-22 13:29 | Emergency (ER) | payer MEDICARE, OTHER, SELFPAY ==
--- NOTE | 2024-02-22 13:40 | ED_ITS ---
HPI - General Adult 2 General: Chief complaint: Abdominal Pain Stated complaint: LEFT FLANK PAIN Time Seen by Provider: 02/22/24 13:38 History of Present Illness: 73-year-old male presents emergency room via EMS he was basically thrown by a bull. He was at ground-level level got his head down and lifted him up through him over a feed bunker. He is on Xarelto. He did have some med on his head but he said he did not actually hit his head per se. He was not knocked out there is no loss of consciousness he denies any other injuries he was ambulatory at the scene. Associated symptoms: Deny chest pain, dyspnea or rash Related Data Home Medications Medication Instructions Recorded Confirmed cholecalciferol (vitamin D3) 125 5,000 unit PO BEDTIME 08/22/22 02/22/24 mcg (5,000 unit) tablet (Vitamin D3) atorvastatin 40 mg tablet 40 mg PO DAILY 10/03/23 02/22/24 Previous Rx's Medication Instructions Recorded rivaroxaban 20 mg tablet 20 mg PO DAILY #90 tabs 03/28/23 Allergies Allergy/AdvReac Type Severity Reaction Status Date / Time bee venom protein (honey bee) Allergy shock Verified 01/15/24 10:33 venom-wasp Allergy shock Verified 01/15/24 10:33 Review of Systems 2 Const: Denies: fever(s) or chills Card: Denies: chest pain Resp: Denies: dyspnea GI: Denies: abdominal pain : Denies: dysuria, urinary frequency or urinary urgency Musc: Denies: neck pain or back pain Skin/Breast: Denies: rash PFSH ED 2 PFSH: Medical History Pulmonary emboli Asthma Diverticulitis Osteoarthritis BPH loc w urin obs/LUTS History of nonmelanoma skin cancer Lymphoma Coronary artery disease Hyperlipidemia HTN (hypertension) Surgical History History of colonoscopy 2009 History of ventral hernia repair x2 Hx of umbilical hernia repair Hx of bilateral inguinal hernia repair Family History Father , AT AGE 65 CAD (coronary artery disease) Mother , AT AGE 86 Lung disease Hypertension Brother Cancer PROSTATE Denies family history of Diabetes Clotting disorder Dementia Hyperlipidemia Psychiatric illness Chronic kidney disease (CKD) Suicide Anesthesia complication Bleeding disorder Stroke Social History Smoking and tobacco/nicotine status: never used tobacco/nicotine Alcohol intake: never Marital status: Current occupational status: retired Physical Exam 2 Const: COMMON NORMALS: no acute distress GENERAL APPEARANCE: cooperative and comfortable ORIENTATION/CONSCIOUSNESS: Yes awake, Yes oriented to person, Yes oriented to place and Yes oriented to time HENMT: COMMON NORMALS: normocephalic, atraumatic and hearing grossly normal bilaterally HEAD & SCALP: normocephalic and atraumatic Resp: COMMON NORMALS: normal respiratory effort, No retractions, No use of accessory muscles and clear to auscultation bilaterally AUSCULTATION: clear to auscultation bilaterally Cardio: COMMON NORMALS: regular rate, regular rhythm and No murmurs present (Cardio) RATE: regular rate RHYTHM: regular rhythm GI: COMMON NORMALS: No hepatosplenomegaly present AUSCULTATION: Yes normoactive bowel sounds PALPATION: Yes Tenderness to palpation present (GI) Details: LUQ (Left flank, abrasions noted on the skin), No Guarding due to palpation present (GI) and Yes No hepatosplenomegaly present Extremity: COMMON NORMALS: normal to inspection, capillary refill normal, no clubbing, cyanosis or edema, no calf tenderness and no pedal edema Neuro: SENSORIUM/ORIENTATION: Yes oriented to person, Yes oriented to place and Yes oriented to time Skin: COMMON NORMALS: no rashes or lesions noted GENERAL SKIN EXAM: no rashes or lesions noted Course 2 Vital Signs: Vital signs: Vital Signs Temperature 98.5 F 02/22/24 13:44 Pulse Rate 74 02/22/24 16:23 Respiratory Rate 17 02/22/24 17:24 Blood Pressure 118/65 02/22/24 15:23 Pulse Oximetry 95 02/22/24 17:24 Oxygen Delivery Me thod Room Air 02/22/24 13:44 [facility] - General Adult Medical Decision Making CT shows a retroperitoneal hematoma 2.8 x 1.3 cm. Patient has a renal fracture. He is having grossly bloody hematuria at this time. Will transfer via ground ambulance to [place] the time of this dictation as well pressure is 125/70 with pulse of 73. Patient is on chronic anticoagulation. He is having some more discomfort at this time we will give him 25 mcg of fentanyl. Medical Records I reviewed the patient's medical records. Lab Data I reviewed the patient's lab results. 02/22/24 13:59 02/22/24 13:59 Radiology Impressions Cervical Spine CT 02/22/24 13:50 IMPRESSION: 1. No CT evidence of acute cervical spine traumatic injury. 2. Additional findings, as above. Chest/Abdomen/Pelvis CT 02/22/24 13:50 IMPRESSION: No evidence of acute traumatic injury to the chest. IMPRESSION: 1. Findings concerning for subcapsular hematoma along the posterior aspect of the left kidney measuring up to 2.8 cm. Possible small laceration also along the posterior left kidney. Findings compatible with grade I-II injury. Associated keek-[id number] perinephric fat stranding. No discrete perinephric fluid collection or evidence of retroperitoneal hematoma. 2. Additional ancillary findings as above. 3. THIS REPORT CONTAINS FINDINGS THAT MAY BE CRITICAL TO PATIENT CARE. 4. The findings were verbally communicated via telephone conference with DR. SAUCEDO at 4:11 PM STEAM DISTRIBUTION SUPERVISOR on 02/22/2024. 5. The findings were acknowledged and understood. COMMENTS: Consistent with the [employer]'s Incidental Findings Committee white paper (J Am Darcy Radiol 2018): Any incidental renal lesion less than 1 cm or classified as too small to characterize, or any incidental cystic renal lesion characterized as simple-appearing, is likely benign. No follow-up imaging is recommended for these lesions per consensus recommendations based on imaging criteria. Head CT 02/22/24 13:50 IMPRESSION: 1. No CT evidence of acute intracranial pathology. 2. Additional findings, as above. Laboratory Results WBC 11.13 10^3/uL (3.29-11.43) 02/22/24 13:59 RBC 4.49 10^6/uL (3.85-5.65) 02/22/24 13:59 Hgb 14.10 g/dL (11.27-16.99) 02/22/24 13:59 Hct 42.9 % (37-53) 02/22/24 13:59 MCV 95.5 fl (82-101) 02/22/24 13:59 MCH 31.4 pg (27-33) 02/22/24 13:59 MCHC 32.9 g/dL (30-55) 02/22/24 13:59 RDW 12.8 % (12.1-15.1) 02/22/24 13:59 Plt Count 268 10^3/cmm (157-399) 02/22/24 13:59 MPV 8.7 fL (7.4-10.4) 02/22/24 13:59 Neut % (Auto) 81.0 % 02/22/24 13:59 Lymph % (Auto) 11.8 % 02/22/24 13:59 Clark % (Auto) 5.8 % 02/22/24 13:59 Eos % (Auto) 0.6 % 02/22/24 13:59 Baso % (Auto) 0.5 % 02/22/24 13:59 Neut # (Auto) 9.02 10^3/uL (1.8-7.7) H 02/22/24 13:59 Lymph # (Auto) 1.3 10^3/uL (0.8-4.8) 02/22/24 13:59 Clark # (Auto) 0.6 10^3/uL (0.2-0.9) 02/22/24 13:59 Eos # (Auto) 0.1 10^3/uL (0.0-0.8) 02/22/24 13:59 Baso # (Auto) 0.1 10^3/uL (0.0-0.1) 02/22/24 13:59 Nucleated RBC % (auto) 0 % 02/22/24 13:59 Nucleated RBCs # 0.0 /100WBC 02/22/24 13:59 Sodium 137 mmol/L (136-145) 02/22/24 13:59 Potassium 4.2 mmol/L (3.5-5.1) 02/22/24 13:59 Chloride 102 mmol/L (98-107) 02/22/24 13:59 Carbon Dioxide 24 mmol/L (22-29) 02/22/24 13:59 Anion Gap 15.2 (5-19) 02/22/24 13:59 BUN 19 mg/dL (8-23) 02/22/24 13:59 Creatinine 1.5 mg/dL (0.7-1.2) H 02/22/24 13:59 GFR Calculation Not Reportable 02/22/24 13:59 Glucose 127 mg/dL (65-115) H 02/22/24 13:59 Calculated Osmolality 288 mOsm/kg (285-295) 02/22/24 13:59 Calcium 9.6 mg/dL (8.5-10.5) 02/22/24 13:59 Total Bilirubin 0.6 mg/dL (0.15-1.2) 02/22/24 13:59 AST 22 U/L (0-40) 02/22/24 13:59 ALT 20 U/L (0-41) 02/22/24 13:59 Alkaline Phosphatase 84 U/L (40-130) 02/22/24 13:59 Total Protein 6.7 g/dL (6.6-8.7) 02/22/24 13:59 Albumin 4.1 g/dL (3.5-5.2) 02/22/24 13:59 Globulin 2.6 g/dL (1.3-4.6) 02/22/24 13:59 Lipase 37 U/L (13-60) 02/22/24 13:59 Urine Color Red (Yellow) A 02/22/24 15:29 Urine Appearance Turbid (CLEAR) A 02/22/24 15:29 Urine pH (5-7) 02/22/24 15:29 Ur Specific [place] Not Reportable 02/22/24 15:29 Urine Protein Not Reportable 02/22/24 15:29 Urine Glucose (UA) Not Reportable 02/22/24 15:29 Urine Ketones Not Reportable 02/22/24 15:29 Urine Blood Not Reportable 02/22/24 15:29 Urine Nitrate Not Reportable 02/22/24 15:29 Urine Bilirubin Not Reportable 02/22/24 15:29 Urine Urobilinogen Not Reportable 02/22/24 15:29 Ur Leukocyte Esterase Not Reportable 02/22/24 15:29 Urine RBC Too numerous to cnt /hpf (0-2) H 02/22/24 15:29 Urine WBC Too numerous to cnt /hpf (0-5) H 02/22/24 15:29 Ur Squamous Epith Cells 0-4 /hpf (0-5) H 02/22/24 15:29 Amorphous Sediment Not Reportable 02/22/24 15:29 Urine Bacteria 2+ /hpf (NONE) H 02/22/24 15:29 Blood Type O Negative 02/22/24 15:48 Rho(D) Type Rh negative 02/22/24 15:48 Antibody Screen Negative 02/22/24 15:48 All radiology interpretation(s) finalized by discharge Discharge Plan Discharge Patient Disposition: Transfer to ED Clinical Impression: Fractured left kidney, Diffuse large B-cell lymphoma of lymph nodes of multiple regions, Retroperitoneal hematoma, History of pulmonary embolus (PE), Chronic anticoagulation Condition: Stable Prescriptions: No Action rivaroxaban 20 mg tablet 20 mg PO DAILY Qty: 90 3RF Rx Instructions: must administer with evening meal atorvastatin 40 mg tablet 40 mg PO DAILY cholecalciferol (vitamin D3) [Vitamin D3] 125 mcg (5,000 unit) Tablet 5,000 unit PO BEDTIME Referrals: Wiley Clifford MD [Primary Care Provider] - Coding Level of Care Code ED Home Decorator for Yolette Glaser
[2024-02-22 13:44] VITALS: BP 102/64; PULSE 102; RESP 17; TEMP 36.9; O2SAT 99; BMI 34.7
--- NOTE | 2024-02-22 13:50 | CTR_ITS ---
PROCEDURE INFORMATION: Exam: CT Head Without Contrast Exam date and time: 02/22/2024 2:49 PM Age: 73 years old Clinical indication: Injury or trauma; Other: Bull attack; Blunt trauma (contusions or hematomas); Without loss of consciousness TECHNIQUE: Imaging protocol: Computed tomography of the head without contrast. Axial, coronal and sagittal reformatted images were created and reviewed. Radiation optimization: All CT scans at this facility use at least one of these dose optimization techniques: automated exposure control; mA and/or kV adjustment per patient size (includes targeted exams where dose is matched to clinical indication); or iterative reconstruction. COMPARISON: CT cervical spin wo con* [id number] 02/22/2024 2:49 PM RADIATION DOSE METRICS: Total DLP (mGy-cm): 1269.6 FINDINGS: Brain: Patchy areas of hypoattenuation in the periventricular and subcortical white matter, consistent with chronic small vessel ischemic disease. No CT evidence of acute intracranial hemorrhage or acute territorial infarction. No significant mass effect or midline shift. Basal cisterns patent. Cerebral ventricles: Prominence of the cortical sulci, cisterns and ventricular system, consistent with cerebral and cerebellar volume loss. Paranasal sinuses: Unremarkable. No fluid levels. Mastoid air cells: Grossly unremarkable. Bones: Mild polypoid ethmoid, maxillary and left sphenoid sinus mucosal thickening. No air-fluid levels. Soft tissues: Grossly unremarkable. Vasculature: Calcific atherosclerotic disease in the cavernous internal carotid arteries, as well as the vertebro-basilar system. CT/CT head wo con* [id number] IMPRESSION: 1. No CT evidence of acute intracranial pathology. 2. Additional findings, as above.
--- NOTE | 2024-02-22 13:50 | CTR_ITS ---
PROCEDURE INFORMATION: Exam: CT Cervical Spine Without Contrast Exam date and time: 02/22/2024 2:49 PM Age: 73 years old Clinical indication: Injury or trauma; Other: Attacked by bull; Blunt trauma TECHNIQUE: Imaging protocol: Computed tomography of the cervical spine without contrast. Axial, coronal and sagittal reformatted images were created and reviewed. Radiation optimization: All CT scans at this facility use at least one of these dose optimization techniques: automated exposure control; mA and/or kV adjustment per patient size (includes targeted exams where dose is matched to clinical indication); or iterative reconstruction. COMPARISON: CT head wo con* [id number] 02/22/2024 2:49 PM RADIATION DOSE METRICS: Total DLP (mGy-cm): 1107.9 FINDINGS: Bones: Normal cervical lordosis. No CT evidence of acute fracture, dislocation or subluxation. Alignment anatomic. Vertebral body heights maintained. Mild multilevel spondylosis without significant spinal canal or neural foraminal stenosis. Lungs: Lung apices are normal. Soft tissues: Grossly unremarkable. CT/CT cervical spin wo con* [id number] IMPRESSION: 1. No CT evidence of acute cervical spine traumatic injury. 2. Additional findings, as above.
--- NOTE | 2024-02-22 13:50 | CTR_ITS ---
PROCEDURE INFORMATION: Exam: CT Chest With Contrast; Diagnostic Exam date and time: 02/22/2024 2:56 PM Age: 73 years old Clinical indication: Injury or trauma; Other: Attacked by bull; Luq; Blunt trauma (contusions or hematomas) TECHNIQUE: Imaging protocol: Diagnostic computed tomography of the chest with contrast. Radiation optimization: All CT scans at this facility use at least one of these dose optimization techniques: automated exposure control; mA and/or kV adjustment per patient size (includes targeted exams where dose is matched to clinical indication); or iterative reconstruction. Contrast material: OMNIPAQUE 350; Contrast volume: 100 ml; Contrast route: INTRAVENOUS (IV); COMPARISON: CT angio chest PE protcl [id number] 02/25/2023 9:49 AM RADIATION DOSE METRICS: Total DLP (mGy-cm): 1666.13 FINDINGS: Trachea: Saber sheath morphology of the trachea. Lungs: Scattered subpleural reticular opacities are similar to prior and likely represent atelectasis/scarring. No focal consolidation. Stable 6 mm nodule in the left lung base. A few additional scattered sub 6 mm nodules are also unchanged. Pleural spaces: Unremarkable. No pneumothorax. No pleural effusion. Heart: Unremarkable. No cardiomegaly. No pericardial effusion. Coronary arteries: Multivessel coronary artery calcifications. Lymph nodes: Unremarkable. No enlarged lymph nodes. Vasculature: Mild atherosclerotic aortic calcifications. No aortic aneurysm. No evidence of acute aortic injury. Diaphragm: Small sliding hiatal hernia. Bones/joints: Degenerative changes of the thoracic spine. Multilevel anterior osteophytes. No acute fracture. Soft tissues: Unremarkable. PROCEDURE INFORMATION: Exam: CT Abdomen And Pelvis With Contrast Exam date and time: 02/22/2024 2:56 PM Age: 73 years old Clinical indication: Injury or trauma; Other: Attacked by bull; Luq; Blunt trauma (contusions or hematomas) TECHNIQUE: Imaging protocol: Computed tomography of the abdomen and pelvis with contrast. Radiation optimization: All CT scans at this facility use at least one of these dose optimization techniques: automated exposure control; mA and/or kV adjustment per patient size (includes targeted exams where dose is matched to clinical indication); or iterative reconstruction. Contrast material: OMNIPAQUE 350; Contrast volume: 100 ml; Contrast route: INTRAVENOUS (IV); COMPARISON: CT chest abdpel w/*[id number] 10/03/2022 4:20 PM RADIATION DOSE METRICS: Total DLP (mGy-cm): 1666.13 FINDINGS: Liver: Mild hepatic steatosis. Subcentimeter hepatic hypodensity remains too small to characterize but likely represents a cyst. Gallbladder and biliary ducts: Normal. No calcified stones. No ductal dilation. Pancreas: Mild pancreatic atrophy. No ductal dilatation. Spleen: Normal. No splenomegaly. Adrenal glands: Normal. No mass. Kidneys and ureters: Similar tiny nonobstructing right renal calculus. Stomach and bowel: Colonic diverticulosis without acute diverticulitis. No evidence of bowel obstruction. Appendix: No evidence of appendicitis. Intraperitoneal space: Unremarkable. No free air. No significant fluid collection. Retroperitoneal space: 2.8 x 1.3 cm oblong complex focus along the posterior aspect of the left lower pole. A small ill-defined linear hypodensity is also seen in the vicinity (series 6, image 38). Dnqy-[id number] perinephric fat stranding on the left with mild ill-defined fat stranding extending along the left retroperitoneum into the pelvis. Vasculature: Unremarkable. No abdominal aortic aneurysm. Lymph nodes: Unremarkable. No enlarged lymph nodes. Urinary bladder: Unremarkable as visualized. Reproductive: Similar prostatomegaly. Symmetric seminal vesicles. Bones/joints: Slight grade 1 anterolisthesis of L5 on S1 with moderate degenerative disc disease at this level. No acute fracture visualized. Soft tissues: Unremarkable. CT/CT chest abdpel w/*[id number] IMPRESSION: No evidence of acute traumatic injury to the chest. IMPRESSION: 1. Findings concerning for subcapsular hematoma along the posterior aspect of the left kidney measuring up to 2.8 cm. Possible small laceration also along the posterior left kidney. Findings compatible with grade I-II injury. Associated [id number] perinephric fat stranding. No discrete perinephric fluid collection or evidence of retroperitoneal hematoma. 2. Additional ancillary findings as above. 3. THIS REPORT CONTAINS FINDINGS THAT MAY BE CRITICAL TO PATIENT CARE. 4. The findings were verbally communicated via telephone conference with DR. SAUCEDO at 4:11 PM PIERCING MILL OPERATOR on 02/22/2024. 5. The findings were acknowledged and understood. COMMENTS: Consistent with the [employer]'s Incidental Findings Committee white paper (J Am Darcy Radiol 2018): Any incidental renal lesion less than 1 cm or classified as too small to characterize, or any incidental cystic renal lesion characterized as simple-appearing, is likely benign. No follow-up imaging is recommended for these lesions per consensus recommendations based on imaging criteria.
[2024-02-22 14:05] LABS: Basophils # 0.1 10^3/uL (0.0-0.1); Basophils % 0.5 %; Eosinophils # 0.1 10^3/uL (0.0-0.8); Eosinophils % 0.6 %; Hematocrit 42.9 % (37-53); Lymphocytes # 1.3 10^3/uL (0.8-4.8); Lymphocytes % 11.8 %; Mean Corpuscular HGB Conc 32.9 g/dL (30-55); Mean Corpuscular Hemoglobin 31.4 pg (27-33); Mean Corpuscular Volume 95.5 fl (82-101); Mean Platelet Volume 8.7 fL (7.4-10.4); Monocytes # 0.6 10^3/uL (0.2-0.9); Monocytes % 5.8 %; Neutrophils # 9.02 10^3/uL (1.8-7.7); Nucleated Red Blood Cells % 0 %; Platelet Count 268 10^3/cmm (157-399); Red Blood Count 4.49 10^6/uL (3.85-5.65); Red Cell Distribution Width 12.8 % (12.1-15.1); White Blood Count 11.13 10^3/uL (3.29-11.43)
[2024-02-22 14:27] LABS: Alanine Aminotransferase 20 U/L (0-41); Albumin Level 4.1 g/dL (3.5-5.2); Alkaline Phosphatase 84 U/L (40-130); Anion Gap 15.2 (5-19); Aspartate Amino Transferase 22 U/L (0-40); Blood Urea Nitrogen 19 mg/dL (8-23); Calcium 9.6 mg/dL (8.5-10.5); Carbon Dioxide 24 mmol/L (22-29); Chloride 102 mmol/L (98-107); Creatinine Clr Calc Pharmacy 60.9874; Globulin 2.6 g/dL (1.3-4.6); Glucose 127 mg/dL (65-115); Lipase 37 U/L (13-60); Osmolality Calculated 288 mOsm/kg (285-295); Potassium 4.2 mmol/L (3.5-5.1); Sodium 137 mmol/L (136-145); Total Bilirubin 0.6 mg/dL (0.15-1.2); Total Protein 6.7 g/dL (6.6-8.7)
[2024-02-22] MEDS: iohexol 350 mg/mL 500 mL Btl (per mL) IV (15:01)
[2024-02-22 15:23] VITALS: BP 118/65; PULSE 89; O2SAT 96
[2024-02-22] MEDS: sodium chloride 0.9% 1,000 ML 999 ML IV (16:01)
[2024-02-22 16:08] LABS: Add Urine Microscopic? NO
[2024-02-22 16:16] LABS: Urine Appearance Turbid (CLEAR); Urine Color Red (Yellow)
[2024-02-22 16:17] LABS: UA Manual Slide Review YES
[2024-02-22 16:18] LABS: Add Urine Culture? Yes; Bacteria Urine 2+ /hpf; RBC Urine TOO NUMEROUS TO CNT /hpf (0-2); Squamous Epithelial Cell Urine 0-4 /hpf (0-5); WBC Urine TOO NUMEROUS TO CNT /hpf (0-5)
[2024-02-22 16:19] LABS: Charge for UA Resulting for Rev
[2024-02-22 16:23] VITALS: PULSE 74; O2SAT 94
[2024-02-22 16:25] VITALS: RESP 17; O2SAT 95
[2024-02-22] MEDS: fentaNYL 50 mcg/mL INJ 2mL 25 MCG IVP (16:25)
[2024-02-22 17:24] VITALS: RESP 17; O2SAT 95
[2024-02-22] MEDS: fentaNYL 50 mcg/mL INJ 2mL IVP (17:24)
[2024-02-22 17:36] VITALS: BP 125/90; PULSE 64; O2SAT 96
== END 2024-02-22 17:37 ==
PROVIDERS: Emergency Medicine; Emergency Provider Family Medicine; PCP Family Medicine
DX: S37.092A Other injury of left kidney, initial encounter (principal); C83.38 Diffuse large B-cell lymphoma, lymph nodes of multiple sites; K68.3 Retroperitoneal hematoma; Z86.711 Personal history of pulmonary embolism; Z79.01 Long term (current) use of anticoagulants; I25.10 Atherosclerotic heart disease of native coronary artery without angina pectoris; E78.5 Hyperlipidemia, unspecified; I10 Essential (primary) hypertension; V80.919A Animal-rider injured in unspecified transport accident, initial encounter
CPT/HCPCS: 36415; 70450; 71260; 72125; 74177; 80053; 81003; 83690; 85025; 86850; 86900; 87086; 96374; 96376; 99285; J3010; J7030

== ENCOUNTER → 2024-04-01 14:00 | Outpatient (BNVA) | payer MEDICARE, OTHER, SELFPAY | PROVIDERS: PCP Family Medicine; Visit Provider Nurse Practitioner Family | DX: L57.0 Actinic keratosis (principal); X32.XXXA Exposure to sunlight, initial encounter; L21.8 Other seborrheic dermatitis; Z08 Encounter for follow-up examination after completed treatment for malignant neoplasm; Z85.828 Personal history of other malignant neoplasm of skin; D48.5 Neoplasm of uncertain behavior of skin | CPT/HCPCS: 11102; 17000; 99214 ==

== ENCOUNTER → 2024-07-09 12:45 | Outpatient (BNVA) | payer MEDICARE, OTHER, SELFPAY | PROVIDERS: PCP Family Medicine; Visit Provider Internal Medicine | DX: I25.118 Atherosclerotic heart disease of native coronary artery with other forms of angina pectoris (principal); I10 Essential (primary) hypertension; Z86.711 Personal history of pulmonary embolism; Z79.01 Long term (current) use of anticoagulants | CPT/HCPCS: 99214 ==

== ENCOUNTER 2024-08-19 17:08 | Outpatient (CLI) | payer MEDICARE, OTHER, SELFPAY ==
--- NOTE | 2024-08-19 17:15 | CTR_ITS ---
PROCEDURE INFORMATION: Exam: CT Chest With Contrast; Diagnostic Exam date and time: 08/19/2024 6:09 PM Age: 74 years old Clinical indication: Abnormal findings; Abnormal radiologic exam of lung or chest; Follow up to abnormal CT chest TECHNIQUE: Imaging protocol: Diagnostic computed tomography of the chest with contrast. Radiation optimization: All CT scans at this facility use at least one of these dose optimization techniques: automated exposure control; mA and/or kV adjustment per patient size (includes targeted exams where dose is matched to clinical indication); or iterative reconstruction. Contrast material: OMNIPAQUE 350; Contrast volume: 100 ml; Contrast route: INTRAVENOUS (IV); COMPARISON: CT chest abdpel w/*[id number] 02/22/2024 2:56 PM RADIATION DOSE METRICS: Total DLP (mGy-cm): 550.03 FINDINGS: Lungs: 8 mm non solid pulmonary nodule, rounded pneumonia or scar in the left lower lobe which previously appeared solid and measured 6 mm in diameter. Followup according to infectious disease, pulmonary or oncology protocol axial series 3, image 46. Pleural spaces: Unremarkable. No pneumothorax. No pleural effusion. Heart: Unremarkable. No cardiomegaly. No pericardial effusion. Coronary arteries: Stable severe calcified coronary artery disease. Lymph nodes: Unremarkable. No enlarged lymph nodes. Vasculature: Calcification of the thoracic aorta and/or great vessels consistent with atherosclerotic vessel disease. Calcification of the thoracic aorta and/or great vessels consistent with atherosclerotic vessel disease. Bones/joints: Moderate thoracic spondylosis. Soft tissues: Unremarkable. CT/CT chest w con* [id number] IMPRESSION: 8 mm non solid pulmonary nodule, rounded pneumonia or scar in the left lower lobe which previously appeared solid and measured 6 mm in diameter. Followup according to infectious disease, pulmonary or oncology protocol axial series 3, image 46.
[2024-08-19 18:06] LABS: Blood Urea Nitrogen 12 mg/dL (8-23)
[2024-08-19] MEDS: iohexol 350 mg/mL 500 mL Btl (per mL) IV (18:22)
== END 2024-08-19 17:09 | disposition home or self-care (01) ==
PROVIDERS: PCP Family Medicine; Visit Provider Family Medicine
DX: R93.89 Abnormal findings on diagnostic imaging of other specified body structures (principal); R91.8 Other nonspecific abnormal finding of lung field; I25.10 Atherosclerotic heart disease of native coronary artery without angina pectoris; I70.0 Atherosclerosis of aorta; M47.894 Other spondylosis, thoracic region
CPT/HCPCS: 71260; 82565; 84520

== ENCOUNTER → 2024-09-29 12:52 | Outpatient (BNVA) | payer MEDICARE, OTHER, SELFPAY | PROVIDERS: PCP Family Medicine; Visit Provider Nurse Practitioner Family | DX: L81.4 Other melanin hyperpigmentation (principal); D22.5 Melanocytic nevi of trunk; Z08 Encounter for follow-up examination after completed treatment for malignant neoplasm; Z85.828 Personal history of other malignant neoplasm of skin; L57.0 Actinic keratosis; D48.5 Neoplasm of uncertain behavior of skin | CPT/HCPCS: 11102; 17004; 69100; 99213 ==

== ENCOUNTER → 2024-10-20 08:25 | Outpatient (BNVA) | payer MEDICARE, OTHER, SELFPAY | PROVIDERS: PCP Family Medicine; Visit Provider Dermatology | DX: L73.9 Follicular disorder, unspecified (principal); C44.222 Squamous cell carcinoma of skin of right ear and external auricular canal; L57.0 Actinic keratosis | CPT/HCPCS: 11642; 13152; 17000; 99213 ==

== ENCOUNTER → 2024-12-31 15:10 | Outpatient (BNVA) | payer MEDICARE, OTHER, SELFPAY | PROVIDERS: PCP Family Medicine; Visit Provider Internal Medicine | DX: I25.10 Atherosclerotic heart disease of native coronary artery without angina pectoris (principal); I10 Essential (primary) hypertension; Z86.711 Personal history of pulmonary embolism; Z79.01 Long term (current) use of anticoagulants | CPT/HCPCS: 99214 ==

== ENCOUNTER 2025-03-04 13:54 | Outpatient (CLI) | payer MEDICARE, OTHER, SELFPAY ==
--- NOTE | 2025-03-04 13:58 | CTR_ITS ---
PROCEDURE INFORMATION: Exam: CT Chest With Contrast; Diagnostic Exam date and time: 03/04/2025 2:19 PM Age: 74 years old Clinical indication: Abnormal findings; Abnormal radiologic exam of lung or chest; HX of lymphoma; Additional info: Abnormal chest CT TECHNIQUE: Imaging protocol: Diagnostic computed tomography of the chest with contrast. Radiation optimization: All CT scans at this facility use at least one of these dose optimization techniques: automated exposure control; mA and/or kV adjustment per patient size (includes targeted exams where dose is matched to clinical indication); or iterative reconstruction. Contrast material: OMNI 350; Contrast volume: 100 ml; Contrast route: INTRAVENOUS (IV); COMPARISON: CT chest w con* [id number] 08/19/2024 6:09 PM RADIATION DOSE METRICS: Total DLP (mGy-cm): 636.18 FINDINGS: Thyroid: Mildly atrophic thyroid. Lungs: Stable 7 mm left lower lobe nodule on series 5, image 47, not significantly changed since at least 02/22/2024. A few additional sub 6 mm nodules are also unchanged. No new or enlarging pulmonary nodules. Mild subpleural reticular opacities scattered throughout bilateral lungs are similar to prior and likely represent mild fibrosis. No focal consolidation. Pleural spaces: Unremarkable. No pneumothorax. No pleural effusion. Heart: Unremarkable. No cardiomegaly. No pericardial effusion. Lymph nodes: Unremarkable. No enlarged lymph nodes. Vasculature: Unremarkable. No aortic aneurysm. Diaphragm: Small sliding-type hiatal hernia. Liver: Hepatic steatosis. Bones/joints: Mild degenerative changes of the thoracic spine. Soft tissues: Unremarkable. CT/CT chest w con* [id number] IMPRESSION: 1. No acute findings. 2. Stable 6 mm left lower lobe nodule. 3. No thoracic lymphadenopathy.
[2025-03-04] MEDS: iohexol 350 mg/mL 500 mL Btl (per mL) IV (14:26)
== END 2025-03-04 13:55 | disposition home or self-care (01) ==
LOC: RAD 13:54
PROVIDERS: PCP Family Medicine; Visit Provider Family Medicine
DX: R93.89 Abnormal findings on diagnostic imaging of other specified body structures (principal); E04.1 Nontoxic single thyroid nodule; K44.9 Diaphragmatic hernia without obstruction or gangrene
CPT/HCPCS: 71260

== ENCOUNTER → 2025-03-16 10:31 | Outpatient (BNVA) | payer MEDICARE, OTHER, SELFPAY | PROVIDERS: PCP Family Medicine; Visit Provider Podiatrist Foot & Ankle Surgery | DX: I73.9 Peripheral vascular disease, unspecified (principal); L60.3 Nail dystrophy; G62.9 Polyneuropathy, unspecified | CPT/HCPCS: 11721 ==